=== PATIENT | female | born 1940 | race Two or more races ===

== ENCOUNTER → 2017-04-07 | Outpatient (CLI) | payer OTHER, MEDICAID ==
[2015-08-22 13:05] VITALS: BP 162/81
--- NOTE | 2017-04-07 13:37 | RAD ---
Ankle brachial index Indication: Claudication. Comparison: None. Procedure: Arterial pressures are measured in the arms and ankles. Findings: Right ankle (PT): 135 mm Hg. Right arm: 134 mm Hg. Left ankle (DP): 131 mm Hg. Left arm: 129 mm Hg. Right MADELINE: 1.0. Left MADELINE: 0.97. Impression: Normal MADELINE. Bilateral lower extremity arterial Doppler Comparison: None. Findings: Grayscale, color Doppler, and spectral Doppler imaging was performed of the arteries of both lower extremities. The common femoral artery, superficial femoral artery, profunda femoral artery, popliteal artery, peroneal artery, anterior tibial artery, posterior tibial artery, and dorsalis pedis artery were evaluated. Grayscale imaging demonstrates fairly diffuse atherosclerotic plaquing. The arteries of both lower extremities are patent and demonstrate primarily biphasic waveforms with the exception of the bilateral dorsalis pedis arteries which demonstrate primarily monophasic waveforms. No focal elevation of velocity to suggest focal stenosis is seen. The following velocities were obtained: Right common femoral artery 146 cm/sec Right superficial femoral artery 155 cm/sec Right popliteal artery 76 cm/sec Right posterior tibial artery 51 cm/sec Right dorsalis pedis artery 145 cm/sec Left common femoral artery 140 cm/sec Left superficial femoral artery 184 cm/sec Left popliteal artery 122 cm/sec Left posterior tibial artery 109 cm/sec Left dorsalis pedis artery 106 cm/sec Impression: Arteries of both lower extremities are patent and no focal stenosis is identified.
[2017-04-07 13:52] LABS: FREE T4 1.15 ng/dL (0.76-1.46)
== END | disposition home or self-care (01) ==
LOC: US 12:10
PROVIDERS: ATTEND Family Medicine
DX: I73.9 Peripheral vascular disease, unspecified (principal); E11.9 Type 2 diabetes mellitus without complications; E78.5 Hyperlipidemia, unspecified; E03.9 Hypothyroidism, unspecified; I10 Essential (primary) hypertension
CPT/HCPCS: 36415; 83036; 84439; 84443; 93922; 93925

== ENCOUNTER → 2017-06-28 | Outpatient (CLI) | payer OTHER, MEDICAID ==
[2015-08-22 13:05] VITALS: BP 162/81
--- NOTE | 2017-06-28 16:03 | RAD ---
DATE: 06/28/2017 EXAM: DIGITAL SCREEN BILAT W/CAD HISTORY: 76-year-old female for routine screening. History of right breast biopsy showing malignant pathology in 1997. COMPARISON: Study from 06/26/2016 and 06/24/2015 This study was interpreted with the benefit of Computerized Aided Detection (CAD). The breast parenchyma shows scattered fibroglandular densities. Breast parenchyma level B. FINDINGS: Stable Post therapeutic changes in the right breast retroareolar region with overlying skin thickening. Benign bilateral calcifications. No suspicious calcifications, spiculated mass or new areas of architectural distortion. IMPRESSION: Stable mammograms without evidence of malignancy. BI-RADS CATEGORY: 2 BENIGN FINDING(S) RECOMMENDED FOLLOW-UP: 12M 12 MONTH FOLLOW-UP PQRS compliance statement: Patient information was entered into a reminder system with a target due date 06/28/2018 for the next mammogram. Mammography is a sensitive method for finding small breast cancers, but it does not detect them all and is not a substitute for careful clinical examination. A negative mammogram does not negate a clinically suspicious finding and should not result in delay in biopsying a clinically suspicious abnormality. "Our facility is accredited by the [employer] Mammography Program."
== END | disposition home or self-care (01) ==
LOC: MAMMO 11:00
PROVIDERS: ATTEND Family Medicine
DX: Z12.31 Encounter for screening mammogram for malignant neoplasm of breast (principal)
CPT/HCPCS: G0202; 77067

== ENCOUNTER 2017-08-23 21:48 | Inpatient (IN) | payer OTHER, MEDICAID ==
[~2017-08-23] VITALS: Ht 160 cm; Wt 73.9 kg
[2017-08-23 22:26] LABS: BASO % 0 % (0-3); EOS % 3 % (0-3); HEMATOCRIT 29.9 % (36.0-47.0); HEMOGLOBIN 10.1 g/dL (12.0-15.5); LYMPH % 19 % (24-48); MEAN CORPUSCULAR HEMOGLOBIN 31 pg (25-35); MEAN CORPUSCULAR HGB CONC 34 g/dL (31-37); MEAN CORPUSCULAR VOLUME 93 fL (79-100); MONO % 9 % (0-9); NEUT % 69 % (31-73); PLATELET COUNT 234 x10^3/uL (140-400); RED BLOOD COUNT 3.22 x10^6/uL (3.50-5.40); RED CELL DISTRIBUTION WIDTH 13.6 % (11.5-14.5); WHITE BLOOD COUNT 5.2 x10^3/uL (4.0-11.0)
[2017-08-23] MEDS ORDERED: ONDANSETRON PF 4 MG/2 ML VIAL. IV ONE (22:30)
[2017-08-23 22:44] LABS: ALBUMIN 2.9 g/dL (3.4-5.0); ALBUMIN/GLOBULIN RATIO 0.7 (1.0-1.7); CALCIUM 8.3 mg/dL (8.5-10.1); CREATININE 1.8 mg/dL (0.6-1.0); GFR 27.4; POTASSIUM 4.1 mmol/L (3.5-5.1); TOTAL BILIRUBIN 0.1 mg/dL (0.2-1.0); TOTAL PROTEIN 7.1 g/dL (6.4-8.2)
--- NOTE | 2017-08-23 22:47 | RAD ---
CT head without intravenous contrast History: Headache. Comparison: None. Technique: Axial images are obtained of the head from the skull base through the vertex without IV contrast. Exposure: One or more of the following individualized dose reduction techniques were utilized for this examination: 1. Automated exposure control 2. Adjustment of the mA and/or kV according to patient size 3. Use of iterative reconstruction technique Findings: The ventricles are appropriate in size, shape, and location for the patient's age. No obvious intracranial mass, mass-effect, midline shift, hemorrhage or obvious acute infarction is identified. Basilar cisterns are patent. Bone windows demonstrate no acute calvarial abnormality. The visualized paranasal sinuses appear clear. Impression: No acute intracranial process. Please note that CT can be relatively insensitive to acute ischemic infarction for up to 24 hours after symptom onset. Electronically signed by: Jose Brasher MD (08/23/2017 10:44 PM) [facility]
[2017-08-23 22:51] LABS: CKMB MASS 3.7 ng/mL (0.0-3.6)
--- NOTE | 2017-08-23 22:58 | PHYS DOC ---
Past Medical History Past Medical History: Diabetes-Type II, High Cholesterol, Hypertension, Kidney Stone Additional Past Medical Histor: Thyroid Past Surgical History: Other Additional Past Surgical Histo: throat sx, tumor removed from R breast; kidney stone removal Additional Information: non smoker Alcohol Use: None Drug Use: None Adult General Chief Complaint Chief Complaint: MULTIPLE COMPLAINTS HPI HPI Patient is a 77 year old female who presents with abdominal cramping, nausea with some spitting up and diarrhea. This all started on Wednesday. Just as a dull headache. This is been persistent since then. She is a diabetic and checked her sugar today and it was 75. She's not been able to keep down much per the granddaughter. Patient is Frisian-speaking the granddaughters and interpreted. She is followed by Dr. Medina. She has no chest pain, no difficulty breathing. No visual change. Bath slightly lightheaded earlier. Has chronic back pain. Review of Systems Review of Systems Constitutional: Denies fever or chills Eyes: Denies change in visual acuity, redness, or eye pain HENT: Denies nasal congestion or sore throat Respiratory: Denies cough or shortness of breath Cardiovascular: No chest pain GI: POS abdominal cramping, POS nausea, vomiting, NO bloody stools; POS diarrhea : Denies dysuria or hematuria Musculoskeletal: Denies back pain or joint pain Integument: Denies rash or skin lesions Neurologic: Denies headache, focal weakness or sensory changes Current Medications Current Medications Current Medications Medications (Trade) Dose Ordered Sig/Tacho Start Time Stop Time Status Last Admin Dose Admin Ondansetron HCl (Zofran) 4 mg PRN Q8HRS PRN 08/23/17 23:00 08/24/17 22:59 Allergies Allergies Allergies Coded Allergies Type Severity Reaction Last Updated Verified No Known Drug Allergies 04/11/15 No Physical Exam Physical Exam Constitutional: Well developed, well nourished, no acute distress, non-toxic appearance. HENT: Normocephalic, atraumatic, bilateral external ears normal, oropharynx moist, no oral exudates, nose normal. Eyes: PERRLA, EOMI, conjunctiva normal, no discharge. Neck: Normal range of motion, no tenderness, supple, no stridor. Cardiovascular:Heart rate regular rhythm, no murmur Lungs & Thorax: Bilateral breath sounds clear to auscultation Abdomen: Bowel sounds normal, soft, minimal tenderness to lower abdomen, no masses, no pulsatile masses. Skin: Warm, dry, no erythema, no rash. Back: No tenderness, no CVA tenderness. Extremities: No tenderness, no cyanosis, no clubbing, ROM intact, no edema. Neurologic: Alert and oriented X 3, normal motor function, normal sensory function, no focal deficits noted. Psychologic: Affect normal, judgement normal, mood normal. Current Patient Data Vital Signs Vital Signs Date Time Temp Pulse Resp B/P (MAP) Pulse Ox O2 Delivery O2 Flow Rate FiO2 08/23/17 23:00 68 16 145/67 (93) 100 Room Air 08/23/17 22:00 98.6 98.6 Lab Values Laboratory Tests Test 08/23/17 22:19 White Blood Count 5.2 x10^3/uL (4.0-11.0) Red Blood Count 3.22 x10^6/uL (3.50-5.40) L Hemoglobin 10.1 g/dL (12.0-15.5) L Hematocrit 29.9 % (36.0-47.0) L Mean Corpuscular Volume 93 fL (79-100) Mean Corpuscular Hemoglobin 31 pg (25-35) Mean Corpuscular Hemoglobin Concent 34 g/dL (31-37) Red Cell Distribution Width 13.6 % (11.5-14.5) Platelet Count 234 x10^3/uL (140-400) Neutrophils (%) (Auto) 69 % (31-73) Lymphocytes (%) (Auto) 19 % (24-48) L Monocytes (%) (Auto) 9 % (0-9) Eosinophils (%) (Auto) 3 % (0-3) Basophils (%) (Auto) 0 % (0-3) Neutrophils # (Auto) 3.6 x10^3uL (1.8-7.7) Lymphocytes # (Auto) 1.0 x10^3/uL (1.0-4.8) Monocytes # (Auto) 0.4 x10^3/uL (0.0-1.1) Eosinophils # (Auto) 0.2 x10^3/uL (0.0-0.7) Basophils # (Auto) 0.0 x10^3/uL (0.0-0.2) Sodium Level 135 mmol/L (136-145) L Potassium Level 4.1 mmol/L (3.5-5.1) Chloride Level 102 mmol/L (98-107) Carbon Dioxide Level 22 mmol/L (21-32) Anion Gap 11 (6-14) Blood Urea Nitrogen 47 mg/dL (7-20) H Creatinine 1.8 mg/dL (0.6-1.0) H Estimated GFR (Cockcroft-Gault) 27.4 BUN/Creatinine Ratio 26 (6-20) H Glucose Level 87 mg/dL (70-99) Calcium Level 8.3 mg/dL (8.5-10.1) L Total Bilirubin 0.1 mg/dL (0.2-1.0) L Aspartate Amino Transferase (AST) 21 U/L (15-37) Alanine Aminotransferase (ALT) 24 U/L (14-59) Alkaline Phosphatase 81 U/L (46-116) Creatine Kinase 232 U/L (26-192) H Creatine Kinase MB (Mass) 3.7 ng/mL (0.0-3.6) H Creatine Kinase MB Relative Index 1.6 % (0-4) Troponin I Quantitative < 0.017 ng/mL (0.000-0.055) MT-[id number]-[id number]-Type Natriuretic Peptide 170 pg/mL (0-449) Total Protein 7.1 g/dL (6.4-8.2) Albumin 2.9 g/dL (3.4-5.0) L Albumin/Globulin Ratio 0.7 (1.0-1.7) L Laboratory Tests 08/23/17 22:19 Laboratory Tests 08/23/17 22:19 EKG EKG EKG interpreted by myself at 2223 PM shows sinus rhythm, rate of 69, left vásquez axis, nonspecific ST changes, no ST elevation. Radiology/Procedures Radiology/Procedures CXR interpreted by myself at 2250 PM: No acute infiltrate, there is a nodule in the left lower lobe unclear if this is old. Last chest x-ray 03/04/2007 does not show the nodule. No pleural effusion [facility] [address] [place], [place] [id number] IMAGING REPORT Signed PATIENT: MISTYSERAKIKINAN ACCOUNT: [id number] : 1940 LOCATION: ER AGE: 77 SEX: F EXAM STATUS: REG ER ORD. PHYSICIAN: EVELIA RUSSELL MD REASON: HEADACHE PROCEDURE: CT HEAD WO CONTRAST CT head without intravenous contrast History: Headache. Comparison: None. Technique: Axial images are obtained of the head from the skull base through the vertex without IV contrast. Exposure: One or more of the following individualized dose reduction techniques were utilized for this examination: 1. Automated exposure control 2. Adjustment of the mA and/or kV according to patient size 3. Use of iterative reconstruction technique Findings: The ventricles are appropriate in size, shape, and location for the patient's age. No obvious intracranial mass, mass-effect, midline shift, hemorrhage or obvious acute infarction is identified. Basilar cisterns are patent. Bone windows demonstrate no acute calvarial abnormality. The visualized paranasal sinuses appear clear. Impression: No acute intracranial process. Please note that CT can be relatively insensitive to acute ischemic infarction for up to 24 hours after symptom onset. Electronically signed by: Jose Hendrix MD (08/23/2017 10:44 PM) [facility] DICTATED and SIGNED BY: JOSE HENDRIX MD DATE: 08/23/172240 CC: EVELIA RUSSELL MD; MAXIMILIAN MEDINA MD ~ Course & Med Decision Making Course & Med Decision Making Patient evaluated upon arrival to room 18. EKG is performed with no STEMI. Symptomatology is vague. She is Frisian-speaking but her granddaughter is here to interpret. She does complain significant only of a headache and nausea with abdominal cramping and loose stools. CT head was ordered. Labs are data obtained.At 2250 PM: lab returning. BUN and CR are elevated (indicating volume loss from diarrhea and nausea). CT head negative. Will admit; fluid hydration ( cannot eat or drink per granddaughter). Dr Mercado contacted for admission. I have spoken with the patient and/or caregivers. I have explained the patient' s condition, diagnosis and treatment plan based on the information available to me at this time. I have answered the patient's and/or caregiver's questions and addressed any concerns. The patient and/or caregivers have as good an understanding of the patient's diagnosis, condition and treatment plan as can be expected at this point. The patient has been stabilized within the capability of the emergency department. The patient will be transported for further care and management or will be moved to an observation or inpatient service. I have communicated with the staff or medical practitioner taking over this patient's care. I have assessed this patient clinically and believe that their condition requires admission to the hospital. After consulting the admitting physician about this case, they have asked that I admit this patient to their service as an inpatient based on the clinical presentation and my impression. Dragon Disclaimer Dragon Disclaimer This electronic medical record was generated, in whole or in part, using a voice recognition dictation system. Departure Departure Impression: Primary Impression: Dehydration Additional Impressions: Nausea vomiting and diarrhea Diabetes Disposition: ADMITTED INPATIENT Admitting Physician: Liya Mercado Referrals: MAXIMILIAN MEDINA MD (PCP) Problem Qualifiers Additional Impressions: Diabetes Diabetes mellitus type: type 2 Diabetes mellitus complication status: with unspecified complications Diabetes mellitus rn long term care insulin use: unspecified [facility] insulin use status Qualified Codes: E11.8 - Type 2 diabetes mellitus with unspecified complications EVELIA RUSSELL MD Aug 23, 2017 22:58
[2017-08-23] MEDS ORDERED: ONDANSETRON PF 4 MG/2 ML VIAL. IV PRN (23:00)
[2017-08-23] MEDS ORDERED: IV NORMAL SALINE 1000ML BAG 1,000 ML IV ONE ×2 (23:30)
[2017-08-24] VITALS (7 sets, daily range): BP systolic 94–151; BP diastolic 42–59
[2017-08-24] MEDS ORDERED: PNEUMOCOCCAL VAX SCREEN BY RX. MC ONE (02:00)
[2017-08-24] MEDS ORDERED: HUM100VI4 SQ (05:33)
--- NOTE | 2017-08-24 07:37 | RAD ---
Indication: Abdominal pain and dizziness. Technique: Upright portable chest radiograph was obtained and compared to a study from February 11, 2009. Findings: The lungs are clear. Bilateral symmetric nodular densities are likely nipple shadows. The heart is not enlarged and there is no heart failure. There is atheromatous disease in the thoracic aorta. Leads overlie the patient. There are degenerative changes in the shoulders. There are clips in the right axilla. Impression: No acute thoracic findings.
--- NOTE | 2017-08-24 08:14 | EKG ---
[facility] [address] [place] [address] Test Date: 2017-08-23 Test Time: 22:23:05 Pat Name: NAN BEAULIEUDepartment: Room: [facility] Gender: F Hall Cleaner: : 1940 Requested By: EVELIA RUSSELL Order Number: [id number] Reading MD: Dakota Cotton Measurements Intervals [place] Rate: 69 P: 36 MD: 184 QRS: -16 QRSD: 76 T: 25 QT: 398 QTc: 428 Interpretive Statements SINUS RHYTHM Electronically Signed On 09-06-2017 9:21:28 CDT by Dakota Cotton
[2017-08-24] MEDS ORDERED: PNEUMOC CONJ VACC 23-VALENT 0.5 ML VIAL. VAX IM ONE (09:00)
--- NOTE | 2017-08-24 09:00 | PDOC1 ---
History and Physical Date of Admission Date of Admission DATE: 08/24/17 TIME: 08:58 Identification/Chief Complaint Chief Complaint diarrhea, abd pain Problems: Source Source: Caregiver, Chart review, Patient History of Present Illness History of Present Illness Ms. Paul Winn, is a 77 year old female admit from ER overnight with acute abdominal cramping and pain, pain 8/10, now better She has nausea with some spitting up and diarrhea. Denied vomiting Symptoms started 2 days ago, weakness and myalgia, no fever, no chills, then diarrhea overnight, poor PO intake > 2 days She is followed by Dr. Valladares. She has no chest pain, no difficulty breathing. complaint with meds, 70/30 insulin for Dm2 Past Medical History Cardiovascular: No pertinent hx Hepatobiliary: No pertinent hx Psych: No pertinent hx Infectious disease: Bacterial vaginosis ENT: No pertinent hx Renal/: No pertinent hx Endocrine: Diabetes Family History Family History: Diabetes Social History Smoke: No ALCOHOL: none Drugs: None Current Problem List Problem List Problems Medical Problems: (1) Dehydration Status: Acute (2) Diabetes Status: Acute (3) Nausea vomiting and diarrhea Status: Acute Problems: Current Medications Current Medications Current Medications Ondansetron HCl (Zofran) 4 mg 1X ONCE IV Last administered on 08/23/17 22:50 ; Start 08/23/17 at 22:30; Stop 08/23/17 at 22:31; Status DC Ondansetron HCl (Zofran) 4 mg PRN Q8HRS PRN IV NAUSEA/VOMITING; Start at 23:00; Stop 08/24/17 at 22:59 Sodium Chloride 1,000 ml @ 125 mls/hr 1X ONCE IV Last administered on 23:25; Start 08/23/17 at 23:30; Stop 08/24/17 at 07:29; Status DC Sodium Chloride 1,000 ml @ 125 mls/hr 1X ONCE IV Last administered on 08:39; Start 08/23/17 at 23:30; Stop 08/24/17 at 07:29; Status DC Pneumococcal Polyvalent Vaccine (Do NOT chart on this placeholder) 1 each 1X ONCE MC ; Start 08/24/17 at 02:00; Stop 08/24/17 at 02:01; Status UNV Pneumococcal Polyvalent Vaccine (Pneumovax 23) 0.5 ml ONCE ONCE VAX IM ; Start 08/24/17 at 09:00; Stop 08/24/17 at 09:01 Active Scripts Active Reported Relion Novolin 70-30 Vial (Hum Insulin Nph/Reg Insulin Hm) 100 Unit/1 Ml Vial 25 Unit SQ [id number] Allergies Allergies: Coded Allergies: No Known Drug Allergies (Unverified , 04/11/15) ROS General: YES: Fatigue, Malaise, Appetite, No: Chills, Night Sweats, Other PSYCHOLOGICAL ROS: No: Anxiety, Behavioral Disorder, Concentration difficultie , Decreased libido, Depression, Disorientation, Hallucinations, Hostility, Irritablity, Memory difficulties, Mood Swings, Obsessive thoughts, Physical abuse, Sexual abuse, Sleep disturbances, Suicidal ideation, Other Eyes: No Blurry vision, No Decreased vision, No Double vision, No Dry eyes, No Excessive tearing, No Eye Pain, No Itchy Eyes, No Loss of vision, No Photophobia , No Scotomata, No Uses contacts, No Uses glasses, No Other Gastrointestinal: Yes Nausea, Yes Abdominal Pain, Yes Diarrhea, No Vomiting, No Constipation, No Melena, No Hematochezia, No Other Genitourinary: No Dysuria, No Frequency, No Incontinence, No Hematuria, No Retention, No Discharge, No Urgency, No Pain, No Flank Pain, No Other, No , No , No , No , No , No , No Musculoskeletal: No Gait Disturbance, No Joint Pain, No Joint Stiffness, No Joint Swelling, No Muscle Pain, No Muscular Weakness, No Pain In:, No Swelling In:, No Other Neurological: No Behavorial Changes, No Bowel/Bladder ControlChng, No Confusion , No Dizziness, No Gait Disturbance, No Headaches, No Impaired Coord/balance, No Memory Loss, No Numbness/Tingling, No Seizures, No Speech Problems, No Tremors, No Visual Changes, No Weakness, No Other Skin: No Dry Skin, No Eczema, No Hair Changes, No Lumps, No Mole Changes, No Mottling, No Nail Changes, No Pruritus, No Rash, No Skin Lesion Changes, No Other, No Acne Physical Exam General: Alert, Oriented X3, Cooperative, mild distress HEENT: PERRLA, EOMI, Mucous membr. moist/pink Lungs: Clear to auscultation, Normal air movement Heart: S1S2, no gallops, no murmurs Abdomen: Normal bowel sounds (active, ), Soft, Other (slight pain, no peritoneal, no guarding) Extremities: No clubbing, No cyanosis, No edema, Normal pulses Skin: No rashes Neuro: Normal speech, Cranial nerves 3-12 NL Psych/Mental Status: Mental status NL, Mood NL Vitals Vitals Vital Signs Date Time Temp Pulse Resp B/P (MAP) Pulse Ox O2 Delivery O2 Flow Rate FiO2 08/24/17 08:00 Room Air 08/24/17 07:00 97.9 63 18 99/54 (69) 99 97.9 Labs Labs Laboratory Tests Test 08/23/17 22:19 White Blood Count 5.2 x10^3/uL (4.0-11.0) Red Blood Count 3.22 x10^6/uL (3.50-5.40) Hemoglobin 10.1 g/dL (12.0-15.5) Hematocrit 29.9 % (36.0-47.0) Mean Corpuscular Volume 93 fL (79-100) Mean Corpuscular Hemoglobin 31 pg (25-35) Mean Corpuscular Hemoglobin Concent 34 g/dL (31-37) Red Cell Distribution Width 13.6 % (11.5-14.5) Platelet Count 234 x10^3/uL (140-400) Neutrophils (%) (Auto) 69 % (31-73) Lymphocytes (%) (Auto) 19 % (24-48) Monocytes (%) (Auto) 9 % (0-9) Eosinophils (%) (Auto) 3 % (0-3) Basophils (%) (Auto) 0 % (0-3) Neutrophils # (Auto) 3.6 x10^3uL (1.8-7.7) Lymphocytes # (Auto) 1.0 x10^3/uL (1.0-4.8) Monocytes # (Auto) 0.4 x10^3/uL (0.0-1.1) Eosinophils # (Auto) 0.2 x10^3/uL (0.0-0.7) Basophils # (Auto) 0.0 x10^3/uL (0.0-0.2) Sodium Level 135 mmol/L (136-145) Potassium Level 4.1 mmol/L (3.5-5.1) Chloride Level 102 mmol/L (98-107) Carbon Dioxide Level 22 mmol/L (21-32) Anion Gap 11 (6-14) Blood Urea Nitrogen 47 mg/dL (7-20) Creatinine 1.8 mg/dL (0.6-1.0) Estimated GFR (Cockcroft-Gault) 27.4 BUN/Creatinine Ratio 26 (6-20) Glucose Level 87 mg/dL (70-99) Calcium Level 8.3 mg/dL (8.5-10.1) Total Bilirubin 0.1 mg/dL (0.2-1.0) Aspartate Amino Transf (AST/SGOT) 21 U/L (15-37) Alanine Aminotransferase (ALT/SGPT) 24 U/L (14-59) Alkaline Phosphatase 81 U/L (46-116) Creatine Kinase 232 U/L (26-192) Creatine Kinase MB (Mass) 3.7 ng/mL (0.0-3.6) Creatine Kinase MB Relative Index 1.6 % (0-4) Troponin I Quantitative < 0.017 ng/mL (0.000-0.055) [id number]-Type Natriuretic Peptide 170 pg/mL (0-449) Total Protein 7.1 g/dL (6.4-8.2) Albumin 2.9 g/dL (3.4-5.0) Albumin/Globulin Ratio 0.7 (1.0-1.7) Laboratory Tests Test 08/23/17 22:19 White Blood Count 5.2 x10^3/uL (4.0-11.0) Red Blood Count 3.22 x10^6/uL (3.50-5.40) Hemoglobin 10.1 g/dL (12.0-15.5) Hematocrit 29.9 % (36.0-47.0) Mean Corpuscular Volume 93 fL (79-100) Mean Corpuscular Hemoglobin 31 pg (25-35) Mean Corpuscular Hemoglobin Concent 34 g/dL (31-37) Red Cell Distribution Width 13.6 % (11.5-14.5) Platelet Count 234 x10^3/uL (140-400) Neutrophils (%) (Auto) 69 % (31-73) Lymphocytes (%) (Auto) 19 % (24-48) Monocytes (%) (Auto) 9 % (0-9) Eosinophils (%) (Auto) 3 % (0-3) Basophils (%) (Auto) 0 % (0-3) Neutrophils # (Auto) 3.6 x10^3uL (1.8-7.7) Lymphocytes # (Auto) 1.0 x10^3/uL (1.0-4.8) Monocytes # (Auto) 0.4 x10^3/uL (0.0-1.1) Eosinophils # (Auto) 0.2 x10^3/uL (0.0-0.7) Basophils # (Auto) 0.0 x10^3/uL (0.0-0.2) Sodium Level 135 mmol/L (136-145) Potassium Level 4.1 mmol/L (3.5-5.1) Chloride Level 102 mmol/L (98-107) Carbon Dioxide Level 22 mmol/L (21-32) Anion Gap 11 (6-14) Blood Urea Nitrogen 47 mg/dL (7-20) Creatinine 1.8 mg/dL (0.6-1.0) Estimated GFR (Cockcroft-Gault) 27.4 BUN/Creatinine Ratio 26 (6-20) Glucose Level 87 mg/dL (70-99) Calcium Level 8.3 mg/dL (8.5-10.1) Total Bilirubin 0.1 mg/dL (0.2-1.0) Aspartate Amino Transf (AST/SGOT) 21 U/L (15-37) Alanine Aminotransferase (ALT/SGPT) 24 U/L (14-59) Alkaline Phosphatase 81 U/L (46-116) Creatine Kinase 232 U/L (26-192) Creatine Kinase MB (Mass) 3.7 ng/mL (0.0-3.6) Creatine Kinase MB Relative Index 1.6 % (0-4) Troponin I Quantitative < 0.017 ng/mL (0.000-0.055) TH-[id number]-I-Type Natriuretic Peptide 170 pg/mL (0-449) Total Protein 7.1 g/dL (6.4-8.2) Albumin 2.9 g/dL (3.4-5.0) Albumin/Globulin Ratio 0.7 (1.0-1.7) VTE Prophylaxis Ordered VTE Prophylaxis Devices: No VTE Pharmacological Prophylaxi: Yes Assessment/Plan Assessment/Plan diarrhea acute viral illness acute renal failure, vasomotor nephropathy, dry with hyponatremia weakness and debility acute mild.moderate malnutrition, hypoalbumin from acute illness Dm2, insulin, poor control VALENCIA OWENS MD Aug 24, 2017 08:59
[2017-08-24] MEDS: INSULN ASP PRT/INSULIN ASPART 300 UNITS/3 ML INSULN.PEN. SQ SCH (09:30)
[2017-08-24 09:52] LABS: BASO % 0 % (0-3); EOS % 3 % (0-3); HEMATOCRIT 27.2 % (36.0-47.0); HEMOGLOBIN 9.3 g/dL (12.0-15.5); LYMPH # 1.3 x10^3/uL (1.0-4.8); LYMPH % 29 % (24-48); MEAN CORPUSCULAR HEMOGLOBIN 31 pg (25-35); MEAN CORPUSCULAR HGB CONC 34 g/dL (31-37); MEAN CORPUSCULAR VOLUME 91 fL (79-100); MONO % 9 % (0-9); NEUT % 59 % (31-73); PLATELET COUNT 217 x10^3/uL (140-400); RED BLOOD COUNT 2.98 x10^6/uL (3.50-5.40); RED CELL DISTRIBUTION WIDTH 13.6 % (11.5-14.5); WHITE BLOOD COUNT 4.6 x10^3/uL (4.0-11.0)
[2017-08-24 10:10] LABS: ALBUMIN 2.6 g/dL (3.4-5.0); ALBUMIN/GLOBULIN RATIO 0.7 (1.0-1.7); CALCIUM 7.7 mg/dL (8.5-10.1); CREATININE 1.5 mg/dL (0.6-1.0); GFR 33.8; POTASSIUM 4.4 mmol/L (3.5-5.1); TOTAL BILIRUBIN 0.1 mg/dL (0.2-1.0); TOTAL PROTEIN 6.5 g/dL (6.4-8.2)
--- NOTE | 2017-08-24 10:46 | PDOC2 ---
CONSULT Date of Consult Date of Consult DATE: 08/24/17 TIME: 10:44 Reason for Consult Reason for Consult: ALEENA Referring Physician Referring Physician: Dr Mercado Identification/Chief Complaint Chief Complaint NVD Problems: Source Source: Chart review, Patient History of Present Illness Reason for Visit: as dictated Social History No ALCOHOL: none Drugs: None Lives: with Family Current Problem List Problem List Problems Medical Problems: (1) Dehydration Status: Acute (2) Diabetes Status: Acute (3) Nausea vomiting and diarrhea Status: Acute Current Medications Current Medications Current Medications Ondansetron HCl (Zofran) 4 mg 1X ONCE IV Last administered on 08/23/17 22:50 ; Start 08/23/17 at 22:30; Stop 08/23/17 at 22:31; Status DC Ondansetron HCl (Zofran) 4 mg PRN Q8HRS PRN IV NAUSEA/VOMITING; Start at 23:00; Stop 08/24/17 at 22:59 Sodium Chloride 1,000 ml @ 125 mls/hr 1X ONCE IV Last administered on 23:25; Start 08/23/17 at 23:30; Stop 08/24/17 at 07:29; Status DC Sodium Chloride 1,000 ml @ 125 mls/hr 1X ONCE IV Last administered on 08:39; Start 08/23/17 at 23:30; Stop 08/24/17 at 07:29; Status DC Pneumococcal Polyvalent Vaccine (Do NOT chart on this placeholder) 1 each 1X ONCE MC ; Start 08/24/17 at 02:00; Stop 08/24/17 at 02:01; Status UNV Pneumococcal Polyvalent Vaccine (Pneumovax 23) 0.5 ml ONCE ONCE VAX IM ; Start 08/24/17 at 09:00; Stop 08/24/17 at 09:01; Status DC Insulin Aspart Prota 70%/Aspart 30% (Novolog Mix 70-30) 25 units DAILYWBKFT SQ ; Start 08/24/17 at 09:30 Sodium Chloride 1,000 ml @ 75 mls/hr [id number] IV ; Start 08/24/17 at 10:00 Active Scripts Active Reported Relion Novolin 70-30 Vial (Hum Insulin Nph/Reg Insulin Hm) 100 Unit/1 Ml Vial 25 Unit SQ DAILYWBKFT Allergies Allergies: Coded Allergies: No Known Drug Allergies (Unverified , 04/11/15) ROS Review of System GEN: ? Fevers subj Chills EYES: no new Visual Complaints ENT: no EN Drainage no Hearing deficiets CVS: no Orthopnea no CP RESP: no SOB no JEAN GI: + Nausea no Vomiting +ve Consitpatina nd Diarrhea : no Dysuria no Urgency HEME: no easy bruising no Palp Ly Nodes NEURO no Focal Weakness no Sz PSYCH: no Suicidal Ideation no Depression SKIN: no Rashes ENDO: no Polyuria or Polydipsia no Hot/Cold Intolerance MU SK: occ Arthraigia no current Myalgia Physical Exam Physical Exam General Appearance: Awake Alert Oriented x 3 In no Distress Eyes: VIsion Unchanged Conjunctiva Normal EN: No EN Drainage Mucous Memb. moist Neck: no JVD no JVP Supple no Thyromegaly CVS: S1 S2 no Murmur No Gallop No Rub no Edema Resp: no Rales no Rhonchi no Acc. Muscle use GI: BAS +ve NO Bruit Non Tender Non Distended : no CVA tenderness; no Suprapubic Tenderness SKIN: no Rashes Breast Exam deferred Mu.Sk: Adequate ROM no Muscle Atrophy Heme: Unable to palpate Obvious LAD no Splenomegaly NEURO: Good Strength and Tone Cranial Nerves II - XII grossly intact Psych: not Depressed no Active hallucination Vital Signs Vital Signs Date Time Temp Pulse Resp B/P (MAP) Pulse Ox O2 Delivery O2 Flow Rate FiO2 08/24/17 08:00 Room Air 08/24/17 07:00 97.9 63 18 99/54 (69) 99 97.9 Assessment & Plan ALEENA - VMn due to diarrhea and NSAID use as home: now better CKD III underlying due to Dm etc cannot be rueld otu. Current FLuid and E-lyte status does not necessitate emergent need for Dialysis. Will re-evaluate for Dialysis in am Vol depletion - Better with IVF - now asymptomatic Anemia: check Iron; HTN: Current BP meds reviewed. See orders for changes. Low keya John - Barely corrects for low abl Low Alb - check UA for protienruia Discussed Plan of Care and prognosis etc. at length with family. Labs Labs Laboratory Tests Test 08/23/17 22:19 08/24/17 09:30 08/24/17 10:02 White Blood Count 5.2 x10^3/uL (4.0-11.0) 4.6 x10^3/uL (4.0-11.0) Red Blood Count 3.22 x10^6/uL (3.50-5.40) 2.98 x10^6/uL (3.50-5.40) Hemoglobin 10.1 g/dL (12.0-15.5) 9.3 g/dL (12.0-15.5) Hematocrit 29.9 % (36.0-47.0) 27.2 % (36.0-47.0) Mean Corpuscular Volume 93 fL (79-100) 91 fL (79-100) Mean Corpuscular Hemoglobin 31 pg (25-35) 31 pg (25-35) Mean Corpuscular Hemoglobin Concent 34 g/dL (31-37) 34 g/dL (31-37) Red Cell Distribution Width 13.6 % (11.5-14.5) 13.6 % (11.5-14.5) Platelet Count 234 x10^3/uL (140-400) 217 x10^3/uL (140-400) Neutrophils (%) (Auto) 69 % (31-73) 59 % (31-73) Lymphocytes (%) (Auto) 19 % (24-48) 29 % (24-48) Monocytes (%) (Auto) 9 % (0-9) 9 % (0-9) Eosinophils (%) (Auto) 3 % (0-3) 3 % (0-3) Basophils (%) (Auto) 0 % (0-3) 0 % (0-3) Neutrophils # (Auto) 3.6 x10^3uL (1.8-7.7) 2.7 x10^3uL (1.8-7.7) Lymphocytes # (Auto) 1.0 x10^3/uL (1.0-4.8) 1.3 x10^3/uL (1.0-4.8) Monocytes # (Auto) 0.4 x10^3/uL (0.0-1.1) 0.4 x10^3/uL (0.0-1.1) Eosinophils # (Auto) 0.2 x10^3/uL (0.0-0.7) 0.1 x10^3/uL (0.0-0.7) Basophils # (Auto) 0.0 x10^3/uL (0.0-0.2) 0.0 x10^3/uL (0.0-0.2) Sodium Level 135 mmol/L (136-145) 138 mmol/L (136-145) Potassium Level 4.1 mmol/L (3.5-5.1) 4.4 mmol/L (3.5-5.1) Chloride Level 102 mmol/L (98-107) 108 mmol/L (98-107) Carbon Dioxide Level 22 mmol/L (21-32) 21 mmol/L (21-32) Anion Gap 11 (6-14) 9 (6-14) Blood Urea Nitrogen 47 mg/dL (7-20) 34 mg/dL (7-20) Creatinine 1.8 mg/dL (0.6-1.0) 1.5 mg/dL (0.6-1.0) Estimated GFR (Cockcroft-Gault) 27.4 33.8 BUN/Creatinine Ratio 26 (6-20) 23 (6-20) Glucose Level 87 mg/dL (70-99) 131 mg/dL (70-99) Calcium Level 8.3 mg/dL (8.5-10.1) 7.7 mg/dL (8.5-10.1) Total Bilirubin 0.1 mg/dL (0.2-1.0) 0.1 mg/dL (0.2-1.0) Aspartate Amino Transf (AST/SGOT) 21 U/L (15-37) 20 U/L (15-37) Alanine Aminotransferase (ALT/SGPT) 24 U/L (14-59) 21 U/L (14-59) Alkaline Phosphatase 81 U/L (46-116) 75 U/L (46-116) Creatine Kinase 232 U/L (26-192) Creatine Kinase MB (Mass) 3.7 ng/mL (0.0-3.6) Creatine Kinase MB Relative Index 1.6 % (0-4) Troponin I Quantitative < 0.017 ng/mL (0.000-0.055) II-Rfz-P-Type Natriuretic Peptide 170 pg/mL (0-449) Total Protein 7.1 g/dL (6.4-8.2) 6.5 g/dL (6.4-8.2) Albumin 2.9 g/dL (3.4-5.0) 2.6 g/dL (3.4-5.0) Albumin/Globulin Ratio 0.7 (1.0-1.7) 0.7 (1.0-1.7) Glucose (Fingerstick) 147 mg/dL (70-99) Laboratory Tests Test 08/23/17 22:19 08/24/17 09:30 08/24/17 10:02 White Blood Count 5.2 x10^3/uL (4.0-11.0) 4.6 x10^3/uL (4.0-11.0) Red Blood Count 3.22 x10^6/uL (3.50-5.40) 2.98 x10^6/uL (3.50-5.40) Hemoglobin 10.1 g/dL (12.0-15.5) 9.3 g/dL (12.0-15.5) Hematocrit 29.9 % (36.0-47.0) 27.2 % (36.0-47.0) Mean Corpuscular Volume 93 fL (79-100) 91 fL (79-100) Mean Corpuscular Hemoglobin 31 pg (25-35) 31 pg (25-35) Mean Corpuscular Hemoglobin Concent 34 g/dL (31-37) 34 g/dL (31-37) Red Cell Distribution Width 13.6 % (11.5-14.5) 13.6 % (11.5-14.5) Platelet Count 234 x10^3/uL (140-400) 217 x10^3/uL (140-400) Neutrophils (%) (Auto) 69 % (31-73) 59 % (31-73) Lymphocytes (%) (Auto) 19 % (24-48) 29 % (24-48) Monocytes (%) (Auto) 9 % (0-9) 9 % (0-9) Eosinophils (%) (Auto) 3 % (0-3) 3 % (0-3) Basophils (%) (Auto) 0 % (0-3) 0 % (0-3) Neutrophils # (Auto) 3.6 x10^3uL (1.8-7.7) 2.7 x10^3uL (1.8-7.7) Lymphocytes # (Auto) 1.0 x10^3/uL (1.0-4.8) 1.3 x10^3/uL (1.0-4.8) Monocytes # (Auto) 0.4 x10^3/uL (0.0-1.1) 0.4 x10^3/uL (0.0-1.1) Eosinophils # (Auto) 0.2 x10^3/uL (0.0-0.7) 0.1 x10^3/uL (0.0-0.7) Basophils # (Auto) 0.0 x10^3/uL (0.0-0.2) 0.0 x10^3/uL (0.0-0.2) Sodium Level 135 mmol/L (136-145) 138 mmol/L (136-145) Potassium Level 4.1 mmol/L (3.5-5.1) 4.4 mmol/L (3.5-5.1) Chloride Level 102 mmol/L (98-107) 108 mmol/L (98-107) Carbon Dioxide Level 22 mmol/L (21-32) 21 mmol/L (21-32) Anion Gap 11 (6-14) 9 (6-14) Blood Urea Nitrogen 47 mg/dL (7-20) 34 mg/dL (7-20) Creatinine 1.8 mg/dL (0.6-1.0) 1.5 mg/dL (0.6-1.0) Estimated GFR (Cockcroft-Gault) 27.4 33.8 BUN/Creatinine Ratio 26 (6-20) 23 (6-20) Glucose Level 87 mg/dL (70-99) 131 mg/dL (70-99) Calcium Level 8.3 mg/dL (8.5-10.1) 7.7 mg/dL (8.5-10.1) Total Bilirubin 0.1 mg/dL (0.2-1.0) 0.1 mg/dL (0.2-1.0) Aspartate Amino Transf (AST/SGOT) 21 U/L (15-37) 20 U/L (15-37) Alanine Aminotransferase (ALT/SGPT) 24 U/L (14-59) 21 U/L (14-59) Alkaline Phosphatase 81 U/L (46-116) 75 U/L (46-116) Creatine Kinase 232 U/L (26-192) Creatine Kinase MB (Mass) 3.7 ng/mL (0.0-3.6) Creatine Kinase MB Relative Index 1.6 % (0-4) Troponin I Quantitative < 0.017 ng/mL (0.000-0.055) NR-Pel-T-Type Natriuretic Peptide 170 pg/mL (0-449) Total Protein 7.1 g/dL (6.4-8.2) 6.5 g/dL (6.4-8.2) Albumin 2.9 g/dL (3.4-5.0) 2.6 g/dL (3.4-5.0) Albumin/Globulin Ratio 0.7 (1.0-1.7) 0.7 (1.0-1.7) Glucose (Fingerstick) 147 mg/dL (70-99) AKOSUA RESTREPO MD Aug 24, 2017 10:46
[2017-08-24] MEDS ORDERED: MAGNESIUM SULFATE 2GM 50 ML IV PRN (11:00)
[2017-08-24] MEDS ORDERED: DEXTROSE 50% 25 GM / 50ML DISP.SYRIN. IV PRN (12:30)
[2017-08-24 12:33] LABS: % SAT IRON 9 % (15-34); IRON,SERUM 24 ug/dL (50-170)
--- NOTE | 2017-08-24 12:40 | CONS ---
DATE OF CONSULTATION: PRIMARY PHYSICIAN: Dr. Mercado. REASON FOR CONSULTATION: Acute renal failure. HISTORY OF PRESENT ILLNESS: The patient is a 77-year-old female with possible underlying CKD. She is known to have baseline creatinine of about 1.3 in 2015. Fluid status at that time is not known. She does take some ibuprofen at home from time to time. She apparently was constipated until 3 days ago and had left-sided abdominal pain. She thereafter developed nausea and diarrhea and presented to the ER for further evaluation. In the ER, she was noted to have elevated creatinine of 1.8 and we were asked to see her for the same. She has family in the room that interprets for us. She did complain of right-sided, dull headache. She did not have vomiting, she only had some nausea. She denies any known kidney problems other than 1 episode of possible kidney stone. This is documented on her previous abdominal CT as reviewed. Flank pain resolved after diarrhea started, hence again suspectedly be attributed to her underlying constipation. Her creatinine is now down to 1.5 after IV fluids. She is feeling well. UA is not available just yet. PAST MEDICAL HISTORY: Significant for: 1. Long-standing diabetes, hyperlipidemia. 2. Hypertension. 3. History of kidney stone. 4. Thyroid disease. 5. Throat surgery. 6. Right lumpectomy. 7. She has had a section in the past also. FAMILY HISTORY: Negative for known kidney issues. SOCIAL HISTORY: Nonsmoker, nondrinker, currently , lives with her . Rest details in electronic records. AKOSUA RESTREPO MD DR: KRISTOFER/erika JOB#: [id number] / [id number]
[2017-08-24] MEDS: INSULIN ASPART 300 UNITS/3 ML INSULN.PEN SQ SCH ×2 (12:45→17:00)
[2017-08-24] MEDS ORDERED: ENOXAPARIN 40 MG/0.4 ML SYRINGE. SQ SCH (13:00)
--- NOTE | 2017-08-24 13:04 | RAD ---
Renal ultrasound 08/24/2017 Indication: Acute renal injury Comparison study: CT of the abdomen and pelvis without contrast August 22, 2015 Discussion: Ultrasound evaluation of the kidneys was performed. Static images were submitted to PACS. Right kidney measures 10.7 cm in length. No hydronephrosis is seen on the right. There is no focal renal lesion on the right. Left kidney measures 10.4 cm in length. There is no evidence of hydronephrosis on the left. No focal renal lesion is seen on the left. No evidence of nephrolithiasis is identified. The bladder is nonvisualized, and likely empty. Impression: Unremarkable sonographic appearance of the kidneys.
[2017-08-24] MEDS ORDERED: BENA40TA2 PO (13:05)
[2017-08-24] MEDS ORDERED: SIMV40TA3 PO (13:05)
[2017-08-24] MEDS ORDERED: GLIM4TAB2 PO (13:05)
[2017-08-24] MEDS ORDERED: LEVO112T2 PO (13:05)
[2017-08-24] MEDS: IV NORMAL SALINE 1000ML BAG 1,000 ML IV SCH ×2 (20:19→23:20)
[2017-08-25 03:08] VITALS: BP 107/53
[2017-08-25 05:37] LABS: BILIRUBIN,URINE NEGATIVE (NEG); GLUCOSE,URINE NEGATIVE (NEG); NITRITE,URINE NEGATIVE (NEG); PH,URINE 5.5; PROTEIN,URINE NEGATIVE (NEG-TRACE); UROBILINOGEN,URINE 0.2 mg/dL (0.2 mg/dL)
[2017-08-25 05:59] LABS: RBC,URINE 0 /HPF (0-2); SQUAMOUS EPITHELIAL CELL,UR FEW /LPF; WBC,URINE 0 /HPF (0-4)
[2017-08-25 06:00] LABS: BACTERIA,URINE FEW /HPF (0-FEW)
[2017-08-25] MEDS ORDERED: ONDANSETRON PF 4 MG/2 ML VIAL. IV PRN (06:00)
[2017-08-25 07:00] VITALS: BP 119/56
[2017-08-25 07:22] LABS: ALBUMIN 2.6 g/dL (3.4-5.0); CALCIUM 8.3 mg/dL (8.5-10.1); CREATININE 1.2 mg/dL (0.6-1.0); GFR 43.7; PHOSPHORUS 2.6 mg/dL (2.6-4.7); POTASSIUM 4.2 mmol/L (3.5-5.1)
[2017-08-25] MEDS: INSULN ASP PRT/INSULIN ASPART 300 UNITS/3 ML INSULN.PEN. SQ SCH (08:34)
[2017-08-25] MEDS: INSULIN ASPART 300 UNITS/3 ML INSULN.PEN SQ SCH ×2 (08:35→12:00)
[2017-08-25 10:48] VITALS: BP 124/66
--- NOTE | 2017-08-25 11:34 | PDOC ---
SUBJECTIVE ROS ALEENA/ CKD III Doign and feeling much better CVS: no Orthopnea, no CP RESP: no SOB, no JEAN GI: no Nausea, no Vomiting : no Dysuria, no Urgency OBJECTIVE Vital Signs Vital Signs Date Time Temp Pulse Resp B/P (MAP) Pulse Ox O2 Delivery O2 Flow Rate FiO2 08/25/17 10:48 98.0 70 18 124/66 (85) 98 Room Air 98.0 I & 0 Intake and Output 08/26/17 07:00 Intake Total 300 ml Balance 300 ml Intake Oral 300 ml PHYSICAL EXAM Physical Exam General Appearance: Awake Alert Oriented x 3 In no Distress Eyes: VIsion Unchanged Conjunctiva Normal EN: No EN Drainage Mucous Memb. moist Neck: no JVD no JVP Supple no Thyromegaly CVS: S1 S2 no Murmur No Gallop No Rub no Edema Resp: no Rales no Rhonchi no Acc. Muscle use GI: BAS +ve NO Bruit Non Tender Non Distended : no CVA tenderness; no Suprapubic Tenderness Assessment & Plan ALEENA - VMn due to diarrhea and NSAID use as home: now better/ resolved CKD III underlying due to Dm etc cannot be ruled out. Current FLuid and E-lyte status does not necessitate emergent need for Dialysis. Will re-evaluate for Dialysis in am Vol depletion - Better with IVF - now asymptomatic - watch off of IVF Fe Def Anemia: offerred pt IV Iron - she prefers PO for now HTN: Current BP meds reviewed. See orders for changes. Low keya John - corrects for low abl Low Alb - UA -ve for proteinuria Discussed Plan of Care and prognosis etc. at length with family. - will be available prn -pl call COMMENT/RELEVANT DATA Meds Current Medications Medications (Trade) Dose Ordered Sig/Tacho Start Time Stop Time Status Last Admin Dose Admin Dextrose (Dextrose 50%-Water Syringe) 12.5 gm PRN Q15MIN PRN 08/24/17 12:30 Enoxaparin Sodium (Lovenox 40mg Syringe) 40 mg Q24H 08/24/17 13:00 Enoxaparin Sodium (Lovenox Per Pharmacy Prophylaxis Dosing) 1 each PRN DAILY PRN 08/24/17 12:00 Insulin Aspart (NovoLOG) 0-7 UNITS TIDWMEALS 08/24/17 12:45 08/25/17 08:35 4 UNITS Insulin Aspart Prota 70%/Aspart 30% (Novolog Mix 70-30) 25 units DAILYWBKFT 08/24/17 09:30 08/25/17 08:34 25 UNITS Magnesium Sulfate/ Dextrose 50 ml @ 25 mls/hr PRN DAILY PRN 08/24/17 11:00 Ondansetron HCl (Zofran) 4 mg PRN Q6HRS PRN 08/25/17 06:00 08/25/17 05:57 4 MG Pneumococcal Polyvalent Vaccine (Do NOT chart on this placeholder) 1 each 1X ONCE 08/24/17 02:00 08/24/17 02:01 UNV Pneumococcal Polyvalent Vaccine (Pneumovax 23) 0.5 ml ONCE ONCE 08/24/17 09:00 08/24/17 09:01 DC Sodium Chloride 1,000 ml @ 75 mls/hr [id number] 08/24/17 10:00 08/24/17 20:19 75 MLS/HR Lab Laboratory Tests Test 08/24/17 11:44 08/24/17 16:51 08/24/17 19:28 08/25/17 05:29 Glucose (Fingerstick) 127 mg/dL (70-99) 133 mg/dL (70-99) 149 mg/dL (70-99) Urine Collection Type Unknown Urine Color Yellow Urine Clarity Clear Urine pH 5.5 Urine Specific [place] 1.010 Urine Protein Negative mg/dL (NEG-TRACE) Urine Glucose (UA) Negative mg/dL (NEG) Urine Ketones (Stick) Negative mg/dL (NEG) Urine Blood Negative (NEG) Urine Nitrite Negative (NEG) Urine Bilirubin Negative (NEG) Urine Urobilinogen Dipstick 0.2 mg/dL (0.2 mg/dL) Urine Leukocyte Esterase Negative (NEG) Urine RBC 0 /HPF (0-2) Urine WBC 0 /HPF (0-4) Urine Squamous Epithelial Cells Few /LPF Urine Bacteria Few /HPF (0-FEW) Test 08/25/17 06:13 08/25/17 07:17 Hemoglobin 9.8 g/dL (12.0-15.5) Sodium Level 140 mmol/L (136-145) Potassium Level 4.2 mmol/L (3.5-5.1) Chloride Level 110 mmol/L (98-107) Carbon Dioxide Level 21 mmol/L (21-32) Anion Gap 9 (6-14) Blood Urea Nitrogen 19 mg/dL (7-20) Creatinine 1.2 mg/dL (0.6-1.0) Estimated GFR (Cockcroft-Gault) 43.7 Glucose Level 144 mg/dL (70-99) Calcium Level 8.3 mg/dL (8.5-10.1) Phosphorus Level 2.6 mg/dL (2.6-4.7) Magnesium Level 2.1 mg/dL (1.8-2.4) Albumin 2.6 g/dL (3.4-5.0) Glucose (Fingerstick) 211 mg/dL (70-99) AKOSUA RESTREPO MD Aug 25, 2017 11:34
[2017-08-25 13:22] LABS: UR PROTEIN RD 5.9 mg/dL (Not Estab.)
[2017-08-25] MEDS ORDERED: FERROUS SULFATE 325 MG TABLET. PO SCH (14:00)
--- NOTE | 2017-08-25 14:49 | PDOC3 ---
Discharge Summary Visit Information Date of Admission: Aug 24, 2017 Date of Discharge: Aug 25, 2017 Admitting Diagnosis: nausea and vomiting Final Diagnosis diarrhea acute viral illness, viral enteritis, acute acute renal failure, vasomotor nephropathy, dry with hyponatremia weakness and debility acute mild.moderate malnutrition, hypoalbumin from acute illness Dm2, insulin, poor control Problems Medical Problems: (1) Dehydration Status: Acute (2) Diabetes Status: Acute (3) Nausea vomiting and diarrhea Status: Acute Brief Hospital Course Allergies Allergies Coded Allergies Type Severity Reaction Last Updated Verified No Known Drug Allergies 04/11/15 No Vital Signs Vital Signs Date Time Temp Pulse Resp B/P (MAP) Pulse Ox O2 Delivery O2 Flow Rate FiO2 08/25/17 10:48 98.0 70 18 124/66 (85) 98 Room Air 98.0 Lab Results Laboratory Tests Test 08/23/17 22:19 08/24/17 08:52 08/24/17 09:30 08/24/17 10:02 White Blood Count 5.2 x10^3/uL (4.0-11.0) 4.6 x10^3/uL (4.0-11.0) Red Blood Count 3.22 x10^6/uL (3.50-5.40) 2.98 x10^6/uL (3.50-5.40) Hemoglobin 10.1 g/dL (12.0-15.5) 9.3 g/dL (12.0-15.5) Hematocrit 29.9 % (36.0-47.0) 27.2 % (36.0-47.0) Mean Corpuscular Volume 93 fL (79-100) 91 fL (79-100) Mean Corpuscular Hemoglobin 31 pg (25-35) 31 pg (25-35) Mean Corpuscular Hemoglobin Concent 34 g/dL (31-37) 34 g/dL (31-37) Red Cell Distribution Width 13.6 % (11.5-14.5) 13.6 % (11.5-14.5) Platelet Count 234 x10^3/uL (140-400) 217 x10^3/uL (140-400) Neutrophils (%) (Auto) 69 % (31-73) 59 % (31-73) Lymphocytes (%) (Auto) 19 % (24-48) 29 % (24-48) Monocytes (%) (Auto) 9 % (0-9) 9 % (0-9) Eosinophils (%) (Auto) 3 % (0-3) 3 % (0-3) Basophils (%) (Auto) 0 % (0-3) 0 % (0-3) Neutrophils # (Auto) 3.6 x10^3uL (1.8-7.7) 2.7 x10^3uL (1.8-7.7) Lymphocytes # (Auto) 1.0 x10^3/uL (1.0-4.8) 1.3 x10^3/uL (1.0-4.8) Monocytes # (Auto) 0.4 x10^3/uL (0.0-1.1) 0.4 x10^3/uL (0.0-1.1) Eosinophils # (Auto) 0.2 x10^3/uL (0.0-0.7) 0.1 x10^3/uL (0.0-0.7) Basophils # (Auto) 0.0 x10^3/uL (0.0-0.2) 0.0 x10^3/uL (0.0-0.2) Sodium Level 135 mmol/L (136-145) 138 mmol/L (136-145) Potassium Level 4.1 mmol/L (3.5-5.1) 4.4 mmol/L (3.5-5.1) Chloride Level 102 mmol/L (98-107) 108 mmol/L (98-107) Carbon Dioxide Level 22 mmol/L (21-32) 21 mmol/L (21-32) Anion Gap 11 (6-14) 9 (6-14) Blood Urea Nitrogen 47 mg/dL (7-20) 34 mg/dL (7-20) Creatinine 1.8 mg/dL (0.6-1.0) 1.5 mg/dL (0.6-1.0) Estimated GFR (Cockcroft-Gault) 27.4 33.8 BUN/Creatinine Ratio 26 (6-20) 23 (6-20) Glucose Level 87 mg/dL (70-99) 131 mg/dL (70-99) Calcium Level 8.3 mg/dL (8.5-10.1) 7.7 mg/dL (8.5-10.1) Total Bilirubin 0.1 mg/dL (0.2-1.0) 0.1 mg/dL (0.2-1.0) Aspartate Amino Transf (AST/SGOT) 21 U/L (15-37) 20 U/L (15-37) Alanine Aminotransferase (ALT/SGPT) 24 U/L (14-59) 21 U/L (14-59) Alkaline Phosphatase 81 U/L (46-116) 75 U/L (46-116) Creatine Kinase 232 U/L (26-192) Creatine Kinase MB (Mass) 3.7 ng/mL (0.0-3.6) Creatine Kinase MB Relative Index 1.6 % (0-4) Troponin I Quantitative < 0.017 ng/mL (0.000-0.055) TQ-Gdg-D-Type Natriuretic Peptide 170 pg/mL (0-449) Total Protein 7.1 g/dL (6.4-8.2) 6.5 g/dL (6.4-8.2) Albumin 2.9 g/dL (3.4-5.0) 2.6 g/dL (3.4-5.0) Albumin/Globulin Ratio 0.7 (1.0-1.7) 0.7 (1.0-1.7) Clostridium difficile Toxin (PCR) Negative (Negative) Reticulocyte Count (auto) 0.8 % (0.5-2.5) Iron Level 24 ug/dL (50-170) Total Iron Binding Capacity 269 ug/dL (250-450) Iron Saturation 9 % (15-34) Ferritin 29 ng/mL (8-252) Glucose (Fingerstick) 147 mg/dL (70-99) Test 08/24/17 11:44 08/24/17 16:51 08/24/17 19:28 08/25/17 05:29 Glucose (Fingerstick) 127 mg/dL (70-99) 133 mg/dL (70-99) 149 mg/dL (70-99) Urine Collection Type Unknown Urine Color Yellow Urine Clarity Clear Urine pH 5.5 Urine Specific [place] 1.010 Urine Protein 5.9 mg/dL (Not Estab.) Urine Glucose (UA) Negative mg/dL (NEG) Urine Ketones (Stick) Negative mg/dL (NEG) Urine Blood Negative (NEG) Urine Nitrite Negative (NEG) Urine Bilirubin Negative (NEG) Urine Urobilinogen Dipstick 0.2 mg/dL (0.2 mg/dL) Urine Leukocyte Esterase Negative (NEG) Urine RBC 0 /HPF (0-2) Urine WBC 0 /HPF (0-4) Urine Squamous Epithelial Cells Few /LPF Urine Bacteria Few /HPF (0-FEW) Urine Creatinine 52.8 mg/dL (Not Estab.) Urine Protein/Creatinine Ratio 112 mg/g creat (0-200) Test 08/25/17 06:13 08/25/17 07:17 08/25/17 11:35 08/25/17 11:41 Hemoglobin 9.8 g/dL (12.0-15.5) Sodium Level 140 mmol/L (136-145) Potassium Level 4.2 mmol/L (3.5-5.1) Chloride Level 110 mmol/L (98-107) Carbon Dioxide Level 21 mmol/L (21-32) Anion Gap 9 (6-14) Blood Urea Nitrogen 19 mg/dL (7-20) Creatinine 1.2 mg/dL (0.6-1.0) Estimated GFR (Cockcroft-Gault) 43.7 Glucose Level 144 mg/dL (70-99) Calcium Level 8.3 mg/dL (8.5-10.1) Phosphorus Level 2.6 mg/dL (2.6-4.7) Magnesium Level 2.1 mg/dL (1.8-2.4) Albumin 2.6 g/dL (3.4-5.0) Glucose (Fingerstick) 211 mg/dL (70-99) 42 mg/dL (70-99) 41 mg/dL (70-99) Test 08/25/17 11:46 08/25/17 11:52 08/25/17 12:04 Glucose (Fingerstick) 44 mg/dL (70-99) 58 mg/dL (70-99) 70 mg/dL (70-99) Laboratory Tests Test 08/24/17 16:51 08/24/17 19:28 08/25/17 05:29 08/25/17 06:13 Glucose (Fingerstick) 133 mg/dL (70-99) 149 mg/dL (70-99) Urine Collection Type Unknown Urine Color Yellow Urine Clarity Clear Urine pH 5.5 Urine Specific [place] 1.010 Urine Protein 5.9 mg/dL (Not Estab.) Urine Glucose (UA) Negative mg/dL (NEG) Urine Ketones (Stick) Negative mg/dL (NEG) Urine Blood Negative (NEG) Urine Nitrite Negative (NEG) Urine Bilirubin Negative (NEG) Urine Urobilinogen Dipstick 0.2 mg/dL (0.2 mg/dL) Urine Leukocyte Esterase Negative (NEG) Urine RBC 0 /HPF (0-2) Urine WBC 0 /HPF (0-4) Urine Squamous Epithelial Cells Few /LPF Urine Bacteria Few /HPF (0-FEW) Urine Creatinine 52.8 mg/dL (Not Estab.) Urine Protein/Creatinine Ratio 112 mg/g creat (0-200) Hemoglobin 9.8 g/dL (12.0-15.5) Sodium Level 140 mmol/L (136-145) Potassium Level 4.2 mmol/L (3.5-5.1) Chloride Level 110 mmol/L (98-107) Carbon Dioxide Level 21 mmol/L (21-32) Anion Gap 9 (6-14) Blood Urea Nitrogen 19 mg/dL (7-20) Creatinine 1.2 mg/dL (0.6-1.0) Estimated GFR (Cockcroft-Gault) 43.7 Glucose Level 144 mg/dL (70-99) Calcium Level 8.3 mg/dL (8.5-10.1) Phosphorus Level 2.6 mg/dL (2.6-4.7) Magnesium Level 2.1 mg/dL (1.8-2.4) Albumin 2.6 g/dL (3.4-5.0) Test 08/25/17 07:17 08/25/17 11:35 08/25/17 11:41 08/25/17 11:46 Glucose (Fingerstick) 211 mg/dL (70-99) 42 mg/dL (70-99) 41 mg/dL (70-99) 44 mg/dL (70-99) Test 08/25/17 11:52 08/25/17 12:04 Glucose (Fingerstick) 58 mg/dL (70-99) 70 mg/dL (70-99) Brief Hospital Course Ms. Gao is a 77 old admit dehydrated from nausea and vomiting and diarrhea. Acute viral, better in 24 hours with support DC home Discharge Information Condition at Discharge: Improved Follow Up: Weeks Disposition/Orders: D/C to Home Scheduled Benazepril Hcl (Benazepril Hcl), 40 MG PO DAILY, (Reported) Glimepiride (Glimepiride), 1 TAB PO BID, (Reported) Hum Insulin Nph/Reg Insulin Hm (Relion Novolin 70-30 Vial), 25 UNIT SQ [id number], (Reported) Levothyroxine Sodium (Synthroid), 1 TAB PO DAILY, (Reported) Simvastatin (Simvastatin), 1 TAB PO QHS, (Reported) Patient Instructions Patient Instructions > 30 min face to face f.u Dr. Valladares forlabs one week VALENCIA OWENS MD Aug 25, 2017 14:49
== END 2017-08-25 13:54 | disposition home or self-care (01) | DRG 391 ==
LOC: ER 21:48 → 6 SOUTH 23:00
PROVIDERS: ADMIT Internal Medicine; ATTEND Internal Medicine
DX: A08.4 Viral intestinal infection, unspecified (principal); N17.0 Acute kidney failure with tubular necrosis; E44.0 Moderate protein-calorie malnutrition; E87.1 Hypo-osmolality and hyponatremia; E11.22 Type 2 diabetes mellitus with diabetic chronic kidney disease; E78.00 Pure hypercholesterolemia, unspecified; E78.5 Hyperlipidemia, unspecified; E86.0 Dehydration; G89.29 Other chronic pain; I12.9 Hypertensive chronic kidney disease with stage 1 through stage 4 chronic kidney disease, or unspecified chronic kidney disease; N18.3 Chronic kidney disease, stage 3 (moderate); Z83.3 Family history of diabetes mellitus; Z87.442 Personal history of urinary calculi; Z68.28 Body mass index [BMI] 28.0-28.9, adult; D64.9 Anemia, unspecified; Z79.4 Long term (current) use of insulin
CPT/HCPCS: 36415; 70450; 71010; 76770; 80053; 80069; 81001; 82553; 82570; 82728; 82962; 83540; 83550; 83735; 83880; 84156; 84484; 85018; 85025; 85045; 87324; 93005; 96374; J1815; J2405; J7030; 99285-25

== ENCOUNTER 2017-10-28 01:13 | Emergency (ER) | payer OTHER, MEDICAID ==
[~2017-10-28] VITALS: Ht 160 cm; Wt 73.9 kg
[~2017-10-28 01:13] MED LIST: BENA40TA2 PO; GLIM4TAB2 PO; HUM100VI4 SQ; LEVO112T2 PO; SIMV40TA3 PO
[2017-10-28 01:35] LABS: BASO % 0 % (0-3); EOS % 4 % (0-3); HEMATOCRIT 31.6 % (36.0-47.0); HEMOGLOBIN 10.3 g/dL (12.0-15.5); LYMPH # 2.3 x10^3/uL (1.0-4.8); LYMPH % 28 % (24-48); MEAN CORPUSCULAR HEMOGLOBIN 31 pg (25-35); MEAN CORPUSCULAR HGB CONC 33 g/dL (31-37); MEAN CORPUSCULAR VOLUME 94 fL (79-100); MONO % 7 % (0-9); NEUT % 61 % (31-73); PLATELET COUNT 270 x10^3/uL (140-400); RED BLOOD COUNT 3.36 x10^6/uL (3.50-5.40); RED CELL DISTRIBUTION WIDTH 14.8 % (11.5-14.5); WHITE BLOOD COUNT 8.4 x10^3/uL (4.0-11.0)
[2017-10-28 01:47] LABS: CALCIUM 8.2 mg/dL (8.5-10.1); CREATININE 1.4 mg/dL (0.6-1.0); GFR 36.6; POTASSIUM 4.4 mmol/L (3.5-5.1)
[2017-10-28 01:54] LABS: ALBUMIN 3.4 g/dL (3.4-5.0); ALBUMIN/GLOBULIN RATIO 0.9 (1.0-1.7); TOTAL BILIRUBIN 0.2 mg/dL (0.2-1.0); TOTAL PROTEIN 7.3 g/dL (6.4-8.2)
--- NOTE | 2017-10-28 02:45 | PHYS DOC ---
Past Medical History Past Medical History: Diabetes-Type II, High Cholesterol, Hypertension, Kidney Stone Additional Past Medical Histor: Thyroid Past Surgical History: Other Additional Past Surgical Histo: throat sx, tumor removed from R breast; kidney stone removal Alcohol Use: None Drug Use: None Adult General Chief Complaint Chief Complaint: HYPOGLYCEMIA HPI HPI Patient is a 77 year old who was awakened by a phone call of someone looking for a dog. this upset her greatly. she has a hx of anxiety and couldn't calm down per family. she continued to worry then got clammy. her blood sugar was 66. ems found same and gave her something to eat. however, family wanted her checked out. she has not been ill recently, no trauma, no new meds. she had no complaints yesterday. she is calmer now and sx have resolved Review of Systems Review of Systems Constitutional: Denies fever or chills [] Eyes: Denies change in visual acuity, redness, or eye pain [] HENT: Denies nasal congestion or sore throat [] Respiratory: Denies cough or shortness of breath [] Cardiovascular: No additional information not addressed in HPI [] GI: Denies abdominal pain, nausea, vomiting, bloody stools or diarrhea [] : Denies dysuria or hematuria [] Musculoskeletal: Denies back pain or joint pain [] Integument: Denies rash or skin lesions [] Neurologic: Denies headache, focal weakness or sensory changes , shaky and arms and legs tingly Endocrine: Denies polyuria or polydipsia [] All other systems were reviewed and found to be within normal limits, except as documented in this note. Current Medications Current Medications Current Medications Medications (Trade) Dose Ordered Sig/Tacho Start Time Stop Time Status Last Admin Dose Admin Ondansetron HCl (Zofran Odt) 4 mg 1X ONCE 10/28/17 03:45 10/28/17 03:45 DC 10/28/17 02:18 4 MG Allergies Allergies Allergies Coded Allergies Type Severity Reaction Last Updated Verified No Known Drug Allergies 04/11/15 No Physical Exam Physical Exam Constitutional: Well developed, well nourished, no acute distress, non-toxic appearance. [] HENT: Normocephalic, atraumatic, bilateral external ears normal, oropharynx moist, no oral exudates, nose normal. [] Eyes: PERRLA, EOMI, conjunctiva normal, no discharge. [] Neck: Normal range of motion, no tenderness, supple, no stridor. [] Cardiovascular:Heart rate regular rhythm, no murmur [] Lungs & Thorax: Bilateral breath sounds clear to auscultation [] Abdomen: Bowel sounds normal, soft, no tenderness, no masses, no pulsatile masses. [] Skin: Warm, dry, no erythema, no rash. [] Back: No tenderness, no CVA tenderness. [] Extremities: No tenderness, no cyanosis, no clubbing, ROM intact, no edema. [] Neurologic: Alert and oriented X 3, normal motor function, normal sensory function, no focal deficits noted. [] Psychologic: Affect normal, judgement normal, mood normal. [] Current Patient Data Vital Signs Vital Signs Date Time Temp Pulse Resp B/P (MAP) Pulse Ox O2 Delivery O2 Flow Rate FiO2 10/28/17 03:10 68 18 175/77 (109) 99 Room Air 10/28/17 01:32 97.6 97.6 Lab Values Laboratory Tests Test 10/28/17 01:27 White Blood Count 8.4 x10^3/uL (4.0-11.0) Red Blood Count 3.36 x10^6/uL (3.50-5.40) L Hemoglobin 10.3 g/dL (12.0-15.5) L Hematocrit 31.6 % (36.0-47.0) L Mean Corpuscular Volume 94 fL (79-100) Mean Corpuscular Hemoglobin 31 pg (25-35) Mean Corpuscular Hemoglobin Concent 33 g/dL (31-37) Red Cell Distribution Width 14.8 % (11.5-14.5) H Platelet Count 270 x10^3/uL (140-400) Neutrophils (%) (Auto) 61 % (31-73) Lymphocytes (%) (Auto) 28 % (24-48) Monocytes (%) (Auto) 7 % (0-9) Eosinophils (%) (Auto) 4 % (0-3) H Basophils (%) (Auto) 0 % (0-3) Neutrophils # (Auto) 5.1 x10^3uL (1.8-7.7) Lymphocytes # (Auto) 2.3 x10^3/uL (1.0-4.8) Monocytes # (Auto) 0.6 x10^3/uL (0.0-1.1) Eosinophils # (Auto) 0.3 x10^3/uL (0.0-0.7) Basophils # (Auto) 0.0 x10^3/uL (0.0-0.2) Sodium Level 134 mmol/L (136-145) L Potassium Level 4.4 mmol/L (3.5-5.1) Chloride Level 98 mmol/L (98-107) Carbon Dioxide Level 25 mmol/L (21-32) Anion Gap 11 (6-14) Blood Urea Nitrogen 28 mg/dL (7-20) H Creatinine 1.4 mg/dL (0.6-1.0) H Estimated GFR (Cockcroft-Gault) 36.6 BUN/Creatinine Ratio 20 (6-20) Glucose Level 197 mg/dL (70-99) H Calcium Level 8.2 mg/dL (8.5-10.1) L Total Bilirubin 0.2 mg/dL (0.2-1.0) Aspartate Amino Transferase (AST) 26 U/L (15-37) Alanine Aminotransferase (ALT) 19 U/L (14-59) Alkaline Phosphatase 82 U/L (46-116) Troponin I Quantitative < 0.017 ng/mL (0.000-0.055) Total Protein 7.3 g/dL (6.4-8.2) Albumin 3.4 g/dL (3.4-5.0) Albumin/Globulin Ratio 0.9 (1.0-1.7) L Laboratory Tests 10/28/17 01:27 Laboratory Tests 10/28/17 01:27 EKG EKG time 2346 HR 74 deep t wave inversions that are old changes, no new changes[] Radiology/Procedures Radiology/Procedures [] Course & Med Decision Making Course & Med Decision Making Pertinent Labs and Imaging studies reviewed. (See chart for details) []currently she is asymptomatic with unremarkable labs. family states she has anxiety hx and this has happened before. they would like to take her home and will return if sx worsen Dragon Disclaimer Dragon Disclaimer This electronic medical record was generated, in whole or in part, using a voice recognition dictation system. Departure Departure Impression: Primary Impression: Anxiety Disposition: HOME, SELF-CARE Condition: GOOD Referrals: MAXIMILIAN MEDINA MD (PCP) Patient Instructions: Anxiety and Panic Attacks, [id number] Additional Instructions: monitor blood sugar closely. return if any concerns. discuss potential anxiety meds with your doctor LORRIE ZAMORA MD Oct 28, 2017 02:44
[2017-10-28 03:10] VITALS: BP 175/77
[2017-10-28] MEDS ORDERED: ONDANSETRON ODT 4 MG TAB.RAPDIS. PO ONE (03:45)
== END 2017-10-28 03:10 | disposition home or self-care (01) ==
LOC: ER 01:13
DX: F41.9 Anxiety disorder, unspecified (principal); E11.649 Type 2 diabetes mellitus with hypoglycemia without coma; I10 Essential (primary) hypertension; E78.00 Pure hypercholesterolemia, unspecified; Z87.442 Personal history of urinary calculi
CPT/HCPCS: 36415; 80053; 84484; 85025; 99284; Q0162

== ENCOUNTER → 2018-08-22 | Outpatient (CLI) | payer OTHER, MEDICAID ==
[~2018-08-22] MED LIST changes: -BENA40TA2 PO; +BENA40TA3 PO
--- NOTE | 2018-08-22 13:45 | KCIC ---
EXAM: Dual energy x-ray absorptiometry (DEXA). HISTORY: Postmenopausal female presents for osteoporosis screening. COMPARISON: None. TECHNIQUE: Dual energy x-ray absorptiometry of the lumbar spine and left hip was performed. Calculation of bone mineral density based on standard deviations above or below the expected young adult normal value (T-score) was completed. FINDINGS: The average bone mineral density in the 1st through 4th lumbar vertebrae is 0.939 g/cmxcm, corresponding with a T-score of -1.0. The average total bone mineral density in the left is 0.712 g/cmxcm, corresponding with a T-score of -1.9. IMPRESSION: 1. Osteopenia measured at the left hip. 2. Borderline osteopenia measured at the lumbar spine. Note: Definitions established by the World Health Organization: 1. Normal: T-score is -1.0 or above. 2. Osteopenia: T-score is between -1.0 and -2.5 . 3. Osteoporosis: T-score is -2.5 or below. Electronically signed by: Fay Hi MD (08/22/2018 1:41 PM) [place] [id number]
--- NOTE | 2018-08-22 14:21 | KCIC ---
Bilateral digital screening mammograms: Reason for examination: Routine screening. History of right breast cancer with lumpectomy and radiation therapy. Comparison is made to previous studies dated 06/28/2017 and 06/26/2016. Interpretation was made with the benefit of CAD. The skin and nipples show no abnormalities. No abnormal axillary lymph nodes are seen. The breast parenchyma shows scattered fibroglandular density. (Breast density: Category B.) There are postop changes in the right breast. There are no new dominant masses, suspicious calcifications or architectural distortions. Some benign calcifications are present. Impression: Postoperative changes in the right breast. No evidence of new or recurrent malignancy. Recommend routine screening. BI-RADS category 2: Benign "Our facility is accredited by the [employer] Mammography [employer]." This patient's information has been entered into a reminder system for the patient to be notified with the results of her examination and a target date for the next mammogram. Electronically signed by: Gisela Valencia MD (08/22/2018 2:18 PM) [id number]
== END | disposition home or self-care (01) ==
LOC: KCIC DEXA 12:07
PROVIDERS: ATTEND Family Medicine
DX: Z12.31 Encounter for screening mammogram for malignant neoplasm of breast (principal); Z13.820 Encounter for screening for osteoporosis; M85.88 Other specified disorders of bone density and structure, other site; Z98.890 Other specified postprocedural states; Z85.3 Personal history of malignant neoplasm of breast
CPT/HCPCS: 77067; 77080

== ENCOUNTER → 2019-03-09 | Day surgery (SDC) | payer OTHER, MEDICAID ==
[~2019-03-09] MED LIST changes: +ALPR0.25 PO; +ATOR40TA59 PO; +FURO-69 PO; +INSU100C4 SQ; +INSU100V37 SQ; +IV RINGERS,LACTATED 1000ML 1,000 ML IV SCH; +LEVO112T4 PO; +LIDOCAINE 2% PF 5 ML VIAL. ONE; +PROPOFOL 20 ML IV ONE; +PROPOFOL 40 ML IV ONE
[2019-03-09 11:37] VITALS: BP 144/57
== END | disposition home or self-care (01) ==
LOC: ENDOS 09:14
PROVIDERS: ATTEND Internal Medicine Gastroenterology
DX: K63.5 Polyp of colon (principal); K57.30 Diverticulosis of large intestine without perforation or abscess without bleeding; K64.0 First degree hemorrhoids; K21.0 Gastro-esophageal reflux disease with esophagitis; K44.9 Diaphragmatic hernia without obstruction or gangrene; K31.7 Polyp of stomach and duodenum; K31.89 Other diseases of stomach and duodenum; D49.0 Neoplasm of unspecified behavior of digestive system; F41.9 Anxiety disorder, unspecified; M19.90 Unspecified osteoarthritis, unspecified site; F32.9 Major depressive disorder, single episode, unspecified; E11.9 Type 2 diabetes mellitus without complications; E78.00 Pure hypercholesterolemia, unspecified; Z85.3 Personal history of malignant neoplasm of breast; Z83.3 Family history of diabetes mellitus; Z79.899 Other long term (current) drug therapy; Z79.84 Long term (current) use of oral hypoglycemic drugs
CPT/HCPCS: 43239; 45380; 82962; 88305; 88342; J2001; J2704

== ENCOUNTER → 2019-04-12 | Outpatient (CLI) | payer OTHER, MEDICAID ==
[2019-03-09 11:37] VITALS: BP 144/57
[~2019-04-12] MED LIST changes: +IOHEXOL 300 MG/ML 100ML VIAL. IV ONE; -IV RINGERS,LACTATED 1000ML 1,000 ML IV SCH; -LIDOCAINE 2% PF 5 ML VIAL. ONE; -PROPOFOL 20 ML IV ONE; -PROPOFOL 40 ML IV ONE
[2019-04-12 08:21] LABS: CREATININE 1.3 mg/dL (0.6-1.0); GFR 39.7
--- NOTE | 2019-04-12 15:30 | RAD ---
EXAM: CT ABDOMEN/PELVIS WITH CONTRAST. HISTORY: Gastric mass. Colonic mass. TECHNIQUE: Computed tomography of the abdomen and pelvis was performed after the intravenous administration of iodinated contrast using an enterography protocol. COMPARISON: 08/22/2015. FINDINGS: Lung windows through the visualized portions of the bases reveal mild atelectasis. Bone windows reveal no suspicious lesions. A moderate superior plate compression fracture at L1 appears chronic. The gallbladder is surgically absent. The liver, spleen and adrenal glands are unremarkable. A hypoattenuating lesion medially in the right kidney measures 45 Hounsfield units and 1.8 cm. This was not well seen on the prior study and is indeterminate. Another tiny cyst is noted at the left renal upper pole. The right kidney is unremarkable. The common duct measures 1.2 cm. The pancreatic duct is not dilated. There are no pancreatic parenchymal lesions. There are no pathologically enlarged lymph nodes. There are changes of pelvic floor relaxation with a small cystocele. A low signal mass in the pelvis may arise from the right ovary but this is unclear. It is bilobed, and measures 3.5 x 4.9 cm. No soft tissue component is identified. There is no clear interval change. Rim calcifications are stable. The distal esophagus is unremarkable. A polypoid hyperenhancing mass along the greater curvature of the gastric antrum measures approximately 2.7 x 1.4 cm. See axial image 67 and coronal image 30. No extension beyond the stomach is identified. There are multiple diverticula along the proximal duodenum. One along the third/fourth portion measures 4.9 cm. No small bowel masses are identified. There are no clear strictures or wall thickening. No colonic mass is identified by CT. The appendix is not inflamed. IMPRESSION: 1. 2.7 cm endophytic polypoid mass along the gastric antrum. Endoscopy is recommended for further evaluation. No extension beyond the stomach. 2. No clear colonic mass is identified by CT. Correlate for the site of concern. 3. A 4.9 x 3.5 fat signal mass in the pelvis has been stable chronically. This may be a teratoma associated with the right ovary, or the sequela of chronic fat necrosis. 4. A 1.8 cm lesion medially in the right kidney is indeterminate. Sonography could further differentiate cystic from solid lesions. 5. Pelvic floor relaxation with a cystocele. 6. Mild extrahepatic biliary dilatation status post cholecystectomy. Correlate for cholestasis to assess significance. *One or more of the following individualized dose reduction techniques were utilized for this examination: 1. Automated exposure control. 2. Adjustment of the mA and/or kV according to patient size. 3. Use of iterative reconstruction technique. Electronically signed by: Brandi Damon MD (04/12/2019 3:27 PM) [facility]
== END | disposition home or self-care (01) ==
LOC: CT 07:34
PROVIDERS: ATTEND Internal Medicine Gastroenterology
DX: N28.1 Cyst of kidney, acquired (principal); N28.9 Disorder of kidney and ureter, unspecified; N81.10 Cystocele, unspecified; J98.11 Atelectasis; R19.00 Intra-abdominal and pelvic swelling, mass and lump, unspecified site; K57.10 Diverticulosis of small intestine without perforation or abscess without bleeding; K83.1 Obstruction of bile duct; M48.56XA Collapsed vertebra, not elsewhere classified, lumbar region, initial encounter for fracture; Z90.49 Acquired absence of other specified parts of digestive tract
CPT/HCPCS: 36415; 74170; 82565; 84520; Q9967

== ENCOUNTER 2019-08-22 04:43 | Emergency (ER) | payer OTHER, MEDICAID ==
[~2019-08-22] VITALS: Ht 152.4 cm; Wt 73.9 kg
[~2019-08-22 04:43] MED LIST changes: -GLIM4TAB2 PO; +GLIM4TAB4 PO; -IOHEXOL 300 MG/ML 100ML VIAL. IV ONE
--- NOTE | 2019-08-22 05:07 | PHYS DOC ---
Past Medical History Past Medical History: Diabetes-Type II, High Cholesterol, Hypertension, Kidney Stone Additional Past Medical Histor: Thyroid (KRISS GOMEZ Jr. DO) Past Surgical History: Other Additional Past Surgical Histo: throat sx, tumor removed from R breast; kidney stone removal (KRISS GOMEZ Jr. DO) Alcohol Use: None Drug Use: None (KRISS GOMEZ Jr., DO) Adult General Chief Complaint Chief Complaint: DIZZY/LIGHT HEADED HPI HPI Patient is a 79-year-old female who presents with complaint of dizziness that started at around midnight tonight. Patient had a similar episode about a week ago but it resolved fairly quickly. She states that she woke up to go to the bathroom and was feeling dizzy when she got out of bed. She states that she was also nauseated. Patient describes the dizziness as feeling like everything was spinning. She denies any lateralizing weakness, speech deficit or facial droop. Patient states that the symptoms are continuing at this time.[] (KRISS GOMEZ Jr. DO) Review of Systems Review of Systems Constitutional: Denies fever or chills [] Eyes: Denies change in visual acuity, redness, or eye pain [] Respiratory: Denies cough or shortness of breath [] Cardiovascular: No additional information not addressed in HPI [] GI: Denies abdominal pain, vomiting or diarrhea [] Neurologic: Denies headache, focal weakness or sensory changes. Complains of dizziness. [] All other systems were reviewed and found to be within normal limits, except as documented in this note. (KRISS GOMEZ Jr. DO) Current Medications Current Medications Current Medications Medications (Trade) Dose Ordered Sig/Tacho Start Time Stop Time Status Last Admin Dose Admin Meclizine HCl (Antivert) 25 mg 1X ONCE 08/22/19 05:15 08/22/19 05:16 DC 08/22/19 05:27 25 MG Ondansetron HCl (Zofran) 4 mg 1X ONCE 08/22/19 05:15 08/22/19 05:16 DC 08/22/19 05:26 4 MG Sodium Chloride 1,000 ml @ 250 mls/hr Q4H 08/22/19 05:15 08/22/19 09:14 08/22/19 05:28 250 MLS/HR (LUIS DAY MD) Allergies Allergies Allergies Coded Allergies Type Severity Reaction Last Updated Verified No Known Drug Allergies 03/09/19 No (LUIS DAY MD) Physical Exam Physical Exam Constitutional: Well developed, well nourished, no acute distress, non-toxic appearance. [] HENT: Normocephalic, atraumatic, bilateral external ears normal, oropharynx moist, no oral exudates, nose normal. [] Eyes: PERRLA, EOMI, conjunctiva normal, no discharge. [] Neck: Normal range of motion, no tenderness, supple. [] Cardiovascular: Regular rate and rhythm[] Lungs & Thorax: Bilateral breath sounds clear to auscultation [] Abdomen: Bowel sounds normal, soft, no tenderness. [] Skin: Warm, dry, no erythema, no rash. [] Extremities: No tenderness, no cyanosis, no clubbing, ROM intact. [] Neurologic: Alert and oriented X 3, no focal deficits noted. [] (KRISS GOMEZ Jr. DO) Current Patient Data Vital Signs Vital Signs Date Time Temp Pulse Resp B/P (MAP) Pulse Ox O2 Delivery O2 Flow Rate FiO2 08/22/19 04:50 98.3 81 20 170/81 (110) 98 Room Air 98.3 (LUIS DAY MD) Lab Values Laboratory Tests Test 08/22/19 05:05 08/22/19 06:08 White Blood Count 8.2 x10^3/uL (4.0-11.0) Red Blood Count 3.93 x10^6/uL (3.50-5.40) Hemoglobin 11.5 g/dL (12.0-15.5) L Hematocrit 33.3 % (36.0-47.0) L Mean Corpuscular Volume 85 fL (79-100) Mean Corpuscular Hemoglobin 29 pg (25-35) Mean Corpuscular Hemoglobin Concent 35 g/dL (31-37) Red Cell Distribution Width 13.5 % (11.5-14.5) Platelet Count 271 x10^3/uL (140-400) Neutrophils (%) (Auto) 77 % (31-73) H Lymphocytes (%) (Auto) 15 % (24-48) L Monocytes (%) (Auto) 6 % (0-9) Eosinophils (%) (Auto) 2 % (0-3) Basophils (%) (Auto) 1 % (0-3) Neutrophils # (Auto) 6.3 x10^3/uL (1.8-7.7) Lymphocytes # (Auto) 1.2 x10^3/uL (1.0-4.8) Monocytes # (Auto) 0.5 x10^3/uL (0.0-1.1) Eosinophils # (Auto) 0.2 x10^3/uL (0.0-0.7) Basophils # (Auto) 0.1 x10^3/uL (0.0-0.2) Sodium Level 138 mmol/L (136-145) Potassium Level 3.8 mmol/L (3.5-5.1) Chloride Level 103 mmol/L (98-107) Carbon Dioxide Level 28 mmol/L (21-32) Anion Gap 7 (6-14) Blood Urea Nitrogen 27 mg/dL (7-20) H Creatinine 1.2 mg/dL (0.6-1.0) H Estimated GFR (Cockcroft-Gault) 43.4 BUN/Creatinine Ratio 23 (6-20) H Glucose Level 99 mg/dL (70-99) Calcium Level 9.0 mg/dL (8.5-10.1) Magnesium Level 1.8 mg/dL (1.8-2.4) Total Bilirubin 0.3 mg/dL (0.2-1.0) Aspartate Amino Transferase (AST) 18 U/L (15-37) Alanine Aminotransferase (ALT) 23 U/L (14-59) Alkaline Phosphatase 112 U/L (46-116) Troponin I Quantitative < 0.017 ng/mL (0.000-0.055) Total Protein 7.1 g/dL (6.4-8.2) Albumin 3.3 g/dL (3.4-5.0) L Albumin/Globulin Ratio 0.9 (1.0-1.7) L Thyroid Stimulating Hormone (TSH) 26.535 uIU/mL (0.358-3.74) H Free Thyroxine 1.00 ng/dL (0.76-1.46) Urine Collection Type Unknown Urine Color Yellow Urine Clarity Clear Urine pH 6.0 Urine Specific Lyndon 1.010 Urine Protein 100 mg/dL (NEG-TRACE) Urine Glucose (UA) 250 mg/dL (NEG) Urine Ketones (Stick) Negative mg/dL (NEG) Urine Blood Negative (NEG) Urine Nitrite Negative (NEG) Urine Bilirubin Negative (NEG) Urine Urobilinogen Dipstick 1.0 mg/dL (0.2 mg/dL) Urine Leukocyte Esterase Negative (NEG) Urine RBC Occ /HPF (0-2) Urine WBC 0 /HPF (0-4) Urine Squamous Epithelial Cells Few /LPF Urine Bacteria 0 /HPF (0-FEW) Laboratory Tests 08/22/19 05:05 Laboratory Tests 08/22/19 05:05 (LUIS DAY MD) Lab Values Laboratory Tests Test 08/22/19 05:05 White Blood Count 8.2 x10^3/uL (4.0-11.0) Red Blood Count 3.93 x10^6/uL (3.50-5.40) Hemoglobin 11.5 g/dL (12.0-15.5) L Hematocrit 33.3 % (36.0-47.0) L Mean Corpuscular Volume 85 fL (79-100) Mean Corpuscular Hemoglobin 29 pg (25-35) Mean Corpuscular Hemoglobin Concent 35 g/dL (31-37) Red Cell Distribution Width 13.5 % (11.5-14.5) Platelet Count 271 x10^3/uL (140-400) Neutrophils (%) (Auto) 77 % (31-73) H Lymphocytes (%) (Auto) 15 % (24-48) L Monocytes (%) (Auto) 6 % (0-9) Eosinophils (%) (Auto) 2 % (0-3) Basophils (%) (Auto) 1 % (0-3) Neutrophils # (Auto) 6.3 x10^3/uL (1.8-7.7) Lymphocytes # (Auto) 1.2 x10^3/uL (1.0-4.8) Monocytes # (Auto) 0.5 x10^3/uL (0.0-1.1) Eosinophils # (Auto) 0.2 x10^3/uL (0.0-0.7) Basophils # (Auto) 0.1 x10^3/uL (0.0-0.2) Sodium Level 138 mmol/L (136-145) Potassium Level 3.8 mmol/L (3.5-5.1) Chloride Level 103 mmol/L (98-107) Carbon Dioxide Level 28 mmol/L (21-32) Anion Gap 7 (6-14) Blood Urea Nitrogen 27 mg/dL (7-20) H Creatinine 1.2 mg/dL (0.6-1.0) H Estimated GFR (Cockcroft-Gault) 43.4 BUN/Creatinine Ratio 23 (6-20) H Glucose Level 99 mg/dL (70-99) Calcium Level 9.0 mg/dL (8.5-10.1) Magnesium Level 1.8 mg/dL (1.8-2.4) Total Bilirubin 0.3 mg/dL (0.2-1.0) Aspartate Amino Transferase (AST) 18 U/L (15-37) Alanine Aminotransferase (ALT) 23 U/L (14-59) Alkaline Phosphatase 112 U/L (46-116) Troponin I Quantitative < 0.017 ng/mL (0.000-0.055) Total Protein 7.1 g/dL (6.4-8.2) Albumin 3.3 g/dL (3.4-5.0) L Albumin/Globulin Ratio 0.9 (1.0-1.7) L Thyroid Stimulating Hormone (TSH) 26.535 uIU/mL (0.358-3.74) H Laboratory Tests 08/22/19 05:05 Laboratory Tests 08/22/19 05:05 (KRISS GOMEZ Jr., DO) EKG EKG [] Interpretation Time: EKG demonstrates normal sinus rhythm with rate of 81. (KRISS GOMEZ Jr., DO) Radiology/Procedures Radiology/Procedures [] (KRISS GOMEZ Jr., DO) Impressions: PROCEDURE: CT HEAD WO CONTRAST CT head without contrast: Reason for examination: Dizziness tonight with nausea. Axial images were obtained through the brain. No contrast was administered. Exposure: One or more of the following individualized dose reduction techniques were utilized for this examination: 1. Automated exposure control 2. Adjustment of the mA and/or kV according to patient size 3. Use of iterative reconstruction technique. Ventricular systems are symmetric and not abnormally dilated. No midline shift is seen. There is some mild cerebral atrophy. No intracranial hemorrhage, infarct, mass or edema is evident. There are some minimal patchy deep white matter changes consistent with microvascular ischemia. No abnormalities are seen at the orbits. The paranasal sinuses and mastoid air cells are clear. No acute abnormality seen in the skull. IMPRESSION: Cerebral atrophy but no acute intracranial abnormalities evident. Electronically signed by: Gisela Hernandez MD (08/22/2019 5:50 AM) [facility] DICTATED and SIGNED BY: GISELA HERNANDEZ MD DATE: 08/22/19 0550 (KRISS GOMEZ Jr., DO) Course & Med Decision Making Course & Med Decision Making Pertinent Labs and Imaging studies reviewed. (See chart for details) [] (KRISS GOMEZ Jr., DO) Course & Med Decision Making Patient care transferred to sc by Dr. Gomez at 0600. Patient presented to ER with complaining of dizziness that started at midnight. Patient had unremarkable CT of head and chest x-ray. She ambulated without dizziness after treatment in ER Yesterday. Labs showed mild chronic anemia and renal insufficiency without acute changes. Patient had TSH of 26 and currently on 112 �g of thyroxine with pending T3-T4 results. Patient states she missed her thyroxine only yesterday and has appointment with her primary care physician in 2 days. Patient feels comfortable to go home. Patient was advised to continue her home medication and follow up with her primary care physician appointment for changing the dose of thyroxine as needed. (LUIS DAY MD) Dragon Disclaimer Dragon Disclaimer This electronic medical record was generated, in whole or in part, using a voice recognition dictation system. (KRISS GOMEZ Jr., DO) Departure Departure Impression: Primary Impression: Benign positional vertigo Additional Impression: Hypothyroidism Disposition: 01 HOME, SELF-CARE (@0 [phone]) Condition: IMPROVED Referrals: MAXIMILIAN MEDINA MD (PCP) Patient Instructions: Benign Positional Vertigo, Thyroid Diseases Additional Instructions: Continue home medication Follow-up with your primary care physician as scheduled in 2 days regarding TSH of 26 and hypothyroidism Return to ER if not getting better Scripts Meclizine Hcl (MECLIZINE HCL) 25 Mg Tablet 1 TAB PO TID for dizziness, #20 TAB Prov: LUIS DAY MD 08/22/19 Problem Qualifiers Primary Impression: Benign positional vertigo Laterality: unspecified laterality Qualified Codes: H81.10 - Benign paroxysmal vertigo, unspecified ear Additional Impression: Hypothyroidism Hypothyroidism type: unspecified Qualified Codes: E03.9 - Hypothyroidism, unspecified KRISS GOMEZ Jr., DO Aug 22, 2019 05:07 LUIS DAY MD Aug 22, 2019 07:02
[2019-08-22] MEDS ORDERED: MECLIZINE HCL 12.5 MG TABLET. PO ONE (05:15)
[2019-08-22] MEDS ORDERED: IV NORMAL SALINE 1000ML BAG 1,000 ML IV SCH (05:15)
[2019-08-22] MEDS ORDERED: ONDANSETRON PF 4 MG/2 ML VIAL. IV ONE (05:15)
[2019-08-22 05:16] LABS: BASO # 0.1 x10^3/uL (0.0-0.2); BASO % 1 % (0-3); EOS # 0.2 x10^3/uL (0.0-0.7); EOS % 2 % (0-3); HEMATOCRIT 33.3 % (36.0-47.0); HEMOGLOBIN 11.5 g/dL (12.0-15.5); LYMPH # 1.2 x10^3/uL (1.0-4.8); LYMPH % 15 % (24-48); MEAN CORPUSCULAR HEMOGLOBIN 29 pg (25-35); MEAN CORPUSCULAR HGB CONC 35 g/dL (31-37); MEAN CORPUSCULAR VOLUME 85 fL (79-100); MONO # 0.5 x10^3/uL (0.0-1.1); MONO % 6 % (0-9); NEUT # 6.3 x10^3/uL (1.8-7.7); NEUT % 77 % (31-73); PLATELET COUNT 271 x10^3/uL (140-400); RED BLOOD COUNT 3.93 x10^6/uL (3.50-5.40); RED CELL DISTRIBUTION WIDTH 13.5 % (11.5-14.5); WHITE BLOOD COUNT 8.2 x10^3/uL (4.0-11.0)
[2019-08-22 05:23] LABS: CREATININE 1.2 mg/dL (0.6-1.0); GFR 43.4; POTASSIUM 3.8 mmol/L (3.5-5.1)
[2019-08-22 05:30] LABS: ALBUMIN 3.3 g/dL (3.4-5.0); ALBUMIN/GLOBULIN RATIO 0.9 (1.0-1.7); MAGNESIUM 1.8 mg/dL (1.8-2.4); TOTAL BILIRUBIN 0.3 mg/dL (0.2-1.0); TOTAL PROTEIN 7.1 g/dL (6.4-8.2)
--- NOTE | 2019-08-22 05:45 | EKG ---
[facility] [address] [place] [address] Test Date: 2019-08-22 Test Time: 04:59:35 Pat Name: NAN BEAULIEUDepartment: Room: Gender: F Medical Chief Technician: : [id number] Requested By: KRISS ALMARAZ Order Number: [id number] Reading MD: Measurements Intervals [place] Rate: 80 P: 89 CO: 188 QRS: -29 QRSD: 78 T: 28 QT: 394 QTc: 458 Interpretive Statements SINUS RHYTHM LEFTWARD AXIS T ABNORMALITY IN HIGH LATERAL LEADS ABNORMAL ECG No previous ECG available for comparison
--- NOTE | 2019-08-22 05:53 | RAD ---
CT head without contrast: Reason for examination: Dizziness tonight with nausea. Axial images were obtained through the brain. No contrast was administered. Exposure: One or more of the following individualized dose reduction techniques were utilized for this examination: 1. Automated exposure control 2. Adjustment of the mA and/or kV according to patient size 3. Use of iterative reconstruction technique. Ventricular systems are symmetric and not abnormally dilated. No midline shift is seen. There is some mild cerebral atrophy. No intracranial hemorrhage, infarct, mass or edema is evident. There are some minimal patchy deep white matter changes consistent with microvascular ischemia. No abnormalities are seen at the orbits. The paranasal sinuses and mastoid air cells are clear. No acute abnormality seen in the skull. IMPRESSION: Cerebral atrophy but no acute intracranial abnormalities evident. Electronically signed by: Gisela Valencia MD (08/22/2019 5:50 AM) [facility]
[2019-08-22 06:24] LABS: BILIRUBIN,URINE NEGATIVE (NEG); CLARITY,URINE CLEAR; COLOR,URINE YELLOW; NITRITE,URINE NEGATIVE (NEG); PROTEIN,URINE 100 mg/dL (NEG-TRACE)
[2019-08-22 06:41] LABS: BACTERIA,URINE 0 /HPF (0-FEW); RBC,URINE OCC /HPF (0-2); SQUAMOUS EPITHELIAL CELL,UR FEW /LPF; WBC,URINE 0 /HPF (0-4)
[2019-08-22 06:45] VITALS: BP 172/77
[2019-08-22] MEDS ORDERED: MECL25TA3 PO (07:01)
== END 2019-08-22 07:24 | disposition home or self-care (01) ==
LOC: ER 04:43
DX: H81.10 Benign paroxysmal vertigo, unspecified ear (principal); E03.9 Hypothyroidism, unspecified; R11.0 Nausea; E11.9 Type 2 diabetes mellitus without complications; E78.00 Pure hypercholesterolemia, unspecified; I10 Essential (primary) hypertension; Z87.442 Personal history of urinary calculi
CPT/HCPCS: 36415; 70450; 80053; 81001; 83735; 84436; 84439; 84443; 84484; 85025; 93005; 96361; 96374; 99285; J2405; J7030; J8597

== ENCOUNTER → 2019-08-23 | Outpatient (CLI) | payer OTHER, MEDICAID ==
[2019-08-22 06:45] VITALS: BP 172/77
[~2019-08-23] MED LIST changes: +MECL25TA3 PO
--- NOTE | 2019-08-23 18:40 | RAD ---
DATE: 08/23/2019 EXAM: DIGITAL SCREEN BILAT W/CAD HISTORY: Routine screening lumpectomy with radiation for right breast cancer 1997 COMPARISON: 06/26/2016, 06/28/2017, 08/22/2018 mammographic exams This study was interpreted with the benefit of Computerized Aided Detection (CAD). Breast Density: SCATTERED The breast parenchyma shows scattered fibroglandular densities. Breast parenchyma level B. FINDINGS: Right lumpectomy findings with associated distortion are stable. No suspicious calcification or mass in the interval. No new distortion. IMPRESSION: Stable BI-RADS CATEGORY: 1 NEGATIVE RECOMMENDED FOLLOW-UP: 12M 12 MONTH FOLLOW-UP PQRS compliance statement: Patient information was entered into a reminder system with a target due date for the next mammogram. Mammography is a sensitive method for finding small breast cancers, but it does not detect them all and is not a substitute for careful clinical examination. A negative mammogram does not negate a clinically suspicious finding and should not result in delay in biopsying a clinically suspicious abnormality. "Our facility is accredited by the [employer] Mammography Program."
== END | disposition home or self-care (01) ==
LOC: MAMMO 15:31
PROVIDERS: ATTEND Family Medicine
DX: Z12.31 Encounter for screening mammogram for malignant neoplasm of breast (principal)
CPT/HCPCS: 77067

== ENCOUNTER 2020-04-27 04:25 | Inpatient (IN) | payer MEDICARE, MEDICAID ==
[~2020-04-27] VITALS: Ht 160 cm; Wt 76.1 kg
[~2020-04-27 04:25] MED LIST changes: -GLIM4TAB4 PO; +GLIM4TAB8 PO; -LEVO112T4 PO; +LEVO112T49 PO; +MECL-75 PO; -MECL25TA3 PO; +SIMV40TA18 PO; -SIMV40TA3 PO
[2020-04-27] MEDS ORDERED: ATROPINE 1 MG/10 ML DISP.SYRINGE. ONE (04:39)
--- NOTE | 2020-04-27 04:41 | PHYS DOC ---
Past Medical History Past Medical History: Cancer (R breast), Diabetes-Type II, High Cholesterol, Hypertension, Kidney Stone Additional Past Medical Histor: Thyroid Past Surgical History: Other Additional Past Surgical Histo: throat sx, tumor removed from R breast; kidney stone removal Smoking Status: Never Smoker Alcohol Use: None Drug Use: None General Adult EDM: Chief Complaint: Blood sugar elevated/ Bradycardia HPI: HPI: 79-year-old Uzbek-speaking female presents via EMS with report of severe bradycardia. EMS reports patient's heart rate down to 40 bpm. Report they were initially called out because patient's blood sugar was elevated up to 531 prior to patient going to bed at approximately 2200. Patient awoke and had sensation there was something going on with her face. EMS therefore was called. Patient denies any chest pain, numbness, tingling, lightheadedness, or dizziness. Denies trauma. Denies fever or chills. Utilization of [employer] translation service. Review of Systems: Review of Systems: Constitutional: Denies fever or chills Eyes: Denies redness or eye pain HENT: Denies nasal congestion or sore throat Respiratory: Denies cough or shortness of breath Cardiovascular: Denies chest pain or palpitations GI: Denies abdominal pain, nausea, or vomiting : Denies dysuria or hematuria Musculoskeletal: Denies back pain or joint pain Integument: Denies rash or skin lesions Neurologic: Denies headache, focal weakness or sensory changes Complete systems were reviewed and found to be within normal limits, except as documented in this note. Current Medications: Current Medications Medications (Trade) Dose Ordered Sig/Tacho Start Time Stop Time Status Last Admin Dose Admin Aspirin (Annabella Aspirin) 325 mg 1X ONCE 04/27/20 04:45 04/27/20 04:46 UNV Atropine Sulfate (ATROPINE 0.5mg SYRINGE) 0.5 mg 1X ONCE 04/27/20 04:45 04/27/20 04:46 UNV Atropine Sulfate (ATROPINE 1mg SYRINGE) 1 mg STK-MED ONCE 04/27/20 04:39 04/27/20 04:39 DC Sodium Chloride 1,000 ml @ 1,000 mls/hr 1X ONCE 04/27/20 04:45 04/27/20 05:44 UNV Allergies: Allergies: Allergies Coded Allergies Type Severity Reaction Last Updated Verified No Known Drug Allergies 03/09/19 No Physical Exam: PE: Constitutional: Well developed, well nourished, no acute distress, non-toxic appearance HENT: Normocephalic, atraumatic Eyes: Conjunctiva normal, no discharge Neck: Normal range of motion, no tenderness, supple Cardiovascular: Heart rate bradycardic, regular rhythm Lungs & Thorax: Bilateral breath sounds clear to auscultation, no wheezing Abdomen: Soft, no tenderness Skin: Warm, dry, no erythema, no rash Extremities: No tenderness, ROM intact, no edema Neurologic: Alert and oriented X 3, no focal deficits noted Psychologic: Affect normal, judgment normal EKG: EKG: @0437 Sinus bradycardia at 39bpm, NO ST elevation, QRS 82ms, QT/QTc 462/373ms Radiology/Procedures: Radiology/Procedures: PROCEDURE: CHEST AP ONLY EXAM: CHEST ONE VIEW. HISTORY: Weakness. COMPARISON: 08/23/2017. FINDINGS: A frontal view of the chest is obtained. The lungs are expanded to the 12th posterior ribs. A 2 cm right retrocardiac nodular opacity is likely normal vasculature There are no confluent infiltrates. There is no pneumothorax or pleural effusion. The heart is not enlarged. Changes of right axillary lymph node dissection are noted. IMPRESSION: 1. A 2 cm right retrocardiac nodule is likely a normal vessel. Correlation with an upright 2 view radiograph is suggested when feasible. 2. Hyperinflation. Correlate for deep respiratory effort versus air trapping. Electronically signed by: Brandi Damon MD (04/27/2020 5:46 AM) [facility] Course & Med Decision Making: Course & Med Decision Making Pertinent Labs and Imaging studies reviewed. (See chart for details) Elderly patient presents via EMS with report of low heart rate down to 40 bpm. Patient had reported elevated blood sugar prior to going to bed at 2200. Patient only speaks Uzbek and therefore blue phone interpretation service utilized. EKG confirms severe sinus bradycardia below 40bpm. Pacer pads placed. Atropine given with improvement of HR between 40-50bpm. Labs obtained and posted to chart. Troponin WNL. Acute on chronic renal insufficiency noted when compared to prior lab values per [facility] review. CXR with hyperventilation. Patient requiring admission for further evaluation and treatment. Discussed with Dr. Forunier (hospitalist) who is in agreement with admission. Consult ordered for Dr. Hillman (cardiology). Discussed findings and plan with patient, who acknowledges understanding and agreement. Dragon Disclaimer: Dragon Disclaimer: This electronic medical record was generated, in whole or in part, using a voice recognition dictation system. Departure Departure Impression: Primary Impression: Severe sinus bradycardia Additional Impression: Acute on chronic renal insufficiency Disposition: ADMITTED INPATIENT Admitting Physician: ISMAEL Miramontes) Condition: GUARDED Referrals: MAXIMILIAN MEDINA MD (PCP) Justicifation of Admission Dx: Justifications for Admission: Justification of Admission Dx: Yes Comments: Severe Bradycardia Critical Care Time Critical care time was 30 minutes which includes time at bedside, spent in discussion of patient's care with specialists and/or family members, with interpretation of laboratory and/or radiological studies and is exclusive of procedures. CALEB PAREKH DO Apr 27, 2020 04:41
[2020-04-27] MEDS ORDERED: ATROPINE 0.5 MG/5 ML DISP.SYRINGE. IV ONE ×2 (05:00)
[2020-04-27] MEDS ORDERED: ASPIRIN 325 MG TABLET PO ONE (05:00)
[2020-04-27] MEDS ORDERED: ONDANSETRON PF 4 MG/2 ML VIAL. IV PRN ×2 (05:00→16:30)
[2020-04-27] MEDS ORDERED: DEXTROSE 50% 25 GM / 50ML DISP.SYRIN. IV PRN (05:00)
[2020-04-27] MEDS ORDERED: IV NORMAL SALINE 1000ML BAG 1,000 ML IV ONE (05:00)
[2020-04-27] MEDS: ATROPINE 1 MG/10 ML DISP.SYRINGE. IV PRN ×3 (05:08→05:45)
[2020-04-27 05:11] LABS: BASO # 0.1 x10^3/uL (0.0-0.2); BASO % 1 % (0-3); EOS # 0.4 x10^3/uL (0.0-0.7); EOS % 5 % (0-3); HEMATOCRIT 31.8 % (36.0-47.0); HEMOGLOBIN 10.8 g/dL (12.0-15.5); LYMPH # 1.7 x10^3/uL (1.0-4.8); LYMPH % 20 % (24-48); MEAN CORPUSCULAR HEMOGLOBIN 30 pg (25-35); MEAN CORPUSCULAR HGB CONC 34 g/dL (31-37); MEAN CORPUSCULAR VOLUME 87 fL (79-100); MONO # 0.6 x10^3/uL (0.0-1.1); MONO % 8 % (0-9); NEUT # 5.6 x10^3/uL (1.8-7.7); NEUT % 67 % (31-73); PLATELET COUNT 219 x10^3/uL (140-400); RED BLOOD COUNT 3.65 x10^6/uL (3.50-5.40); RED CELL DISTRIBUTION WIDTH 13.2 % (11.5-14.5); WHITE BLOOD COUNT 8.3 x10^3/uL (4.0-11.0)
[2020-04-27] MEDS ORDERED: ATROPINE 1 MG/10 ML DISP.SYRINGE. IV PRN (05:15)
[2020-04-27 05:25] LABS: CALCIUM 8.4 mg/dL (8.5-10.1); CREATININE 1.7 mg/dL (0.6-1.0); GFR 29.1
[2020-04-27 05:27] LABS: PROTHROMBIN TIME PATIENT 12.3 SEC (11.7-14.0)
[2020-04-27 05:30] LABS: ALBUMIN 2.8 g/dL (3.4-5.0); ALBUMIN/GLOBULIN RATIO 0.7 (1.0-1.7); MAGNESIUM 2.1 mg/dL (1.8-2.4); TOTAL BILIRUBIN 0.2 mg/dL (0.2-1.0); TOTAL PROTEIN 6.6 g/dL (6.4-8.2)
[2020-04-27 05:40] LABS: FREE T4 1.13 ng/dL (0.76-1.46); THYROID STIM HORMONE (TSH) 12.496 uIU/mL (0.358-3.74)
--- NOTE | 2020-04-27 05:49 | RAD ---
EXAM: CHEST ONE VIEW. HISTORY: Weakness. COMPARISON: 08/23/2017. FINDINGS: A frontal view of the chest is obtained. The lungs are expanded to the 12th posterior ribs. A 2 cm right retrocardiac nodular opacity is likely normal vasculature There are no confluent infiltrates. There is no pneumothorax or pleural effusion. The heart is not enlarged. Changes of right axillary lymph node dissection are noted. IMPRESSION: 1. A 2 cm right retrocardiac nodule is likely a normal vessel. Correlation with an upright 2 view radiograph is suggested when feasible. 2. Hyperinflation. Correlate for deep respiratory effort versus air trapping. Electronically signed by: Brandi Damon MD (04/27/2020 5:46 AM) [facility]
[2020-04-27 06:19] VITALS: BP_SYST 121; BP_SYST 127; BP_DIAS 29; BP_DIAS 60
[2020-04-27 07:00] VITALS: BP 126/56
[2020-04-27] MEDS: INSULIN LISPRO 300 UNITS/3 ML VIAL. SQ SCH ×3 (08:00→17:00)
[2020-04-27] MEDS ORDERED: ALPRAZolam 0.25 MG TABLET PO PRN (08:30)
--- NOTE | 2020-04-27 10:25 | PDOC2 ---
CONSULT Date of Consult Date of Consult DATE: 04/27/20 TIME: 10:25 Reason for Consult Reason for Consult: Bradycardia Referring Physician Referring Physician: Dr. Hill Identification/Chief Complaint Chief Complaint High blood sugar Source Source: Chart review, Patient History of Present Illness Reason for Visit: 79-year-old female apparently had a very high blood sugar of 531 before going to bed last night. She usually feels her heart rate but last night she did not feel it and when she checked her pulse it was low. EMS was called and she was found to be severely bradycardic and brought to ED. Upon my exam, telemetry showed high-grade second-degree AV block with heart rate in 30s. Patient however denied any dizziness/lightheadedness, chest pain, orthopnea/PND or syncope. She is not on any rate lowering medications as an outpatient. Past Medical History Cardiovascular: No pertinent hx Hepatobiliary: No pertinent hx Psych: No pertinent hx Infectious disease: Bacterial vaginosis Renal/: No pertinent hx Endocrine: Diabetes Family History Family History: Diabetes Social History ALCOHOL: none Drugs: None Lives: with Family Current Problem List Problem List Problems Medical Problems: (1) Acute on chronic renal insufficiency Status: Acute (2) Severe sinus bradycardia Status: Acute Current Medications Current Medications Current Medications Aspirin (Annabella Aspirin) 325 mg 1X ONCE PO Last administered on 04/27/20at 05:10; Start 04/27/20 at 05:00; Stop 04/27/20 at 05:01; Status DC Sodium Chloride 1,000 ml @ 1,000 mls/hr 1X ONCE IV Last administered on 04/27/20at 05:10; Start 04/27/20 at 05:00; Stop 04/27/20 at 05:59; Status DC Atropine Sulfate (ATROPINE 0.5mg SYRINGE) 0.5 mg 1X ONCE IV ; Start 04/27/20 at 05:00; Stop 04/27/20 at 05:01; Status DC Atropine Sulfate (ATROPINE 1mg SYRINGE) 1 mg STK-MED ONCE .ROUTE ; Start 04/27/20 at 04:39; Stop 04/27/20 at 04:39; Status DC Atropine Sulfate (ATROPINE 0.5mg SYRINGE) 0.5 mg 1X ONCE IV ; Start 04/27/20 at 05:00; Stop 04/27/20 at 05:01; Status DC Ondansetron HCl (Zofran) 4 mg PRN Q8HRS PRN IV NAUSEA/VOMITING; Start 04/27/20 at 05:00; Stop 04/28/20 at 04:59 Insulin Human Lispro (HumaLOG) 0-5 UNITS TIDWMEALS SQ ; Start 04/27/20 at 08:00 Dextrose (Dextrose 50%-Water Syringe) 12.5 gm PRN Q15MIN PRN IV SEE COMMENTS; Start 04/27/20 at 05:00 Atropine Sulfate (ATROPINE 1mg SYRINGE) 0.5 mg PRN Q1HR PRN IV SEE COMMENTS Last administered on 04/27/20at 05:45; Start 04/27/20 at 05:00; Stop 04/27/20 at 10:00; Status DC Atropine Sulfate (ATROPINE 1mg SYRINGE) 1 mg PRN Q1HR PRN IV SEE COMMENTS; Start 04/27/20 at 05:15; Stop 04/27/20 at 10:00; Status DC Alprazolam (Xanax) 0.25 mg PRN Q8HRS PRN PO ANXIETY / AGITATION Last administered on 04/27/20at 09:05; Start 04/27/20 at 08:30 Active Scripts Active Meclizine Hcl 25 Mg Tablet 1 Tab PO TID Reported Novolog (Insulin Aspart) 100 Unit/1 Ml Cartridge 100 Unit SQ DAILY Tresiba (Insulin Degludec) 100 Unit/1 Ml Vial 100 Unit SQ DAILY Atorvastatin Calcium 40 Mg Tablet 1 Tab PO DAILY Glimepiride 4 Mg Tablet 1 Tab PO DAILY Levothyroxine Sodium 112 Mcg Tablet 1 Tab PO DAILY Lasix (Furosemide) 20 Mg Tablet 1 Tab PO DAILY Xanax (Alprazolam) 0.25 Mg Tablet 1 Tab PO DAILY Allergies Allergies: Coded Allergies: No Known Drug Allergies (Unverified , 03/09/19) ROS PSYCHOLOGICAL ROS: No: Hallucinations Eyes: No Loss of vision HEENT: No: Epistaxis Respiratory: No: Hemoptysis Cardiovascular: No Chest Pain Gastrointestinal: No Vomiting, No Diarrhea Neurological: No Dizziness, No Seizures Skin: No Rash Physical Exam General: Alert, Oriented X3 HEENT: Atraumatic Lungs: Clear to auscultation Heart: Other (Bradycardic) Abdomen: Soft Extremities: No edema Psych/Mental Status: Mood NL Vitals VITALS Vital Signs Date Time Temp Pulse Resp B/P (MAP) Pulse Ox O2 Delivery O2 Flow Rate FiO2 04/27/20 07:00 98.1 39 18 126/56 (79) 100 Nasal Cannula 2.0 98.1 Labs Labs Laboratory Tests Test 04/27/20 04:55 04/27/20 07:42 04/27/20 07:55 White Blood Count 8.3 x10^3/uL (4.0-11.0) Red Blood Count 3.65 x10^6/uL (3.50-5.40) Hemoglobin 10.8 g/dL (12.0-15.5) Hematocrit 31.8 % (36.0-47.0) Mean Corpuscular Volume 87 fL (79-100) Mean Corpuscular Hemoglobin 30 pg (25-35) Mean Corpuscular Hemoglobin Concent 34 g/dL (31-37) Red Cell Distribution Width 13.2 % (11.5-14.5) Platelet Count 219 x10^3/uL (140-400) Neutrophils (%) (Auto) 67 % (31-73) Lymphocytes (%) (Auto) 20 % (24-48) Monocytes (%) (Auto) 8 % (0-9) Eosinophils (%) (Auto) 5 % (0-3) Basophils (%) (Auto) 1 % (0-3) Neutrophils # (Auto) 5.6 x10^3/uL (1.8-7.7) Lymphocytes # (Auto) 1.7 x10^3/uL (1.0-4.8) Monocytes # (Auto) 0.6 x10^3/uL (0.0-1.1) Eosinophils # (Auto) 0.4 x10^3/uL (0.0-0.7) Basophils # (Auto) 0.1 x10^3/uL (0.0-0.2) Prothrombin Time 12.3 SEC (11.7-14.0) Prothromb Time International Ratio 1.0 (0.8-1.1) Sodium Level 137 mmol/L (136-145) Potassium Level 4.0 mmol/L (3.5-5.1) Chloride Level 103 mmol/L (98-107) Carbon Dioxide Level 23 mmol/L (21-32) Anion Gap 11 (6-14) Blood Urea Nitrogen 40 mg/dL (7-20) Creatinine 1.7 mg/dL (0.6-1.0) Estimated GFR (Cockcroft-Gault) 29.1 BUN/Creatinine Ratio 24 (6-20) Glucose Level 282 mg/dL (70-99) Calcium Level 8.4 mg/dL (8.5-10.1) Magnesium Level 2.1 mg/dL (1.8-2.4) Total Bilirubin 0.2 mg/dL (0.2-1.0) Aspartate Amino Transf (AST/SGOT) 18 U/L (15-37) Alanine Aminotransferase (ALT/SGPT) 24 U/L (14-59) Alkaline Phosphatase 110 U/L (46-116) Creatine Kinase 190 U/L (26-192) Creatine Kinase MB (Mass) 2.4 ng/mL (0.0-3.6) Creatine Kinase MB Relative Index 1.3 % (0-4) Troponin I Quantitative < 0.017 ng/mL (0.000-0.055) < 0.017 ng/mL (0.000-0.055) [id number]-[id number]-Type Natriuretic Peptide 678 pg/mL (0-449) Total Protein 6.6 g/dL (6.4-8.2) Albumin 2.8 g/dL (3.4-5.0) Albumin/Globulin Ratio 0.7 (1.0-1.7) Lipase 111 U/L (73-393) Thyroid Stimulating Hormone (TSH) 12.496 uIU/mL (0.358-3.74) Free Thyroxine 1.13 ng/dL (0.76-1.46) Free Triiodothyronine (T3) pg/mL 1.66 pg/mL (2.18-3.98) Glucose (Fingerstick) 179 mg/dL (70-99) Laboratory Tests Test 04/27/20 04:55 04/27/20 07:42 04/27/20 07:55 White Blood Count 8.3 x10^3/uL (4.0-11.0) Red Blood Count 3.65 x10^6/uL (3.50-5.40) Hemoglobin 10.8 g/dL (12.0-15.5) Hematocrit 31.8 % (36.0-47.0) Mean Corpuscular Volume 87 fL (79-100) Mean Corpuscular Hemoglobin 30 pg (25-35) Mean Corpuscular Hemoglobin Concent 34 g/dL (31-37) Red Cell Distribution Width 13.2 % (11.5-14.5) Platelet Count 219 x10^3/uL (140-400) Neutrophils (%) (Auto) 67 % (31-73) Lymphocytes (%) (Auto) 20 % (24-48) Monocytes (%) (Auto) 8 % (0-9) Eosinophils (%) (Auto) 5 % (0-3) Basophils (%) (Auto) 1 % (0-3) Neutrophils # (Auto) 5.6 x10^3/uL (1.8-7.7) Lymphocytes # (Auto) 1.7 x10^3/uL (1.0-4.8) Monocytes # (Auto) 0.6 x10^3/uL (0.0-1.1) Eosinophils # (Auto) 0.4 x10^3/uL (0.0-0.7) Basophils # (Auto) 0.1 x10^3/uL (0.0-0.2) Prothrombin Time 12.3 SEC (11.7-14.0) Prothromb Time International Ratio 1.0 (0.8-1.1) Sodium Level 137 mmol/L (136-145) Potassium Level 4.0 mmol/L (3.5-5.1) Chloride Level 103 mmol/L (98-107) Carbon Dioxide Level 23 mmol/L (21-32) Anion Gap 11 (6-14) Blood Urea Nitrogen 40 mg/dL (7-20) Creatinine 1.7 mg/dL (0.6-1.0) Estimated GFR (Cockcroft-Gault) 29.1 BUN/Creatinine Ratio 24 (6-20) Glucose Level 282 mg/dL (70-99) Calcium Level 8.4 mg/dL (8.5-10.1) Magnesium Level 2.1 mg/dL (1.8-2.4) Total Bilirubin 0.2 mg/dL (0.2-1.0) Aspartate Amino Transf (AST/SGOT) 18 U/L (15-37) Alanine Aminotransferase (ALT/SGPT) 24 U/L (14-59) Alkaline Phosphatase 110 U/L (46-116) Creatine Kinase 190 U/L (26-192) Creatine Kinase MB (Mass) 2.4 ng/mL (0.0-3.6) Creatine Kinase MB Relative Index 1.3 % (0-4) Troponin I Quantitative < 0.017 ng/mL (0.000-0.055) < 0.017 ng/mL (0.000-0.055) JC-Dpn-C-Type Natriuretic Peptide 678 pg/mL (0-449) Total Protein 6.6 g/dL (6.4-8.2) Albumin 2.8 g/dL (3.4-5.0) Albumin/Globulin Ratio 0.7 (1.0-1.7) Lipase 111 U/L (73-393) Thyroid Stimulating Hormone (TSH) 12.496 uIU/mL (0.358-3.74) Free Thyroxine 1.13 ng/dL (0.76-1.46) Free Triiodothyronine (T3) pg/mL 1.66 pg/mL (2.18-3.98) Glucose (Fingerstick) 179 mg/dL (70-99) Assessment/Plan Assessment/Plan 1. 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 Blood pressure stable. Plan for permanent pacemaker implantation, possibly on Wednesday. Check 2D echo to assess LV systolic function. 2. Hypertension: Controlled 3. Hyperlipidemia: Continue statin therapy 4. Hypothyroidism with elevated TSH level. Treat per IM. 5. Diabetes mellitus type 2: Continue current medical regimen. Thank you for your consultation. CHRISTIANO DENT MD Apr 27, 2020 10:25
--- NOTE | 2020-04-27 10:25 | PDOC1 ---
History and Physical Date of Admission Date of Admission DATE: 04/27/20 TIME: 10:24 Identification/Chief Complaint Chief Complaint SEEN IN ER WITH BRADYCARDIA 79-year-old Czech-speaking female presents via EMS with report of severe bradycardia. EMS reports patient's heart rate down to 40 bpm. Report they were initially called out because patient's blood sugar was elevated up to 531 prior to patient going to bed at approximately 2200. 04/26 EMS called. denies any chest pain, numbness, tingling, lightheadedness, or dizziness HR here as low as 35 //Atropine given in er with improvement of HR between 40-50bpm. Past Medical History Past Medical History Past Medical History Past Medical History: Cancer (R breast), Diabetes-Type II, High Cholesterol, Hypertension, Kidney Stone Additional Past Medical Histor: Thyroid Past Surgical History: Other Additional Past Surgical Histo: throat sx, tumor removed from R breast; kidney stone removal Smoking Status: Never Smoker Alcohol Use: None Drug Use: None FHX HTN Cardiovascular: No pertinent hx Hepatobiliary: No pertinent hx Psych: No pertinent hx Infectious disease: Bacterial vaginosis Renal/: No pertinent hx Endocrine: Diabetes Family History Family History: Diabetes, Hypertension Social History Smoke: No ALCOHOL: none Drugs: None Current Problem List Problem List Problems Medical Problems: (1) Acute on chronic renal insufficiency Status: Acute (2) Severe sinus bradycardia Status: Acute Current Medications Current Medications Current Medications Aspirin (Annabella Aspirin) 325 mg 1X ONCE PO Last administered on 04/27/20at 05:10; Start 04/27/20 at 05:00; Stop 04/27/20 at 05:01; Status DC Sodium Chloride 1,000 ml @ 1,000 mls/hr 1X ONCE IV Last administered on 04/27/20at 05:10; Start 04/27/20 at 05:00; Stop 04/27/20 at 05:59; Status DC Atropine Sulfate (ATROPINE 0.5mg SYRINGE) 0.5 mg 1X ONCE IV ; Start 04/27/20 at 05:00; Stop 04/27/20 at 05:01; Status DC Atropine Sulfate (ATROPINE 1mg SYRINGE) 1 mg STK-MED ONCE .ROUTE ; Start 04/27/20 at 04:39; Stop 04/27/20 at 04:39; Status DC Atropine Sulfate (ATROPINE 0.5mg SYRINGE) 0.5 mg 1X ONCE IV ; Start 04/27/20 at 05:00; Stop 04/27/20 at 05:01; Status DC Ondansetron HCl (Zofran) 4 mg PRN Q8HRS PRN IV NAUSEA/VOMITING; Start 04/27/20 at 05:00; Stop 04/28/20 at 04:59 Insulin Human Lispro (HumaLOG) 0-5 UNITS TIDWMEALS SQ ; Start 04/27/20 at 08:00 Dextrose (Dextrose 50%-Water Syringe) 12.5 gm PRN Q15MIN PRN IV SEE COMMENTS; Start 04/27/20 at 05:00 Atropine Sulfate (ATROPINE 1mg SYRINGE) 0.5 mg PRN Q1HR PRN IV SEE COMMENTS Last administered on 04/27/20at 05:45; Start 04/27/20 at 05:00; Stop 04/27/20 at 10:00; Status DC Atropine Sulfate (ATROPINE 1mg SYRINGE) 1 mg PRN Q1HR PRN IV SEE COMMENTS; Sta rt 04/27/20 at 05:15; Stop 04/27/20 at 10:00; Status DC Alprazolam (Xanax) 0.25 mg PRN Q8HRS PRN PO ANXIETY / AGITATION Last ad ministered on 04/27/20at 09:05; Start 04/27/20 at 08:30 Active Scripts Active Meclizine Hcl 25 Mg Tablet 1 Tab PO TID Reported Novolog (Insulin Aspart) 100 Unit/1 Ml Cartridge 100 Unit SQ DAILY Tresiba (Insulin Degludec) 100 Unit/1 Ml Vial 100 Unit SQ DAILY Atorvastatin Calcium 40 Mg Tablet 1 Tab PO DAILY Glimepiride 4 Mg Tablet 1 Tab PO DAILY Levothyroxine Sodium 112 Mcg Tablet 1 Tab PO DAILY Lasix (Furosemide) 20 Mg Tablet 1 Tab PO DAILY Xanax (Alprazolam) 0.25 Mg Tablet 1 Tab PO DAILY Allergies Allergies: Coded Allergies: No Known Drug Allergies (Unverified , 03/09/19) ROS Review of System Constitutional: Denies fever or chills Eyes: Denies redness or eye pain HENT: Denies nasal congestion or sore throat Respiratory: Denies cough or shortness of breath Cardiovascular: Denies chest pain or palpitations GI: Denies abdominal pain, nausea, or vomiting : Denies dysuria or hematuria Musculoskeletal: Denies back pain or joint pain Integument: Denies rash or skin lesions Neurologic: Denies headache, focal weakness or sensory changes 14 pt systems were reviewed and found to be within normal limits, except as documented PSYCHOLOGICAL ROS: No: Anxiety, Behavioral Disorder, Concentration difficultie, Decreased libido, Depression, Disorientation, Hallucinations, Hostility, Irritablity, Memory difficulties, Mood Swings, Obsessive thoughts, Physical abuse, Sexual abuse, Sleep disturbances, Suicidal ideation, Other Hematological and Lymphatic: No: Bleeding Problems, Blood Clots, Blood Transfusions, Brusing, Night Sweats, Pallor, Swollen Lymph Nodes, Other Physical Exam Physical Exam Constitutional: Well developed, well nourished, no acute distress, non-toxic appearance HENT: Normocephalic, atraumatic Eyes: Conjunctiva normal, no discharge Neck: Normal range of motion, no tenderness, supple Cardiovascular: Heart rate bradycardic, regular rhythm Lungs & Thorax: Bilateral breath sounds clear to auscultation, no wheezing Abdomen: Soft, no tenderness Skin: Warm, dry, no erythema, no rash Extremities: No tenderness, ROM intact, no edema Neurologic: Alert and oriented X 3, no focal deficits noted Psychologic: Affect normal, judgment normal Vitals Vitals Vital Signs Date Time Temp Pulse Resp B/P (MAP) Pulse Ox O2 Delivery O2 Flow Rate FiO2 04/27/20 07:00 98.1 39 18 126/56 (79) 100 Nasal Cannula 2.0 98.1 Labs Labs Laboratory Tests Test 04/27/20 04:55 04/27/20 07:42 04/27/20 07:55 White Blood Count 8.3 x10^3/uL (4.0-11.0) Red Blood Count 3.65 x10^6/uL (3.50-5.40) Hemoglobin 10.8 g/dL (12.0-15.5) Hematocrit 31.8 % (36.0-47.0) Mean Corpuscular Volume 87 fL (79-100) Mean Corpuscular Hemoglobin 30 pg (25-35) Mean Corpuscular Hemoglobin Concent 34 g/dL (31-37) Red Cell Distribution Width 13.2 % (11.5-14.5) Platelet Count 219 x10^3/uL (140-400) Neutrophils (%) (Auto) 67 % (31-73) Lymphocytes (%) (Auto) 20 % (24-48) Monocytes (%) (Auto) 8 % (0-9) Eosinophils (%) (Auto) 5 % (0-3) Basophils (%) (Auto) 1 % (0-3) Neutrophils # (Auto) 5.6 x10^3/uL (1.8-7.7) Lymphocytes # (Auto) 1.7 x10^3/uL (1.0-4.8) Monocytes # (Auto) 0.6 x10^3/uL (0.0-1.1) Eosinophils # (Auto) 0.4 x10^3/uL (0.0-0.7) Basophils # (Auto) 0.1 x10^3/uL (0.0-0.2) Prothrombin Time 12.3 SEC (11.7-14.0) Prothromb Time International Ratio 1.0 (0.8-1.1) Sodium Level 137 mmol/L (136-145) Potassium Level 4.0 mmol/L (3.5-5.1) Chloride Level 103 mmol/L (98-107) Carbon Dioxide Level 23 mmol/L (21-32) Anion Gap 11 (6-14) Blood Urea Nitrogen 40 mg/dL (7-20) Creatinine 1.7 mg/dL (0.6-1.0) Estimated GFR (Cockcroft-Gault) 29.1 BUN/Creatinine Ratio 24 (6-20) Glucose Level 282 mg/dL (70-99) Calcium Level 8.4 mg/dL (8.5-10.1) Magnesium Level 2.1 mg/dL (1.8-2.4) Total Bilirubin 0.2 mg/dL (0.2-1.0) Aspartate Amino Transf (AST/SGOT) 18 U/L (15-37) Alanine Aminotransferase (ALT/SGPT) 24 U/L (14-59) Alkaline Phosphatase 110 U/L (46-116) Creatine Kinase 190 U/L (26-192) Creatine Kinase MB (Mass) 2.4 ng/mL (0.0-3.6) Creatine Kinase MB Relative Index 1.3 % (0-4) Troponin I Quantitative < 0.017 ng/mL (0.000-0.055) < 0.017 ng/mL (0.000-0.055) LZ-Lui-B-Type Natriuretic Peptide 678 pg/mL (0-449) Total Protein 6.6 g/dL (6.4-8.2) Albumin 2.8 g/dL (3.4-5.0) Albumin/Globulin Ratio 0.7 (1.0-1.7) Lipase 111 U/L (73-393) Thyroid Stimulating Hormone (TSH) 12.496 uIU/mL (0.358-3.74) Free Thyroxine 1.13 ng/dL (0.76-1.46) Free Triiodothyronine (T3) pg/mL 1.66 pg/mL (2.18-3.98) Glucose (Fingerstick) 179 mg/dL (70-99) Laboratory Tests Test 04/27/20 04:55 04/27/20 07:42 04/27/20 07:55 White Blood Count 8.3 x10^3/uL (4.0-11.0) Red Blood Count 3.65 x10^6/uL (3.50-5.40) Hemoglobin 10.8 g/dL (12.0-15.5) Hematocrit 31.8 % (36.0-47.0) Mean Corpuscular Volume 87 fL (79-100) Mean Corpuscular Hemoglobin 30 pg (25-35) Mean Corpuscular Hemoglobin Concent 34 g/dL (31-37) Red Cell Distribution Width 13.2 % (11.5-14.5) Platelet Count 219 x10^3/uL (140-400) Neutrophils (%) (Auto) 67 % (31-73) Lymphocytes (%) (Auto) 20 % (24-48) Monocytes (%) (Auto) 8 % (0-9) Eosinophils (%) (Auto) 5 % (0-3) Basophils (%) (Auto) 1 % (0-3) Neutrophils # (Auto) 5.6 x10^3/uL (1.8-7.7) Lymphocytes # (Auto) 1.7 x10^3/uL (1.0-4.8) Monocytes # (Auto) 0.6 x10^3/uL (0.0-1.1) Eosinophils # (Auto) 0.4 x10^3/uL (0.0-0.7) Basophils # (Auto) 0.1 x10^3/uL (0.0-0.2) Prothrombin Time 12.3 SEC (11.7-14.0) Prothromb Time International Ratio 1.0 (0.8-1.1) Sodium Level 137 mmol/L (136-145) Potassium Level 4.0 mmol/L (3.5-5.1) Chloride Level 103 mmol/L (98-107) Carbon Dioxide Level 23 mmol/L (21-32) Anion Gap 11 (6-14) Blood Urea Nitrogen 40 mg/dL (7-20) Creatinine 1.7 mg/dL (0.6-1.0) Estimated GFR (Cockcroft-Gault) 29.1 BUN/Creatinine Ratio 24 (6-20) Glucose Level 282 mg/dL (70-99) Calcium Level 8.4 mg/dL (8.5-10.1) Magnesium Level 2.1 mg/dL (1.8-2.4) Total Bilirubin 0.2 mg/dL (0.2-1.0) Aspartate Amino Transf (AST/SGOT) 18 U/L (15-37) Alanine Aminotransferase (ALT/SGPT) 24 U/L (14-59) Alkaline Phosphatase 110 U/L (46-116) Creatine Kinase 190 U/L (26-192) Creatine Kinase MB (Mass) 2.4 ng/mL (0.0-3.6) Creatine Kinase MB Relative Index 1.3 % (0-4) Troponin I Quantitative < 0.017 ng/mL (0.000-0.055) < 0.017 ng/mL (0.000-0.055) RP-Rnt-U-Type Natriuretic Peptide 678 pg/mL (0-449) Total Protein 6.6 g/dL (6.4-8.2) Albumin 2.8 g/dL (3.4-5.0) Albumin/Globulin Ratio 0.7 (1.0-1.7) Lipase 111 U/L (73-393) Thyroid Stimulating Hormone (TSH) 12.496 uIU/mL (0.358-3.74) Free Thyroxine 1.13 ng/dL (0.76-1.46) Free Triiodothyronine (T3) pg/mL 1.66 pg/mL (2.18-3.98) Glucose (Fingerstick) 179 mg/dL (70-99) Images Images HISTORY: Weakness. COMPARISON: 08/23/2017. FINDINGS: A frontal view of the chest is obtained. The lungs are expanded to the 12th posterior ribs. A 2 cm right retrocardiac nodular opacity is likely normal vasculature There are no confluent infiltrates. There is no pneumothorax or pleural effusion. The heart is not enlarged. Changes of right axillary lymph node dissection are noted. IMPRESSION: 1. A 2 cm right retrocardiac nodule is likely a normal vessel. Correlation with an upright 2 view radiograph is suggested when feasible. 2. Hyperinflation. Correlate for deep respiratory effort versus air trapping. Electronically signed by: Brandi Damon MD (04/27/2020 5:46 AM) [facility] DICTATED and SIGNED BY: WEN DAMON MD DATE: 04/27/20 0546 VTE Prophylaxis Ordered VTE Prophylaxis Devices: No VTE Pharmacological Prophylaxi: Yes Assessment/Plan Assessment/Plan Impression: sinus bradycardia on norvasc 10 mg po daily Hypothyroid state on replacement Acute on chronic renal insufficiency 2 cm right retrocardiac nodule is likely a normal vessel. Correlation with an upright 2 view radiograph is suggested when feasible. Hyperinflation. Correlate for deep respiratory effort versus air 04/27 // HR 35 ON MY VISIT ADMITTED cvc bed hold norvasc CARDIOLOGY CONSULT dvt prophylaxis recheck tsh in 2 weeks D/W RN Justicifation of Admission Dx: Justifications for Admission: Justification of Admission Dx: Yes CHF: Hemodynamic Instability Comments: BRADYCARDIA OF CONCERN FOR SINUS NODE DISEASE DARRIUS PINEDA MD Apr 27, 2020 10:25
[2020-04-27 10:52] VITALS: BP 115/52
[2020-04-27] MEDS ORDERED: AMLO10TA8 PO (14:10)
[2020-04-27 14:59] VITALS: BP 111/47
[2020-04-27] MEDS ORDERED: guaiFENesin ORAL 200 MG/10 ML LIQUID. PO PRN (16:30)
[2020-04-27] MEDS ORDERED: DOCUSATE SODIUM 100 MG CAPSULE. PO PRN (16:30)
[2020-04-27] MEDS ORDERED: ALBUTEROL SULFATE 2.5 MG/3 ML NEBU. NEB PRN (16:30)
[2020-04-27] MEDS ORDERED: MAG HYDROX/ALUMINUM HYD/SIMETH 30 ML ORAL.SUSP PO PRN (16:30)
[2020-04-27] MEDS ORDERED: SODIUM PHOSPHATES 19/7GM 133 ML ENEMA. PR PRN (16:30)
[2020-04-27] MEDS ORDERED: 0.9 % SODIUM CHLORIDE 10 ML DISP.SYRIN. IV PRN (16:30)
[2020-04-27] MEDS ORDERED: LORazepam 0.5 MG TABLET PO PRN (16:30)
[2020-04-27] MEDS: LEVOTHYROXINE 112 MCG TABLET PO SCH (16:30)
[2020-04-27] MEDS: ENOXAPARIN 30 MG/0.3 ML SYRINGE. SQ SCH (17:00)
[2020-04-27 19:00] VITALS: BP 124/58
[2020-04-27] MEDS: ATORVASTATIN CALCIUM 40 MG TABLET. PO SCH (20:52)
[2020-04-27] MEDS: TRESIBA SQ SCH (21:38)
[2020-04-27 23:44] VITALS: BP 103/48
[2020-04-28] VITALS (16 sets, daily range): BP systolic 115–153; BP diastolic 50–81
[2020-04-28] MEDS: LEVOTHYROXINE 112 MCG TABLET PO SCH (06:00)
[2020-04-28 07:52] LABS: CHOLESTEROL/HDL RATIO 4.1
[2020-04-28] MEDS: INSULIN LISPRO 300 UNITS/3 ML VIAL. SQ SCH ×3 (07:55→16:58)
[2020-04-28] MEDS ORDERED: ALPRAZolam 0.25 MG TABLET PO SCH (09:00)
--- NOTE | 2020-04-28 11:47 | PDOC ---
PROGRESS NOTES History of Present Illness History of Present Illness VTE Prophylaxis Ordered VTE Prophylaxis Devices: No VTE Pharmacological Prophylaxi: Yes impression Assessment/Plan Impression: sinus bradycardia on norvasc 10 mg po daily on hold Hypothyroid state on replacement Acute on chronic renal insufficiency 2 cm right retrocardiac nodule is likely a normal vessel. Correlation with an upright 2 view radiograph is suggested when feasible. Hyperinflation. Correlate for deep respiratory effort versus air 04/27 // HR 35 ON MY VISIT 04/28 started on intravenous dopamine overnight for bradycardia. ADMITTED cvc bed hold norvasc CARDIOLOGY CONSULT dvt prophylaxis recheck tsh in 2 weeks D/W RN Justicifation of Admission Dx: Justicifation of Admission Dx: Justifications for Admission: Justification of Admission Dx: Yes CHF: Hemodynamic Instability Comments: BRADYCARDIA OF CONCERN FOR SINUS NODE DISEASE Vitals Vitals Vital Signs Date Time Temp Pulse Resp B/P (MAP) Pulse Ox O2 Delivery O2 Flow Rate FiO2 04/28/20 10:57 98.3 35 18 134/68 (90) 96 Room Air 98.3 04/27/20 10:52 2.0 Physical Exam General: Alert, Oriented X3, Cooperative, No acute distress Heart: Regular rate, Other (Bradycardic) Lungs: Clear Abdomen: Normal bowel sounds, Soft Extremities: No clubbing, No cyanosis, No edema Skin: No significant lesion Labs LABS Laboratory Tests Test 04/27/20 16:27 04/27/20 20:44 04/27/20 22:00 04/28/20 06:50 Glucose (Fingerstick) 171 mg/dL (70-99) 179 mg/dL (70-99) Coronavirus (COVID-19)(PCR) Negative (NEGATIVE) Triglycerides Level 113 mg/dL (0-150) Cholesterol Level 138 mg/dL (0-200) LDL Cholesterol, Calculated 81 mg/dL (0-100) VLDL Cholesterol, Calculated 23 mg/dL (0-40) Non-HDL Cholesterol Calculated 104 mg/dL (0-129) HDL Cholesterol 34 mg/dL (40-60) Cholesterol/HDL Ratio 4.1 Test 04/28/20 07:36 04/28/20 11:38 Glucose (Fingerstick) 175 mg/dL (70-99) 272 mg/dL (70-99) Assessment and Plan Assessmemt and Plan Problems Medical Problems: (1) Acute on chronic renal insufficiency Status: Acute (2) Severe sinus bradycardia Status: Acute Comment Review of Relevant I have reviewed the following items yelena (where applicable) has been applied. Labs Laboratory Tests Test 04/27/20 04:55 04/27/20 07:42 04/27/20 07:55 04/27/20 10:54 White Blood Count 8.3 x10^3/uL (4.0-11.0) Red Blood Count 3.65 x10^6/uL (3.50-5.40) Hemoglobin 10.8 g/dL (12.0-15.5) Hematocrit 31.8 % (36.0-47.0) Mean Corpuscular Volume 87 fL (79-100) Mean Corpuscular Hemoglobin 30 pg (25-35) Mean Corpuscular Hemoglobin Concent 34 g/dL (31-37) Red Cell Distribution Width 13.2 % (11.5-14.5) Platelet Count 219 x10^3/uL (140-400) Neutrophils (%) (Auto) 67 % (31-73) Lymphocytes (%) (Auto) 20 % (24-48) Monocytes (%) (Auto) 8 % (0-9) Eosinophils (%) (Auto) 5 % (0-3) Basophils (%) (Auto) 1 % (0-3) Neutrophils # (Auto) 5.6 x10^3/uL (1.8-7.7) Lymphocytes # (Auto) 1.7 x10^3/uL (1.0-4.8) Monocytes # (Auto) 0.6 x10^3/uL (0.0-1.1) Eosinophils # (Auto) 0.4 x10^3/uL (0.0-0.7) Basophils # (Auto) 0.1 x10^3/uL (0.0-0.2) Prothrombin Time 12.3 SEC (11.7-14.0) Prothromb Time International Ratio 1.0 (0.8-1.1) Sodium Level 137 mmol/L (136-145) Potassium Level 4.0 mmol/L (3.5-5.1) Chloride Level 103 mmol/L (98-107) Carbon Dioxide Level 23 mmol/L (21-32) Anion Gap 11 (6-14) Blood Urea Nitrogen 40 mg/dL (7-20) Creatinine 1.7 mg/dL (0.6-1.0) Estimated GFR (Cockcroft-Gault) 29.1 BUN/Creatinine Ratio 24 (6-20) Glucose Level 282 mg/dL (70-99) Calcium Level 8.4 mg/dL (8.5-10.1) Magnesium Level 2.1 mg/dL (1.8-2.4) Total Bilirubin 0.2 mg/dL (0.2-1.0) Aspartate Amino Transf (AST/SGOT) 18 U/L (15-37) Alanine Aminotransferase (ALT/SGPT) 24 U/L (14-59) Alkaline Phosphatase 110 U/L (46-116) Creatine Kinase 190 U/L (26-192) Creatine Kinase MB (Mass) 2.4 ng/mL (0.0-3.6) Creatine Kinase MB Relative Index 1.3 % (0-4) Troponin I Quantitative < 0.017 ng/mL (0.000-0.055) < 0.017 ng/mL (0.000-0.055) < 0.017 ng/mL (0.000-0.055) WT-Euj-V-Type Natriuretic Peptide 678 pg/mL (0-449) Total Protein 6.6 g/dL (6.4-8.2) Albumin 2.8 g/dL (3.4-5.0) Albumin/Globulin Ratio 0.7 (1.0-1.7) Lipase 111 U/L (73-393) Thyroid Stimulating Hormone (TSH) 12.496 uIU/mL (0.358-3.74) Free Thyroxine 1.13 ng/dL (0.76-1.46) Free Triiodothyronine (T3) pg/mL 1.66 pg/mL (2.18-3.98) Glucose (Fingerstick) 179 mg/dL (70-99) Test 04/27/20 11:41 04/27/20 16:27 04/27/20 20:44 04/27/20 22:00 Glucose (Fingerstick) 136 mg/dL (70-99) 171 mg/dL (70-99) 179 mg/dL (70-99) Coronavirus (COVID-19)(PCR) Negative (NEGATIVE) Test 04/28/20 06:50 04/28/20 07:36 04/28/20 11:38 Triglycerides Level 113 mg/dL (0-150) Cholesterol Level 138 mg/dL (0-200) LDL Cholesterol, Calculated 81 mg/dL (0-100) VLDL Cholesterol, Calculated 23 mg/dL (0-40) Non-HDL Cholesterol Calculated 104 mg/dL (0-129) HDL Cholesterol 34 mg/dL (40-60) Cholesterol/HDL Ratio 4.1 Glucose (Fingerstick) 175 mg/dL (70-99) 272 mg/dL (70-99) Laboratory Tests Test 04/27/20 16:27 04/27/20 20:44 04/27/20 22:00 04/28/20 06:50 Glucose (Fingerstick) 171 mg/dL (70-99) 179 mg/dL (70-99) Coronavirus (COVID-19)(PCR) Negative (NEGATIVE) Triglycerides Level 113 mg/dL (0-150) Cholesterol Level 138 mg/dL (0-200) LDL Cholesterol, Calculated 81 mg/dL (0-100) VLDL Cholesterol, Calculated 23 mg/dL (0-40) Non-HDL Cholesterol Calculated 104 mg/dL (0-129) HDL Cholesterol 34 mg/dL (40-60) Cholesterol/HDL Ratio 4.1 Test 04/28/20 07:36 04/28/20 11:38 Glucose (Fingerstick) 175 mg/dL (70-99) 272 mg/dL (70-99) Medications Current Medications Aspirin (Annabella Aspirin) 325 mg 1X ONCE PO Last administered on 04/27/20at 05:10; Start 04/27/20 at 05:00; Stop 04/27/20 at 05:01; Status DC Sodium Chloride 1,000 ml @ 1,000 mls/hr 1X ONCE IV Last administered on 04/27/20at 05:10; Start 04/27/20 at 05:00; Stop 04/27/20 at 05:59; Status DC Atropine Sulfate (ATROPINE 0.5mg SYRINGE) 0.5 mg 1X ONCE IV ; Start 04/27/20 at 05:00; Stop 04/27/20 at 05:01; Status DC Atropine Sulfate (ATROPINE 1mg SYRINGE) 1 mg STK-MED ONCE .ROUTE ; Start 04/27/20 at 04:39; Stop 04/27/20 at 04:39; Status DC Atropine Sulfate (ATROPINE 0.5mg SYRINGE) 0.5 mg 1X ONCE IV ; Start 04/27/20 at 05:00; Stop 04/27/20 at 05:01; Status DC Ondansetron HCl (Zofran) 4 mg PRN Q8HRS PRN IV NAUSEA/VOMITING; Start 04/27/20 at 05:00; Stop 04/28/20 at 04:59; Status DC Insulin Human Lispro (HumaLOG) 0-5 UNITS TIDWMEALS SQ ; Start 04/27/20 at 08:00 Dextrose (Dextrose 50%-Water Syringe) 12.5 gm PRN Q15MIN PRN IV SEE COMMENTS; Start 04/27/20 at 05:00 Atropine Sulfate (ATROPINE 1mg SYRINGE) 0.5 mg PRN Q1HR PRN IV SEE COMMENTS Last administered on 04/27/20at 05:45; Start 04/27/20 at 05:00; Stop 04/27/20 at 10:00; Status DC Atropine Sulfate (ATROPINE 1mg SYRINGE) 1 mg PRN Q1HR PRN IV SEE COMMENTS; Start 04/27/20 at 05:15; Stop 04/27/20 at 10:00; Status DC Alprazolam (Xanax) 0.25 mg PRN Q8HRS PRN PO ANXIETY / AGITATION Last administered on 04/27/20at 09:05; Start 04/27/20 at 08:30 Dopamine HCl/ Dextrose 250 ml @ 6.881 mls/ hr CONT PRN IV SEE I/O RECORD Last administered on 04/27/20at 14:24; Start 04/27/20 at 13:45 Alprazolam (Xanax) 0.25 mg DAILY PO ; Start 04/28/20 at 09:00; Status UNV Atorvastatin Calcium (Lipitor) 40 mg QHS PO Last administered on 04/27/20at 20:52; Start 04/27/20 at 21:00 Levothyroxine Sodium (Synthroid) 112 mcg DAILY06 PO Last administered on 04/28/20at 06:00; Start 04/27/20 at 16:30 Sodium Chloride (Normal Saline Flush) 3 ml QSHIFT PRN IV AFTER MEDS AND BLOOD DRAWS; Start 04/27/20 at 16:30 Ondansetron HCl (Zofran) 4 mg PRN Q4HRS PRN IV NAUSEA/VOMITING; Start 04/27/20 at 16:30 Acetaminophen (Tylenol) 650 mg PRN Q4HRS PRN PO TEMP OVER 100.4F OR MILD PAIN; Start 04/27/20 at 16:30 Al Hydroxide/Mg Hydroxide (Mylanta Plus Xs) 30 ml PRN DAILY PRN PO HEARTBURN / GAS; Start 04/27/20 at 16:30 Sodium Monofluorophosphate (Fleet Adult) 133 ml PRN DAILY PRN [place] CONSTIPATION; Start 04/27/20 at 16:30 Docusate Sodium (Colace) 100 mg PRN BID PRN PO HARD STOOLS; Start 04/27/20 at 16:30 Albuterol Sulfate (Ventolin Neb Soln) 2.5 mg PRN Q4HRS PRN NEB SHORTNESS OF BREATH; Start 04/27/20 at 16:30 Guaifenesin (Robitussin) 200 mg PRN Q4HRS PRN PO COUGH; Start 04/27/20 at 16:30 Lorazepam (Ativan) 0.5 mg PRN Q4HRS PRN PO ANXIETY / AGITATION; Start 04/27/20 at 16:30; Status Cancel Enoxaparin Sodium (Lovenox 30mg Syringe) 30 mg Q24H SQ ; Start 04/27/20 at 17:00 Non-Formulary Medication 1 ea QHS SQ Last administered on 04/27/20at 21:38; Start 04/27/20 at 21:00 Active Scripts Active Meclizine Hcl 25 Mg Tablet 1 Tab PO TID Reported Amlodipine Besylate 10 Mg Tablet 10 Mg PO DAILY Tresiba (Insulin Degludec) 100 Unit/1 Ml Vial 100 Unit SQ DAILY Atorvastatin Calcium 40 Mg Tablet 1 Tab PO DAILY Levothyroxine Sodium 112 Mcg Tablet 1 Tab PO DAILY Xanax (Alprazolam) 0.25 Mg Tablet 1 Tab PO DAILY Vitals/I & O Vital Sign - Last 24 Hours 04/27/20 04/27/20 04/27/20 04/27/20 14:59 19:00 19:49 23:44 Temp 98.1 98.2 98.1 98.1 98.2 98.1 Pulse 35 35 33 Resp 16 18 19 B/P (MAP) 111/47 (68) 124/58 (80) 103/48 (66) Pulse Ox 98 93 97 O2 Delivery Room Air Room Air Room Air Room Air 04/28/20 04/28/20 04/28/20 04/28/20 03:14 07:00 08:00 10:57 Temp 98.1 98.5 98.3 98.1 98.5 98.3 Pulse 36 34 35 Resp 18 18 18 B/P (MAP) 115/60 (78) 131/50 (77) 134/68 (90) Pulse Ox 95 98 96 O2 Delivery Room Air Room Air Room Air Room Air Intake and Output 04/27/20 04/27/20 04/28/20 15:00 23:00 07:00 Intake Total 120 ml 320 ml 200 ml Output Total 120 ml Balance 0 ml 320 ml 200 ml DARRIUS PINEDA MD Apr 28, 2020 11:47
--- NOTE | 2020-04-28 13:17 | PDOC ---
PROGRESS NOTES Subjective Subjective No new complaints. Had to be started on intravenous dopamine overnight for bradycardia. Objective Objective Vital Signs Date Time Temp Pulse Resp B/P (MAP) Pulse Ox O2 Delivery O2 Flow Rate FiO2 04/28/20 10:57 98.3 35 18 134/68 (90) 96 Room Air 98.3 04/27/20 10:52 2.0 Intake and Output 04/28/20 07:00 Intake Total 640 ml Output Total 120 ml Balance 520 ml Intake Oral 640 ml Output Urine Total 120 ml # Voids 5 # Bowel Movements 1 Physical Exam Abdomen: Normal bowel sounds, Soft Heart: Other (Bradycardic) Extremities: No cyanosis, No edema General: Alert, Oriented X3, Cooperative, No acute distress HEENT: Atraumatic Lungs: Clear to auscultation Psych/Mental Status: Mood NL Assessment Assessment 1. 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 Blood pressure stable. Patient is currently on low-dose dopamine for chronotropic support. Plan for permanent pacemaker implantation tomorrow. Check 2D echo to assess LV systolic function. 2. Hypertension: Controlled 3. Hyperlipidemia: Continue statin therapy 4. Hypothyroidism with elevated TSH level. Treat per IM. 5. Diabetes mellitus type 2: Continue current medical regimen. Plan Plan of Care Problems Medical Problems: (1) Acute on chronic renal insufficiency Status: Acute (2) Severe sinus bradycardia Status: Acute Comment Review of Relevant I have reviewed the following items yelena (where applicable) has been applied. Labs Laboratory Tests Test 04/27/20 16:27 04/27/20 20:44 04/27/20 22:00 04/28/20 06:50 Glucose (Fingerstick) 171 mg/dL (70-99) 179 mg/dL (70-99) Coronavirus (COVID-19)(PCR) Negative (NEGATIVE) Triglycerides Level 113 mg/dL (0-150) Cholesterol Level 138 mg/dL (0-200) LDL Cholesterol, Calculated 81 mg/dL (0-100) VLDL Cholesterol, Calculated 23 mg/dL (0-40) Non-HDL Cholesterol Calculated 104 mg/dL (0-129) HDL Cholesterol 34 mg/dL (40-60) Cholesterol/HDL Ratio 4.1 Test 04/28/20 07:36 04/28/20 11:38 Glucose (Fingerstick) 175 mg/dL (70-99) 272 mg/dL (70-99) Medications Current Medications Acetaminophen (Tylenol) 650 mg PRN Q4HRS PRN PO TEMP OVER 100.4F OR MILD PAIN; Start 04/27/20 at 16:30 Al Hydroxide/Mg Hydroxide (Mylanta Plus Xs) 30 ml PRN DAILY PRN PO HEARTBURN / GAS; Start 04/27/20 at 16:30 Albuterol Sulfate (Ventolin Neb Soln) 2.5 mg PRN Q4HRS PRN NEB SHORTNESS OF BREATH; Start 04/27/20 at 16:30 Alprazolam (Xanax) 0.25 mg DAILY PO ; Start 04/28/20 at 09:00; Status UNV Atorvastatin Calcium (Lipitor) 40 mg QHS PO Last administered on 04/27/20at 20:52; Start 04/27/20 at 21:00 Docusate Sodium (Colace) 100 mg PRN BID PRN PO HARD STOOLS; Start 04/27/20 at 16:30 Dopamine HCl/ Dextrose 250 ml @ 6.881 mls/ hr CONT PRN IV SEE I/O RECORD Last administered on 04/27/20at 14:24; Start 04/27/20 at 13:45 Enoxaparin Sodium (Lovenox 30mg Syringe) 30 mg Q24H SQ ; Start 04/27/20 at 17:00 Guaifenesin (Robitussin) 200 mg PRN Q4HRS PRN PO COUGH; Start 04/27/20 at 16:30 Levothyroxine Sodium (Synthroid) 112 mcg DAILY06 PO Last administered on 04/28/20at 06:00; Start 04/27/20 at 16:30 Lorazepam (Ativan) 0.5 mg PRN Q4HRS PRN PO ANXIETY / AGITATION; Start 04/27/20 at 16:30; Status Cancel Non-Formulary Medication 1 ea QHS SQ Last administered on 04/27/20at 21:38; Start 04/27/20 at 21:00 Ondansetron HCl (Zofran) 4 mg PRN Q4HRS PRN IV NAUSEA/VOMITING; Start 04/27/20 at 16:30 Sodium Monofluorophosphate (Fleet Adult) 133 ml PRN DAILY PRN [place] CONSTIPATION; Start 04/27/20 at 16:30 Sodium Chloride (Normal Saline Flush) 3 ml QSHIFT PRN IV AFTER MEDS AND BLOOD DRAWS; Start 04/27/20 at 16:30 Vitals/I & O Vital Sign - Last 24 Hours 04/27/20 04/27/20 04/27/20 04/27/20 14:59 19:00 19:49 23:44 Temp 98.1 98.2 98.1 98.1 98.2 98.1 Pulse 35 35 33 Resp 16 18 19 B/P (MAP) 111/47 (68) 124/58 (80) 103/48 (66) Pulse Ox 98 93 97 O2 Delivery Room Air Room Air Room Air Room Air 04/28/20 04/28/20 04/28/20 04/28/20 03:14 07:00 08:00 10:57 Temp 98.1 98.5 98.3 98.1 98.5 98.3 Pulse 36 34 35 Resp 18 18 18 B/P (MAP) 115/60 (78) 131/50 (77) 134/68 (90) Pulse Ox 95 98 96 O2 Delivery Room Air Room Air Room Air Room Air Intake and Output 04/27/20 04/27/20 04/28/20 15:00 23:00 07:00 Intake Total 120 ml 320 ml 200 ml Output Total 120 ml Balance 0 ml 320 ml 200 ml CHRISTIANO DENT MD Apr 28, 2020 13:17
[2020-04-28] MEDS: ENOXAPARIN 30 MG/0.3 ML SYRINGE. SQ SCH (17:00)
[2020-04-28] MEDS: ATORVASTATIN CALCIUM 40 MG TABLET. PO SCH (20:59)
[2020-04-28] MEDS: TRESIBA SQ SCH (21:00)
[2020-04-29] VITALS (18 sets, daily range): BP systolic 115–163; BP diastolic 54–93
[2020-04-29] MEDS ORDERED: NITROGLYCERIN OINT 1 GM PACKET. TP ONE (01:00)
[2020-04-29] MEDS: ACETAMINOPHEN 325 MG TABLET. PO PRN ×2 (01:02→19:49)
--- NOTE | 2020-04-29 01:55 | NUR ---
Patient complaining of pain at IV site and that it was swollen. Immediately stopped Dopamine assessed IV site and slightly swollen. Contacted Dr. Hillman and DC IV and order for nitro paste to IV site and to start new IV in left arm.Elevated left arm and placed ice. Educated patient through language line and patient understanding of the IV placement and medication.
[2020-04-29 04:15] LABS: BASO % 1 % (0-3); EOS # 0.3 x10^3/uL (0.0-0.7); EOS % 4 % (0-3); HEMATOCRIT 28.7 % (36.0-47.0); HEMOGLOBIN 9.9 g/dL (12.0-15.5); LYMPH # 1.9 x10^3/uL (1.0-4.8); LYMPH % 25 % (24-48); MEAN CORPUSCULAR HEMOGLOBIN 30 pg (25-35); MEAN CORPUSCULAR HGB CONC 35 g/dL (31-37); MEAN CORPUSCULAR VOLUME 86 fL (79-100); MONO # 0.6 x10^3/uL (0.0-1.1); MONO % 8 % (0-9); NEUT # 4.9 x10^3/uL (1.8-7.7); NEUT % 63 % (31-73); PLATELET COUNT 234 x10^3/uL (140-400); RED BLOOD COUNT 3.33 x10^6/uL (3.50-5.40); RED CELL DISTRIBUTION WIDTH 12.9 % (11.5-14.5); WHITE BLOOD COUNT 7.7 x10^3/uL (4.0-11.0)
[2020-04-29 04:32] LABS: ALBUMIN 2.6 g/dL (3.4-5.0); CALCIUM 8.4 mg/dL (8.5-10.1); CREATININE 1.7 mg/dL (0.6-1.0); GFR 29.1; PHOSPHORUS 3.4 mg/dL (2.6-4.7); POTASSIUM 4.1 mmol/L (3.5-5.1)
[2020-04-29] MEDS: LEVOTHYROXINE 112 MCG TABLET PO SCH (05:00)
[2020-04-29] MEDS ORDERED: ceFAZolin SODIUM IV Push 1 GM VIAL. IVP ONE ×2 (06:00→12:27)
--- NOTE | 2020-04-29 06:21 | EKG ---
[facility] [address] [place] [address] Test Date: 2020-04-27 Test Time: 04:37:23 Pat Name: NAN BEAULIEUDepartment: Room: 261 1 Gender: F Asset Protection Specialist: : [id number] Requested By: CALEB PAREKH Order Number: [id number] Reading MD: Dakota Cotton MD Measurements Intervals [place] Rate: 39 P: NC: QRS: 10 QRSD: 82 T: 25 QT: 462 QTc: 373 Interpretive Statements SR 2:1 AVB CANNOT RULE OUT U WAVES WITH SEVERE ELECTROLYTE DISTURBANCE, CORRELATE CLINICALLY Electronically Signed On 04-29-2020 13:44:33 CDT by Dakota Cotton MD
[2020-04-29] MEDS: INSULIN LISPRO 300 UNITS/3 ML VIAL. SQ SCH ×3 (08:00→18:13)
--- NOTE | 2020-04-29 09:35 | PDOC ---
PROGRESS NOTES Chief Complaint Chief Complaint A/P: Sinus bradycardia on norvasc 10 mg po daily on hold Hypothyroid state on replacement Acute on chronic renal insufficiency 2 cm right retrocardiac nodule is likely a normal vessel. Correlation with an upright 2 view radiograph is suggested when feasible. Hyperinflation. Correlate for deep respiratory effort versus air ADMITTED cvc bed hold norvasc CARDIOLOGY CONSULT dvt prophylaxis recheck tsh in 2 weeks D/W RN Justicifation of Admission Dx: Justicifation of Admission Dx: Justifications for Admission: Justification of Admission Dx: Yes CHF: Hemodynamic Instability Comments: BRADYCARDIA OF CONCERN FOR SINUS NODE DISEASE History of Present Illness History of Present Illness Ms Miller is a 79yo F w/ PMHx DM2 admitted initially for very high blood sugar of 531. EMS was called and she was found to be severely bradycardic and brought to ED. Upon examination, telemetry showed high-grade second-degree AV block with heart rate in 30, admitted for further care. 04/27 // HR 35 ON MY VISIT 04/28 started on intravenous dopamine overnight for bradycardia. Overnight bradycardic. She felt "terrible" on dopamine. No CP or S OB. Discussed with daughter bedside plans for pacemaker insertion today. Vitals Vitals Vital Signs Date Time Temp Pulse Resp B/P (MAP) Pulse Ox O2 Delivery O2 Flow Rate FiO2 04/29/20 08:38 35 127/57 (80) 04/29/20 08:15 Room Air 04/29/20 07:30 98.3 18 97 98.3 04/29/20 02:40 2.0 Physical Exam General: Alert, Oriented X3, Cooperative, No acute distress Heart: Regular rate, Other (Bradycardic) Lungs: Clear Abdomen: Normal bowel sounds, Soft Extremities: No clubbing, No cyanosis, No edema Skin: No significant lesion Labs LABS Laboratory Tests Test 04/28/20 11:38 04/28/20 16:26 04/28/20 20:21 04/29/20 04:05 Glucose (Fingerstick) 272 mg/dL (70-99) 167 mg/dL (70-99) 244 mg/dL (70-99) White Blood Count 7.7 x10^3/uL (4.0-11.0) Red Blood Count 3.33 x10^6/uL (3.50-5.40) Hemoglobin 9.9 g/dL (12.0-15.5) Hematocrit 28.7 % (36.0-47.0) Mean Corpuscular Volume 86 fL (79-100) Mean Corpuscular Hemoglobin 30 pg (25-35) Mean Corpuscular Hemoglobin Concent 35 g/dL (31-37) Red Cell Distribution Width 12.9 % (11.5-14.5) Platelet Count 234 x10^3/uL (140-400) Neutrophils (%) (Auto) 63 % (31-73) Lymphocytes (%) (Auto) 25 % (24-48) Monocytes (%) (Auto) 8 % (0-9) Eosinophils (%) (Auto) 4 % (0-3) Basophils (%) (Auto) 1 % (0-3) Neutrophils # (Auto) 4.9 x10^3/uL (1.8-7.7) Lymphocytes # (Auto) 1.9 x10^3/uL (1.0-4.8) Monocytes # (Auto) 0.6 x10^3/uL (0.0-1.1) Eosinophils # (Auto) 0.3 x10^3/uL (0.0-0.7) Basophils # (Auto) 0.0 x10^3/uL (0.0-0.2) Sodium Level 139 mmol/L (136-145) Potassium Level 4.1 mmol/L (3.5-5.1) Chloride Level 107 mmol/L (98-107) Carbon Dioxide Level 25 mmol/L (21-32) Anion Gap 7 (6-14) Blood Urea Nitrogen 40 mg/dL (7-20) Creatinine 1.7 mg/dL (0.6-1.0) Estimated GFR (Cockcroft-Gault) 29.1 Glucose Level 171 mg/dL (70-99) Calcium Level 8.4 mg/dL (8.5-10.1) Phosphorus Level 3.4 mg/dL (2.6-4.7) Albumin 2.6 g/dL (3.4-5.0) Test 04/29/20 08:33 Glucose (Fingerstick) 154 mg/dL (70-99) Assessment and Plan Assessmemt and Plan Problems Medical Problems: (1) Acute on chronic renal insufficiency Status: Acute (2) Severe sinus bradycardia Status: Acute Comment Review of Relevant I have reviewed the following items yelena (where applicable) has been applied. Labs Laboratory Tests Test 04/27/20 10:54 04/27/20 11:41 04/27/20 16:27 04/27/20 20:44 Troponin I Quantitative < 0.017 ng/mL (0.000-0.055) Glucose (Fingerstick) 136 mg/dL (70-99) 171 mg/dL (70-99) 179 mg/dL (70-99) Test 04/27/20 22:00 04/28/20 06:50 04/28/20 07:36 04/28/20 11:38 Coronavirus (COVID-19)(PCR) Negative (NEGATIVE) Triglycerides Level 113 mg/dL (0-150) Cholesterol Level 138 mg/dL (0-200) LDL Cholesterol, Calculated 81 mg/dL (0-100) VLDL Cholesterol, Calculated 23 mg/dL (0-40) Non-HDL Cholesterol Calculated 104 mg/dL (0-129) HDL Cholesterol 34 mg/dL (40-60) Cholesterol/HDL Ratio 4.1 Glucose (Fingerstick) 175 mg/dL (70-99) 272 mg/dL (70-99) Test 04/28/20 16:26 04/28/20 20:21 04/29/20 04:05 04/29/20 08:33 Glucose (Fingerstick) 167 mg/dL (70-99) 244 mg/dL (70-99) 154 mg/dL (70-99) White Blood Count 7.7 x10^3/uL (4.0-11.0) Red Blood Count 3.33 x10^6/uL (3.50-5.40) Hemoglobin 9.9 g/dL (12.0-15.5) Hematocrit 28.7 % (36.0-47.0) Mean Corpuscular Volume 86 fL (79-100) Mean Corpuscular Hemoglobin 30 pg (25-35) Mean Corpuscular Hemoglobin Concent 35 g/dL (31-37) Red Cell Distribution Width 12.9 % (11.5-14.5) Platelet Count 234 x10^3/uL (140-400) Neutrophils (%) (Auto) 63 % (31-73) Lymphocytes (%) (Auto) 25 % (24-48) Monocytes (%) (Auto) 8 % (0-9) Eosinophils (%) (Auto) 4 % (0-3) Basophils (%) (Auto) 1 % (0-3) Neutrophils # (Auto) 4.9 x10^3/uL (1.8-7.7) Lymphocytes # (Auto) 1.9 x10^3/uL (1.0-4.8) Monocytes # (Auto) 0.6 x10^3/uL (0.0-1.1) Eosinophils # (Auto) 0.3 x10^3/uL (0.0-0.7) Basophils # (Auto) 0.0 x10^3/uL (0.0-0.2) Sodium Level 139 mmol/L (136-145) Potassium Level 4.1 mmol/L (3.5-5.1) Chloride Level 107 mmol/L (98-107) Carbon Dioxide Level 25 mmol/L (21-32) Anion Gap 7 (6-14) Blood Urea Nitrogen 40 mg/dL (7-20) Creatinine 1.7 mg/dL (0.6-1.0) Estimated GFR (Cockcroft-Gault) 29.1 Glucose Level 171 mg/dL (70-99) Calcium Level 8.4 mg/dL (8.5-10.1) Phosphorus Level 3.4 mg/dL (2.6-4.7) Albumin 2.6 g/dL (3.4-5.0) Laboratory Tests Test 04/28/20 11:38 04/28/20 16:26 04/28/20 20:21 04/29/20 04:05 Glucose (Fingerstick) 272 mg/dL (70-99) 167 mg/dL (70-99) 244 mg/dL (70-99) White Blood Count 7.7 x10^3/uL (4.0-11.0) Red Blood Count 3.33 x10^6/uL (3.50-5.40) Hemoglobin 9.9 g/dL (12.0-15.5) Hematocrit 28.7 % (36.0-47.0) Mean Corpuscular Volume 86 fL (79-100) Mean Corpuscular Hemoglobin 30 pg (25-35) Mean Corpuscular Hemoglobin Concent 35 g/dL (31-37) Red Cell Distribution Width 12.9 % (11.5-14.5) Platelet Count 234 x10^3/uL (140-400) Neutrophils (%) (Auto) 63 % (31-73) Lymphocytes (%) (Auto) 25 % (24-48) Monocytes (%) (Auto) 8 % (0-9) Eosinophils (%) (Auto) 4 % (0-3) Basophils (%) (Auto) 1 % (0-3) Neutrophils # (Auto) 4.9 x10^3/uL (1.8-7.7) Lymphocytes # (Auto) 1.9 x10^3/uL (1.0-4.8) Monocytes # (Auto) 0.6 x10^3/uL (0.0-1.1) Eosinophils # (Auto) 0.3 x10^3/uL (0.0-0.7) Basophils # (Auto) 0.0 x10^3/uL (0.0-0.2) Sodium Level 139 mmol/L (136-145) Potassium Level 4.1 mmol/L (3.5-5.1) Chloride Level 107 mmol/L (98-107) Carbon Dioxide Level 25 mmol/L (21-32) Anion Gap 7 (6-14) Blood Urea Nitrogen 40 mg/dL (7-20) Creatinine 1.7 mg/dL (0.6-1.0) Estimated GFR (Cockcroft-Gault) 29.1 Glucose Level 171 mg/dL (70-99) Calcium Level 8.4 mg/dL (8.5-10.1) Phosphorus Level 3.4 mg/dL (2.6-4.7) Albumin 2.6 g/dL (3.4-5.0) Test 04/29/20 08:33 Glucose (Fingerstick) 154 mg/dL (70-99) Medications Current Medications Aspirin (Annabella Aspirin) 325 mg 1X ONCE PO Last administered on 04/27/20at 05:10; Start 04/27/20 at 05:00; Stop 04/27/20 at 05:01; Status DC Sodium Chloride 1,000 ml @ 1,000 mls/hr 1X ONCE IV Last administered on 04/27/20at 05:10; Start 04/27/20 at 05:00; Stop 04/27/20 at 05:59; Status DC Atropine Sulfate (ATROPINE 0.5mg SYRINGE) 0.5 mg 1X ONCE IV ; Start 04/27/20 at 05:00; Stop 04/27/20 at 05:01; Status DC Atropine Sulfate (ATROPINE 1mg SYRINGE) 1 mg STK-MED ONCE .ROUTE ; Start 04/27/20 at 04:39; Stop 04/27/20 at 04:39; Status DC Atropine Sulfate (ATROPINE 0.5mg SYRINGE) 0.5 mg 1X ONCE IV ; Start 04/27/20 at 05:00; Stop 04/27/20 at 05:01; Status DC Ondansetron HCl (Zofran) 4 mg PRN Q8HRS PRN IV NAUSEA/VOMITING; Start 04/27/20 at 05:00; Stop 04/28/20 at 04:59; Status DC Insulin Human Lispro (HumaLOG) 0-5 UNITS TIDWMEALS SQ Last administered on 04/28/20at 12:50; Start 04/27/20 at 08:00 Dextrose (Dextrose 50%-Water Syringe) 12.5 gm PRN Q15MIN PRN IV SEE COMMENTS; Start 04/27/20 at 05:00 Atropine Sulfate (ATROPINE 1mg SYRINGE) 0.5 mg PRN Q1HR PRN IV SEE COMMENTS Last administered on 04/27/20at 05:45; Start 04/27/20 at 05:00; Stop 04/27/20 at 10:00; Status DC Atropine Sulfate (ATROPINE 1mg SYRINGE) 1 mg PRN Q1HR PRN IV SEE COMMENTS; Start 04/27/20 at 05:15; Stop 04/27/20 at 10:00; Status DC Alprazolam (Xanax) 0.25 mg PRN Q8HRS PRN PO ANXIETY / AGITATION Last administered on 04/27/20at 09:05; Start 04/27/20 at 08:30 Dopamine HCl/ Dextrose 250 ml @ 6.881 mls/ hr CONT PRN IV SEE I/O RECORD Last administered on 04/29/20at 04:58; Start 04/27/20 at 13:45 Alprazolam (Xanax) 0.25 mg DAILY PO ; Start 04/28/20 at 09:00; Status UNV Atorvastatin Calcium (Lipitor) 40 mg QHS PO Last administered on 04/28/20at 20:59; Start 04/27/20 at 21:00 Levothyroxine Sodium (Synthroid) 112 mcg DAILY06 PO Last administered on 04/28/20at 06:00; Start 04/27/20 at 16:30 Sodium Chloride (Normal Saline Flush) 3 ml QSHIFT PRN IV AFTER MEDS AND BLOOD DRAWS; Start 04/27/20 at 16:30 Ondansetron HCl (Zofran) 4 mg PRN Q4HRS PRN IV NAUSEA/VOMITING; Start 04/27/20 at 16:30 Acetaminophen (Tylenol) 650 mg PRN Q4HRS PRN PO TEMP OVER 100.4F OR MILD PAIN Last administered on 04/29/20at 01:02; Start 04/27/20 at 16:30 Al Hydroxide/Mg Hydroxide (Mylanta Plus Xs) 30 ml PRN DAILY PRN PO HEARTBURN / GAS; Start 04/27/20 at 16:30 Sodium Monofluorophosphate (Fleet Adult) 133 ml PRN DAILY PRN [place] CONSTIPATION; Start 04/27/20 at 16:30 Docusate Sodium (Colace) 100 mg PRN BID PRN PO HARD STOOLS; Start 04/27/20 at 16:30 Albuterol Sulfate (Ventolin Neb Soln) 2.5 mg PRN Q4HRS PRN NEB SHORTNESS OF BREATH; Start 04/27/20 at 16:30 Guaifenesin (Robitussin) 200 mg PRN Q4HRS PRN PO COUGH; Start 04/27/20 at 16:30 Lorazepam (Ativan) 0.5 mg PRN Q4HRS PRN PO ANXIETY / AGITATION; Start 04/27/20 at 16:30; Status Cancel Enoxaparin Sodium (Lovenox 30mg Syringe) 30 mg Q24H SQ Last administered on 04/28/20at 17:00; Start 04/27/20 at 17:00 Non-Formulary Medication 1 ea QHS SQ Last administered on 04/28/20at 21:00; Start 04/27/20 at 21:00 Cefazolin Sodium (Ancef) 1 gm 1X ONCE IVP ; Start 04/29/20 at 06:00; Stop 04/29/20 at 06:01; Status DC Nitroglycerin (Nitro-Bid Oint) 0.5 inch 1X ONCE TP Last administered on 04/29/20at 00:52; Start 04/29/20 at 01:00; Stop 04/29/20 at 01:01; Status DC Active Scripts Active Meclizine Hcl 25 Mg Tablet 1 Tab PO TID Reported Amlodipine Besylate 10 Mg Tablet 10 Mg PO DAILY Tresiba (Insulin Degludec) 100 Unit/1 Ml Vial 100 Unit SQ DAILY Atorvastatin Calcium 40 Mg Tablet 1 Tab PO DAILY Levothyroxine Sodium 112 Mcg Tablet 1 Tab PO DAILY Xanax (Alprazolam) 0.25 Mg Tablet 1 Tab PO DAILY Vitals/I & O Vital Sign - Last 24 Hours 04/28/20 04/28/20 04/28/20 04/28/20 10:30 10:57 11:30 12:30 Temp 98.3 98.3 Pulse 35 35 34 37 Resp 18 B/P (MAP) 120/54 (76) 134/68 (90) 129/50 (76) 142/75 (97) Pulse Ox 96 O2 Delivery Room Air 04/28/20 04/28/20 04/28/20 04/28/20 14:25 14:34 14:43 15:34 Temp 98.0 98.0 Pulse 36 36 36 36 Resp 18 B/P (MAP) 136/67 (90) 153/79 (103) 153/79 (103) 153/56 (88) Pulse Ox 96 O2 Delivery Room Air 04/28/20 04/28/20 04/28/20 04/28/20 16:34 18:33 19:40 23:00 Temp 98.3 98.3 Pulse 33 36 38 Resp 19 B/P (MAP) 139/56 (83) 124/51 (75) 125/81 (96) O2 Delivery Room Air Nasal Cannula O2 Flow Rate 2.0 2.0 04/29/20 04/29/20 04/29/20 04/29/20 00:52 02:40 07:30 08:15 Temp 98.2 98.3 98.2 98.3 Pulse 35 38 39 Resp 19 18 B/P (MAP) 162/52 146/74 (98) 115/58 (77) Pulse Ox 97 O2 Delivery Nasal Cannula Room Air Room Air O2 Flow Rate 2.0 6/22/20 08:38 Pulse 35 B/P (MAP) 127/57 (80) Intake and Output 04/28/20 04/28/20 04/29/20 15:00 23:00 07:00 Intake Total 480 ml 120 ml 100 ml Balance 480 ml 120 ml 100 ml HONEY ASHLEY MD Apr 29, 2020 09:34
--- NOTE | 2020-04-29 10:34 | NUR ---
SS following for discharge planning. SS reviewed pt chart and discussed with pt RN. Pt is from home with spouse and is currently on room air. PT/OT evaluated and recommended home with home healthcare. Pt is COVID19 negative. SS will continue to follow for discharge planning.
[2020-04-29] MEDS ORDERED: BACITRACIN 50,000 UNIT in IV NORMAL SALINE 250ML 250 ML IRR ONE (11:45)
[2020-04-29] MEDS ORDERED: fentaNYL PF VIAL 100 MCG/2 ML VIAL ONE (12:26)
[2020-04-29] MEDS ORDERED: MIDAZOLAM HCL/PF 5 MG/5 ML VIAL. ONE (12:26)
--- NOTE | 2020-04-29 12:28 | PDOC2 ---
CONSULT Date of Consult Date of Consult DATE: 04/29/20 TIME: 12:22 Reason for Consult Reason for Consult: ALEENA Referring Physician Referring Physician: VIVIAN History of Present Illness Reason for Visit: THIS IS A 79 YR OLD WITH FATIGUE. NOTED TO HAVE BRADYCARDIA AND HIGH BG OF 531. HR OF 30-40. CURRENTLY UNDERGOING CARDIOLOGY EVALUATION. HER CR IS 1.7. HAS BEEN IN THE 1.3 RANGE. HAS CKD STAGE 3. HEMODYNAMICALLY STABLE. ELECTROLYTES HAVE BEEN STABLE. HAS BEEN ON DOP GTT OVERNIGHT FOR HER BRADYCARDIA. NO NEG CHRONOTROPIC AGENTS NOTED. Past Medical History Cardiovascular: No pertinent hx Hepatobiliary: No pertinent hx Psych: No pertinent hx Infectious disease: Bacterial vaginosis Renal/: Chronic renal insuff Endocrine: Diabetes Family History Family History: Diabetes, Hypertension Social History No ALCOHOL: none Drugs: None Lives: with Family Current Problem List Problem List Problems Medical Problems: (1) Acute on chronic renal insufficiency Status: Acute (2) Severe sinus bradycardia Status: Acute Current Medications Current Medications Current Medications Aspirin (Annabella Aspirin) 325 mg 1X ONCE PO Last administered on 04/27/20at 05:10; Start 04/27/20 at 05:00; Stop 04/27/20 at 05:01; Status DC Sodium Chloride 1,000 ml @ 1,000 mls/hr 1X ONCE IV Last administered on 04/27/20at 05:10; Start 04/27/20 at 05:00; Stop 04/27/20 at 05:59; Status DC Atropine Sulfate (ATROPINE 0.5mg SYRINGE) 0.5 mg 1X ONCE IV ; Start 04/27/20 at 05:00; Stop 04/27/20 at 05:01; Status DC Atropine Sulfate (ATROPINE 1mg SYRINGE) 1 mg STK-MED ONCE .ROUTE ; Start 04/27/20 at 04:39; Stop 04/27/20 at 04:39; Status DC Atropine Sulfate (ATROPINE 0.5mg SYRINGE) 0.5 mg 1X ONCE IV ; Start 04/27/20 at 05:00; Stop 04/27/20 at 05:01; Status DC Ondansetron HCl (Zofran) 4 mg PRN Q8HRS PRN IV NAUSEA/VOMITING; Start 04/27/20 at 05:00; Stop 04/28/20 at 04:59; Status DC Insulin Human Lispro (HumaLOG) 0-5 UNITS TIDWMEALS SQ Last administered on 04/28/20at 12:50; Start 04/27/20 at 08:00 Dextrose (Dextrose 50%-Water Syringe) 12.5 gm PRN Q15MIN PRN IV SEE COMMENTS; Start 04/27/20 at 05:00 Atropine Sulfate (ATROPINE 1mg SYRINGE) 0.5 mg PRN Q1HR PRN IV SEE COMMENTS Last administered on 04/27/20at 05:45; Start 04/27/20 at 05:00; Stop 04/27/20 at 10:00; Status DC Atropine Sulfate (ATROPINE 1mg SYRINGE) 1 mg PRN Q1HR PRN IV SEE COMMENTS; Start 04/27/20 at 05:15; Stop 04/27/20 at 10:00; Status DC Alprazolam (Xanax) 0.25 mg PRN Q8HRS PRN PO ANXIETY / AGITATION Last administered on 04/27/20at 09:05; Start 04/27/20 at 08:30 Dopamine HCl/ Dextrose 250 ml @ 6.881 mls/ hr CONT PRN IV SEE I/O RECORD Last administered on 04/29/20at 04:58; Start 04/27/20 at 13:45 Alprazolam (Xanax) 0.25 mg DAILY PO ; Start 04/28/20 at 09:00; Status UNV Atorvastatin Calcium (Lipitor) 40 mg QHS PO Last administered on 04/28/20at 20:59; Start 04/27/20 at 21:00 Levothyroxine Sodium (Synthroid) 112 mcg DAILY06 PO Last administered on 04/28/20at 06:00; Start 04/27/20 at 16:30 Sodium Chloride (Normal Saline Flush) 3 ml QSHIFT PRN IV AFTER MEDS AND BLOOD DRAWS; Start 04/27/20 at 16:30 Ondansetron HCl (Zofran) 4 mg PRN Q4HRS PRN IV NAUSEA/VOMITING; Start 04/27/20 at 16:30 Acetaminophen (Tylenol) 650 mg PRN Q4HRS PRN PO TEMP OVER 100.4F OR MILD PAIN Last administered on 04/29/20at 01:02; Start 04/27/20 at 16:30 Al Hydroxide/Mg Hydroxide (Mylanta Plus Xs) 30 ml PRN DAILY PRN PO HEARTBURN / GAS; Start 04/27/20 at 16:30 Sodium Monofluorophosphate (Fleet Adult) 133 ml PRN DAILY PRN NE CONSTIPATION; Start 04/27/20 at 16:30 Docusate Sodium (Colace) 100 mg PRN BID PRN PO HARD STOOLS; Start 04/27/20 at 16:30 Albuterol Sulfate (Ventolin Neb Soln) 2.5 mg PRN Q4HRS PRN NEB SHORTNESS OF BREATH; Start 04/27/20 at 16:30 Guaifenesin (Robitussin) 200 mg PRN Q4HRS PRN PO COUGH; Start 04/27/20 at 16:30 Lorazepam (Ativan) 0.5 mg PRN Q4HRS PRN PO ANXIETY / AGITATION; Start 04/27/20 at 16:30; Status Cancel Enoxaparin Sodium (Lovenox 30mg Syringe) 30 mg Q24H SQ Last administered on 04/28/20at 17:00; Start 04/27/20 at 17:00 Non-Formulary Medication 1 ea QHS SQ Last administered on 04/28/20at 21:00; Start 04/27/20 at 21:00 Cefazolin Sodium (Ancef) 1 gm 1X ONCE IVP ; Start 04/29/20 at 06:00; Stop 04/29/20 at 06:01; Status DC Nitroglycerin (Nitro-Bid Oint) 0.5 inch 1X ONCE TP Last administered on 04/29/20at 00:52; Start 04/29/20 at 01:00; Stop 04/29/20 at 01:01; Status DC Bacitracin 99667 unit/Sodium Chloride 250 ml @ 0 mls/hr 1X ONCE IRR ; Start 04/29/20 at 11:45; Stop 04/29/20 at 11:46; Status DC Active Scripts Active Meclizine Hcl 25 Mg Tablet 1 Tab PO TID Reported Amlodipine Besylate 10 Mg Tablet 10 Mg PO DAILY Tresiba (Insulin Degludec) 100 Unit/1 Ml Vial 100 Unit SQ DAILY Atorvastatin Calcium 40 Mg Tablet 1 Tab PO DAILY Levothyroxine Sodium 112 Mcg Tablet 1 Tab PO DAILY Xanax (Alprazolam) 0.25 Mg Tablet 1 Tab PO DAILY Allergies Allergies: Coded Allergies: No Known Drug Allergies (Unverified , 03/09/19) ROS General: YES: Fatigue, Malaise PSYCHOLOGICAL ROS: YES: Anxiety, Depression Eyes: Yes Decreased vision ALLERGY AND IMMUNOLOGY: YES: Seasonal Allergies Respiratory: YES: Cough Cardiovascular: yes Orthopnea Gastrointestinal: Yes Constipation Genitourinary: YES Other (NOCTURIA) Physical Exam General: Alert, Oriented X3, Cooperative, No acute distress HEENT: Atraumatic, PERRLA, EOMI, Mucous membr. moist/pink Lungs: Clear to auscultation Heart: Other (BRADYCARDIA) Abdomen: Normal bowel sounds Extremities: No clubbing Skin: No breakdown Neuro: Normal speech, Cranial nerves 3-12 NL Psych/Mental Status: Mental status NL, Mood NL MUSCULOSKELETAL: No joint tenderness, No deformity Vitals VITALS Vital Signs Date Time Temp Pulse Resp B/P (MAP) Pulse Ox O2 Delivery O2 Flow Rate FiO2 04/29/20 11:39 38 160/77 (104) 04/29/20 11:00 98.3 16 98 Room Air 98.3 04/29/20 02:40 2.0 Labs Labs Laboratory Tests Test 04/27/20 16:27 04/27/20 20:44 04/27/20 22:00 04/28/20 06:50 Glucose (Fingerstick) 171 mg/dL (70-99) 179 mg/dL (70-99) Coronavirus (COVID-19)(PCR) Negative (NEGATIVE) Triglycerides Level 113 mg/dL (0-150) Cholesterol Level 138 mg/dL (0-200) LDL Cholesterol, Calculated 81 mg/dL (0-100) VLDL Cholesterol, Calculated 23 mg/dL (0-40) Non-HDL Cholesterol Calculated 104 mg/dL (0-129) HDL Cholesterol 34 mg/dL (40-60) Cholesterol/HDL Ratio 4.1 Test 04/28/20 07:36 04/28/20 11:38 04/28/20 16:26 04/28/20 20:21 Glucose (Fingerstick) 175 mg/dL (70-99) 272 mg/dL (70-99) 167 mg/dL (70-99) 244 mg/dL (70-99) Test 04/29/20 04:05 04/29/20 08:33 04/29/20 12:07 White Blood Count 7.7 x10^3/uL (4.0-11.0) Red Blood Count 3.33 x10^6/uL (3.50-5.40) Hemoglobin 9.9 g/dL (12.0-15.5) Hematocrit 28.7 % (36.0-47.0) Mean Corpuscular Volume 86 fL (79-100) Mean Corpuscular Hemoglobin 30 pg (25-35) Mean Corpuscular Hemoglobin Concent 35 g/dL (31-37) Red Cell Distribution Width 12.9 % (11.5-14.5) Platelet Count 234 x10^3/uL (140-400) Neutrophils (%) (Auto) 63 % (31-73) Lymphocytes (%) (Auto) 25 % (24-48) Monocytes (%) (Auto) 8 % (0-9) Eosinophils (%) (Auto) 4 % (0-3) Basophils (%) (Auto) 1 % (0-3) Neutrophils # (Auto) 4.9 x10^3/uL (1.8-7.7) Lymphocytes # (Auto) 1.9 x10^3/uL (1.0-4.8) Monocytes # (Auto) 0.6 x10^3/uL (0.0-1.1) Eosinophils # (Auto) 0.3 x10^3/uL (0.0-0.7) Basophils # (Auto) 0.0 x10^3/uL (0.0-0.2) Sodium Level 139 mmol/L (136-145) Potassium Level 4.1 mmol/L (3.5-5.1) Chloride Level 107 mmol/L (98-107) Carbon Dioxide Level 25 mmol/L (21-32) Anion Gap 7 (6-14) Blood Urea Nitrogen 40 mg/dL (7-20) Creatinine 1.7 mg/dL (0.6-1.0) Estimated GFR (Cockcroft-Gault) 29.1 Glucose Level 171 mg/dL (70-99) Calcium Level 8.4 mg/dL (8.5-10.1) Phosphorus Level 3.4 mg/dL (2.6-4.7) Albumin 2.6 g/dL (3.4-5.0) Glucose (Fingerstick) 154 mg/dL (70-99) 135 mg/dL (70-99) Laboratory Tests Test 6/21/20 16:26 04/28/20 20:21 04/29/20 04:05 04/29/20 08:33 Glucose (Fingerstick) 167 mg/dL (70-99) 244 mg/dL (70-99) 154 mg/dL (70-99) White Blood Count 7.7 x10^3/uL (4.0-11.0) Red Blood Count 3.33 x10^6/uL (3.50-5.40) Hemoglobin 9.9 g/dL (12.0-15.5) Hematocrit 28.7 % (36.0-47.0) Mean Corpuscular Volume 86 fL (79-100) Mean Corpuscular Hemoglobin 30 pg (25-35) Mean Corpuscular Hemoglobin Concent 35 g/dL (31-37) Red Cell Distribution Width 12.9 % (11.5-14.5) Platelet Count 234 x10^3/uL (140-400) Neutrophils (%) (Auto) 63 % (31-73) Lymphocytes (%) (Auto) 25 % (24-48) Monocytes (%) (Auto) 8 % (0-9) Eosinophils (%) (Auto) 4 % (0-3) Basophils (%) (Auto) 1 % (0-3) Neutrophils # (Auto) 4.9 x10^3/uL (1.8-7.7) Lymphocytes # (Auto) 1.9 x10^3/uL (1.0-4.8) Monocytes # (Auto) 0.6 x10^3/uL (0.0-1.1) Eosinophils # (Auto) 0.3 x10^3/uL (0.0-0.7) Basophils # (Auto) 0.0 x10^3/uL (0.0-0.2) Sodium Level 139 mmol/L (136-145) Potassium Level 4.1 mmol/L (3.5-5.1) Chloride Level 107 mmol/L (98-107) Carbon Dioxide Level 25 mmol/L (21-32) Anion Gap 7 (6-14) Blood Urea Nitrogen 40 mg/dL (7-20) Creatinine 1.7 mg/dL (0.6-1.0) Estimated GFR (Cockcroft-Gault) 29.1 Glucose Level 171 mg/dL (70-99) Calcium Level 8.4 mg/dL (8.5-10.1) Phosphorus Level 3.4 mg/dL (2.6-4.7) Albumin 2.6 g/dL (3.4-5.0) Test 04/29/20 12:07 Glucose (Fingerstick) 135 mg/dL (70-99) Assessment/Plan Assessment/Plan IMP ALEENA WITH CR OF 1.7 CKD STAGE 3 WITH BASELINE OF 1.3 SEVERE BRADYCARDIA HYPOTHYROID PLAN CARDIOLOGY EVAL AND TX PROB NEED PPM HYDRATION IF NOT EATING WELL WILL FOLLOW SEJAL DAVIS MD Apr 29, 2020 12:28
[2020-04-29] MEDS ORDERED: LIDOCAINE 2%/EPI 1:100,000 20 ML VIAL. ONE (12:32)
[2020-04-29] MEDS ORDERED: fentaNYL PF VIAL 100 MCG/2 ML VIAL IV ONE (13:00)
[2020-04-29] MEDS ORDERED: LIDOCAINE 2%/EPI 1:100,000 20 ML VIAL. IJ ONE (13:00)
[2020-04-29] MEDS ORDERED: MIDAZOLAM HCL/PF 5 MG/5 ML VIAL. IV ONE (13:00)
[2020-04-29] MEDS ORDERED: IODIXANOL 320 MG/ML 100 ML VIAL. ONE (13:25)
[2020-04-29] MEDS ORDERED: CONTRAST GIVEN. MC PRN (13:30)
[2020-04-29] MEDS ORDERED: IODIXANOL 320 MG/ML 100 ML VIAL. IV ONE (13:30)
--- NOTE | 2020-04-29 14:25 | CARD ---
MR#: [id number] Date of Study: 04/29/2020 Ordering Physician: CHRISTIANO HILLMAN, Referring Physician: CHRISTIANO HILLMAN, Tech: APPROVED REPORT PROCEDURES Implantation of Medtronic dual-chamber permanent pacemaker [place] TIME: 4.2 MINS DOSE: 10 GYCM2 CONTRAST: 15 ML MODERATE SEDATION: 57 MINS INDICATIONS High-grade second-degree AV block and severe symptomatic bradycardia PROCEDURE After explaining the risks, benefits, and alternative options, informed consent was obtained from the patient. The patient was brought to the cardiac catheterization lab and the left chest and shoulder were prepp ed and draped in a sterile manner. 30 cc of 2% lidocaine was infiltrated into the skin and subcutaneous tissues for local anesthesia. A n incision was made over the left infraclavicular fossa and using blunt dissection and cautery a pock et was created. Venous access was obtained in the left subclavian vein with the help of a venogram a fter fluoroscopic guidance failed and 9 and 7 [place] sheaths were inserted. Medtronic bipolar active fixation right ventricular lead model 881653, serial number [id number] was advanced under fluoroscopy guidance and the tip was positioned in the right ventricular apex. Follow ing this, a Medtronic bipolar active fixation right atrial lead model 287874, serial number [id number] was positioned in the right atrial appendage under fluoroscopy guidance. The leads were secured i nto place and were attached to a Medtronic dual-chamber permanent pacemaker generator model [id number], s erial number [id number]. This was placed in the pocket that was subsequently closed in 3 layers. He mostasis was secured. The right ventricular lead showed impedance of 988 ohms, sensing amplitude of 5 mV and a threshold of 0.75 V. The right atrial lead showed a sensing amplitude of 1.8 mV, impedance of 418 ohms and a thr eshold of 1.25 V. Patient tolerated the procedure well. There were no immediate complications. CONCLUSION Successful implantation of Medtronic dual-chamber permanent pacemaker for high-grade second-degree AV block and severe symptomatic bradycardia. Signed by : Christiano Hillman, Electronically Approved : 04/29/2020 14:25:21
[2020-04-29] MEDS: IV NORMAL SALINE 1000ML BAG 1,000 ML IV SCH (14:37)
--- NOTE | 2020-04-29 16:48 | CARD ---
MR#: [id number] Date of Study: 04/29/2020 Ordering Physician: CHRISTIANO DENT, Referring Physician: CHRISTIANO DENT Tech: Kimberley Douglas ALEXX APPROVED REPORT EXAM: Two-dimensional and M-mode echocardiogram with Doppler and color Doppler. Other Information Quality : Good Technically limited study due to body habitus. INDICATION Abnormal ECG Bradycardia, Supine Position--S/P Pacemaker Surgery/Intervention Pacemaker: Date: 04/29/2020 2D DIMENSIONS Left Atrium(2D)3.5 (1.6-4.0cm)IVSd0.7 (0.7-1.1cm) Aortic Root(2D)3.0 (2.0-3.7cm)LVDd4.0 (3.9-5.9cm) LVOT Diameter2.1 (1.8-2.4cm)PWd0.8 (0.7-1.1cm) LVDs2.9 (2.5-4.0cm)FS (%) 29.1 % SV40.2 mlLVEF(%)56.4 (>50%) Aortic Valve AoV Peak Gurpreet.151.6cm/sAoV VTI29.3cm AO Peak GR.9.2mmHgLVOT VTI 21.03cm AO Mean GR.5mmHgAVA (VTI)2.50cm2 Mitral Valve MV E Skldckhj63.4cm/sMV DECEL [id number] MV A Nlblpkrp747.9cm/sE/A Ratio0.8 TDI Lateral E' P. V6.18cm/sMedial E' P. V4.96cm/s E/Lateral E'13.7E/Medial E'17.0 Pulmonary Vein S1 Ltgcigkm97.3cm/sS2 Mpfjadlv29.15cm/s D2 Evarbvns05.1cm/s LEFT VENTRICLE The left ventricle is normal size. There is normal left ventricular wall thickness. The left ventricu lar systolic function is normal and the ejection fraction is within normal range. The Ejection Fracti on is 55-60%. There is normal LV segmental wall motion. Transmitral Doppler flow pattern is Grade I-a bnormal relaxation pattern. RIGHT VENTRICLE The right ventricle is normal size. The right ventricular systolic function is normal. ATRIA The left atrium size is normal. The right atrium size is normal. A pacemaker is seen in the right atr ium consistent with history. The interatrial septum is intact with no evidence for an atrial septal d efect or patent foramen ovale as noted on 2-D or Doppler imaging. AORTIC VALVE The aortic valve is calcified but opens well. Doppler and Color Flow revealed no significant aortic r egurgitation. There is no significant aortic valvular stenosis. MITRAL VALVE The mitral valve is calcified but opens well. Mitral annular calcification is mild. There is no evide nce of mitral valve prolapse. There is no mitral valve stenosis. Doppler and Color-flow revealed trac e to mild mitral regurgitation. TRICUSPID VALVE The tricuspid valve is normal in structure and function. Doppler and Color Flow revealed no tricuspid valve regurgitation noted. There is no tricuspid valve stenosis. PULMONIC VALVE The pulmonic valve is not well visualized. Doppler and Color Flow revealed no pulmonic valvular regur gitation. There is no pulmonic valvular stenosis. GREAT VESSELS The aortic root is normal in size. The ascending aorta is not well seen. The IVC was not visualized. PERICARDIAL EFFUSION There is no evidence of significant pericardial effusion. Critical Notification Critical Value: No <Conclusion> The left ventricular systolic function is normal and the ejection fraction is within normal range. Th e Ejection Fraction is 55-60%. There is normal LV segmental wall motion. Signed by : Dakota Cotton, Electronically Approved : 04/29/2020 16:48:25
[2020-04-29] MEDS: ENOXAPARIN 30 MG/0.3 ML SYRINGE. SQ SCH (18:04)
[2020-04-29] MEDS: ATORVASTATIN CALCIUM 40 MG TABLET. PO SCH (21:56)
[2020-04-29] MEDS: TRESIBA SQ SCH (21:58)
[2020-04-30] MEDS: IV NORMAL SALINE 1000ML BAG 1,000 ML IV SCH (01:50)
[2020-04-30 03:25] VITALS: BP 132/58
[2020-04-30 04:59] LABS: CALCIUM 8.3 mg/dL (8.5-10.1); CREATININE 1.4 mg/dL (0.6-1.0); GFR 36.4; POTASSIUM 3.9 mmol/L (3.5-5.1)
[2020-04-30] MEDS: LEVOTHYROXINE 112 MCG TABLET PO SCH (06:03)
[2020-04-30 07:00] VITALS: BP 151/68
[2020-04-30] MEDS: INSULIN LISPRO 300 UNITS/3 ML VIAL. SQ SCH ×2 (08:00→12:39)
[2020-04-30] MEDS: ACETAMINOPHEN 325 MG TABLET. PO PRN (08:49)
[2020-04-30] MEDS ORDERED: INSU100V37 SQ (08:57)
--- NOTE | 2020-04-30 08:57 | PDOC ---
PROGRESS NOTES Chief Complaint Chief Complaint A/P: Sinus bradycardia - s/p PPM insertion 04/29/2020 without complications HTN - norvasc 10 mg po daily on hold Hypothyroid state on replacement Acute on chronic renal insufficiency - vasomotor nephropathy 2 cm right retrocardiac nodule is likely a normal vessel. Correlation with an upright 2 view radiograph is suggested when feasible. Hyperinflation. Correlate for deep respiratory effort versus air ADMITTED History of Present Illness History of Present Illness Ms Miller is a 79yo F w/ PMHx DM2 admitted initially for very high blood sugar of 531. EMS was called and she was found to be severely bradycardic and brought to ED. Upon examination, telemetry showed high-grade second-degree AV block with heart rate in 30, admitted for further care. 04/27 // HR 35 ON MY VISIT 04/28 started on intravenous dopamine overnight for bradycardia. 04/29: Overnight bradycardic. She felt "terrible" on dopamine. No CP or S OB. Discussed with daughter bedside plans for pacemaker insertion ECHO: The left ventricular systolic function is normal and the ejection fraction is within normal range. The Ejection Fraction is 55-60%. There is normal LV segmental wall motion. Pacemaker 04/29/2020: After explaining the risks, benefits, and alternative options, informed consent was obtained from the patient. The patient was brought to the cardiac catheterization lab and the left chest and shoulder were prepped and draped in a sterile manner. 30 cc of 2% lidocaine was infiltrated into the skin and subcutaneous tissues for local anesthesia. An incision was made over the left infraclavicular fossa and using blunt dissection and cautery a pocket was created. Venous access was obtained in the left subclavian vein with the help of a venogram after fluoroscopic guidance failed and 9 and 7 [place] sheaths were inserted. Medtronic bipolar active fixation right ventricular lead model [id number], serial number [id number] was advanced under fluoroscopy guidance and the tip was positioned in the right ventricular apex. Following this, a Medtronic bipolar active fixation right atrial lead model [id number], serial number [id number] was positioned in the right atrial appendage under fluoroscopy guidance. The leads were secured into place and were attached to a Medtronic dual-chamber permanent pacemaker generator model [id number], serial number [id number]. This was placed in the pocket that was subsequently closed in 3 layers. Hemostasis was secured. The right ventricular lead showed impedance of 988 ohms, sensing amplitude of 5 mV and a threshold of 0.75 V. The right atrial lead showed a sensing amplitude of 1.8 mV, impedance of 418 ohms and a threshold of 1.25 V. Patient tolerated the procedure well. There were no immediate complications. CONCLUSION Successful implantation of Medtronic dual-chamber permanent pacemaker for high- grade second-degree AV block and severe symptomatic bradycardia. She is feeling improved. glucose in 130s. No SOB, no CP. She wishes only for home health that speaks irish or no home health at all. Vitals Vitals Vital Signs Date Time Temp Pulse Resp B/P (MAP) Pulse Ox O2 Delivery O2 Flow Rate FiO2 04/30/20 03:25 98.6 74 18 132/58 (82) 97 Room Air 98.6 04/29/20 19:55 2.0 Physical Exam General: Alert, Oriented X3, Cooperative, No acute distress Heart: Other (BRADYCARDIA) Lungs: Clear Abdomen: Normal bowel sounds Extremities: No clubbing Skin: No breakdown Labs LABS Laboratory Tests Test 04/29/20 12:07 04/29/20 14:36 04/29/20 17:13 04/29/20 20:36 Glucose (Fingerstick) 135 mg/dL (70-99) 131 mg/dL (70-99) 159 mg/dL (70-99) 221 mg/dL (70-99) Test 04/30/20 03:30 04/30/20 08:11 Sodium Level 140 mmol/L (136-145) Potassium Level 3.9 mmol/L (3.5-5.1) Chloride Level 108 mmol/L (98-107) Carbon Dioxide Level 23 mmol/L (21-32) Anion Gap 9 (6-14) Blood Urea Nitrogen 27 mg/dL (7-20) Creatinine 1.4 mg/dL (0.6-1.0) Estimated GFR (Cockcroft-Gault) 36.4 Glucose Level 138 mg/dL (70-99) Calcium Level 8.3 mg/dL (8.5-10.1) Glucose (Fingerstick) 132 mg/dL (70-99) Assessment and Plan Assessmemt and Plan Problems Medical Problems: (1) Acute on chronic renal insufficiency Status: Acute (2) Severe sinus bradycardia Status: Acute Comment Review of Relevant I have reviewed the following items yelena (where applicable) has been applied. Labs Laboratory Tests Test 04/28/20 11:38 04/28/20 16:26 04/28/20 20:21 04/29/20 04:05 Glucose (Fingerstick) 272 mg/dL (70-99) 167 mg/dL (70-99) 244 mg/dL (70-99) White Blood Count 7.7 x10^3/uL (4.0-11.0) Red Blood Count 3.33 x10^6/uL (3.50-5.40) Hemoglobin 9.9 g/dL (12.0-15.5) Hematocrit 28.7 % (36.0-47.0) Mean Corpuscular Volume 86 fL (79-100) Mean Corpuscular Hemoglobin 30 pg (25-35) Mean Corpuscular Hemoglobin Concent 35 g/dL (31-37) Red Cell Distribution Width 12.9 % (11.5-14.5) Platelet Count 234 x10^3/uL (140-400) Neutrophils (%) (Auto) 63 % (31-73) Lymphocytes (%) (Auto) 25 % (24-48) Monocytes (%) (Auto) 8 % (0-9) Eosinophils (%) (Auto) 4 % (0-3) Basophils (%) (Auto) 1 % (0-3) Neutrophils # (Auto) 4.9 x10^3/uL (1.8-7.7) Lymphocytes # (Auto) 1.9 x10^3/uL (1.0-4.8) Monocytes # (Auto) 0.6 x10^3/uL (0.0-1.1) Eosinophils # (Auto) 0.3 x10^3/uL (0.0-0.7) Basophils # (Auto) 0.0 x10^3/uL (0.0-0.2) Sodium Level 139 mmol/L (136-145) Potassium Level 4.1 mmol/L (3.5-5.1) Chloride Level 107 mmol/L (98-107) Carbon Dioxide Level 25 mmol/L (21-32) Anion Gap 7 (6-14) Blood Urea Nitrogen 40 mg/dL (7-20) Creatinine 1.7 mg/dL (0.6-1.0) Estimated GFR (Cockcroft-Gault) 29.1 Glucose Level 171 mg/dL (70-99) Calcium Level 8.4 mg/dL (8.5-10.1) Phosphorus Level 3.4 mg/dL (2.6-4.7) Albumin 2.6 g/dL (3.4-5.0) Test 04/29/20 08:33 04/29/20 12:07 04/29/20 14:36 04/29/20 17:13 Glucose (Fingerstick) 154 mg/dL (70-99) 135 mg/dL (70-99) 131 mg/dL (70-99) 159 mg/dL (70-99) Test 04/29/20 20:36 04/30/20 03:30 04/30/20 08:11 Glucose (Fingerstick) 221 mg/dL (70-99) 132 mg/dL (70-99) Sodium Level 140 mmol/L (136-145) Potassium Level 3.9 mmol/L (3.5-5.1) Chloride Level 108 mmol/L (98-107) Carbon Dioxide Level 23 mmol/L (21-32) Anion Gap 9 (6-14) Blood Urea Nitrogen 27 mg/dL (7-20) Creatinine 1.4 mg/dL (0.6-1.0) Estimated GFR (Cockcroft-Gault) 36.4 Glucose Level 138 mg/dL (70-99) Calcium Level 8.3 mg/dL (8.5-10.1) Laboratory Tests Test 04/29/20 12:07 04/29/20 14:36 04/29/20 17:13 04/29/20 20:36 Glucose (Fingerstick) 135 mg/dL (70-99) 131 mg/dL (70-99) 159 mg/dL (70-99) 221 mg/dL (70-99) Test 04/30/20 03:30 04/30/20 08:11 Sodium Level 140 mmol/L (136-145) Potassium Level 3.9 mmol/L (3.5-5.1) Chloride Level 108 mmol/L (98-107) Carbon Dioxide Level 23 mmol/L (21-32) Anion Gap 9 (6-14) Blood Urea Nitrogen 27 mg/dL (7-20) Creatinine 1.4 mg/dL (0.6-1.0) Estimated GFR (Cockcroft-Gault) 36.4 Glucose Level 138 mg/dL (70-99) Calcium Level 8.3 mg/dL (8.5-10.1) Glucose (Fingerstick) 132 mg/dL (70-99) Medications Current Medications Aspirin (Annabella Aspirin) 325 mg 1X ONCE PO Last administered on 04/27/20at 05:10; Start 04/27/20 at 05:00; Stop 04/27/20 at 05:01; Status DC Sodium Chloride 1,000 ml @ 1,000 mls/hr 1X ONCE IV Last administered on 04/27/20at 05:10; Start 04/27/20 at 05:00; Stop 04/27/20 at 05:59; Status DC Atropine Sulfate (ATROPINE 0.5mg SYRINGE) 0.5 mg 1X ONCE IV ; Start 04/27/20 at 05:00; Stop 04/27/20 at 05:01; Status DC Atropine Sulfate (ATROPINE 1mg SYRINGE) 1 mg STK-MED ONCE .ROUTE ; Start 04/27/20 at 04:39; Stop 04/27/20 at 04:39; Status DC Atropine Sulfate (ATROPINE 0.5mg SYRINGE) 0.5 mg 1X ONCE IV ; Start 04/27/20 at 05:00; Stop 04/27/20 at 05:01; Status DC Ondansetron HCl (Zofran) 4 mg PRN Q8HRS PRN IV NAUSEA/VOMITING; Start 04/27/20 at 05:00; Stop 04/28/20 at 04:59; Status DC Insulin Human Lispro (HumaLOG) 0-5 UNITS TIDWMEALS SQ Last administered on 04/29/20at 18:13; Start 04/27/20 at 08:00 Dextrose (Dextrose 50%-Water Syringe) 12.5 gm PRN Q15MIN PRN IV SEE COMMENTS; Start 04/27/20 at 05:00 Atropine Sulfate (ATROPINE 1mg SYRINGE) 0.5 mg PRN Q1HR PRN IV SEE COMMENTS Last administered on 04/27/20at 05:45; Start 04/27/20 at 05:00; Stop 04/27/20 at 10:00; Status DC Atropine Sulfate (ATROPINE 1mg SYRINGE) 1 mg PRN Q1HR PRN IV SEE COMMENTS; Start 04/27/20 at 05:15; Stop 04/27/20 at 10:00; Status DC Alprazolam (Xanax) 0.25 mg PRN Q8HRS PRN PO ANXIETY / AGITATION Last administered on 04/27/20at 09:05; Start 04/27/20 at 08:30 Dopamine HCl/ Dextrose 250 ml @ 6.881 mls/ hr CONT PRN IV SEE I/O RECORD Last administered on 04/29/20at 04:58; Start 04/27/20 at 13:45 Alprazolam (Xanax) 0.25 mg DAILY PO ; Start 04/28/20 at 09:00; Status UNV Atorvastatin Calcium (Lipitor) 40 mg QHS PO Last administered on 04/29/20at 21:56; Start 04/27/20 at 21:00 Levothyroxine Sodium (Synthroid) 112 mcg DAILY06 PO Last administered on 04/30/20at 06:03; Start 04/27/20 at 16:30 Sodium Chloride (Normal Saline Flush) 3 ml QSHIFT PRN IV AFTER MEDS AND BLOOD DRAWS; Start 04/27/20 at 16:30 Ondansetron HCl (Zofran) 4 mg PRN Q4HRS PRN IV NAUSEA/VOMITING; Start 04/27/20 at 16:30 Acetaminophen (Tylenol) 650 mg PRN Q4HRS PRN PO TEMP OVER 100.4F OR MILD PAIN Last administered on 04/30/20at 08:49; Start 04/27/20 at 16:30 Al Hydroxide/Mg Hydroxide (Mylanta Plus Xs) 30 ml PRN DAILY PRN PO HEARTBURN / GAS; Start 04/27/20 at 16:30 Sodium Monofluorophosphate (Fleet Adult) 133 ml PRN DAILY PRN UT CONSTIPATION; Start 04/27/20 at 16:30 Docusate Sodium (Colace) 100 mg PRN BID PRN PO HARD STOOLS; Start 04/27/20 at 16:30 Albuterol Sulfate (Ventolin Neb Soln) 2.5 mg PRN Q4HRS PRN NEB SHORTNESS OF BREATH; Start 04/27/20 at 16:30 Guaifenesin (Robitussin) 200 mg PRN Q4HRS PRN PO COUGH; Start 04/27/20 at 16:30 Lorazepam (Ativan) 0.5 mg PRN Q4HRS PRN PO ANXIETY / AGITATION; Start 04/27/20 at 16:30; Status Cancel Enoxaparin Sodium (Lovenox 30mg Syringe) 30 mg Q24H SQ Last administered on 04/29/20at 18:04; Start 04/27/20 at 17:00 Non-Formulary Medication 1 ea QHS SQ Last administered on 04/29/20at 21:58; Start 04/27/20 at 21:00 Cefazolin Sodium (Ancef) 1 gm 1X ONCE IVP Last administered on 04/29/20at 13:40; Start 04/29/20 at 06:00; Stop 04/29/20 at 06:01; Status DC Nitroglycerin (Nitro-Bid Oint) 0.5 inch 1X ONCE TP Last administered on 04/29/20at 00:52; Start 04/29/20 at 01:00; Stop 04/29/20 at 01:01; Status DC Bacitracin 71131 unit/Sodium Chloride 250 ml @ 0 mls/hr 1X ONCE IRR Last administered on 04/29/20at 13:39; Start 04/29/20 at 11:45; Stop 04/29/20 at 11:46; Status DC Midazolam HCl (Versed) 5 mg STK-MED ONCE .ROUTE ; Start 04/29/20 at 12:26; Stop 04/29/20 at 12:27; Status DC Fentanyl Citrate (Fentanyl 2ml Vial) 100 mcg STK-MED ONCE .ROUTE ; Start 04/29/20 at 12:26; Stop 04/29/20 at 12:27; Status DC Cefazolin Sodium (Ancef) 1 gm STK-MED ONCE IVP ; Start 04/29/20 at 12:27; Stop 04/29/20 at 12:27; Status DC Sodium Chloride 1,000 ml @ 75 mls/hr [id number] IV Last administered on 04/30/20at 01:50; Start 04/29/20 at 12:30 Lidocaine/ Epinephrine (LIDOCAINE 2%-EPI 1:100,000 multi-dose) 20 ml STK-MED ONCE .ROUTE ; Start 04/29/20 at 12:32; Stop 04/29/20 at 12:33; Status DC Midazolam HCl (Versed) 5 mg 1X ONCE IV Last administered on 04/29/20at 13:40; Start 04/29/20 at 13:00; Stop 04/29/20 at 13:06; Status DC Fentanyl Citrate (Fentanyl 2ml Vial) 100 mcg 1X ONCE IV Last administered on 04/29/20at 13:41; Start 04/29/20 at 13:00; Stop 04/29/20 at 13:06; Status DC Lidocaine/ Epinephrine (LIDOCAINE 2%-EPI 1:100,000 multi-dose) 20 ml 1X ONCE IJ Last administered on 04/29/20at 13:39; Start 04/29/20 at 13:00; Stop 04/29/20 at 13:06; Status DC Iodixanol (Visipaque 320) 100 ml STK-MED ONCE .ROUTE ; Start 04/29/20 at 13:25; Stop 04/29/20 at 13:25; Status DC Iodixanol (Visipaque 320) 15 ml 1X ONCE IV Last administered on 04/29/20at 13:39; Start 04/29/20 at 13:30; Stop 04/29/20 at 13:31; Status DC Info (CONTRAST GIVEN -- Rx MONITORING) 1 each PRN DAILY PRN MC SEE COMMENTS; Start 04/29/20 at 13:30; Stop 05/01/20 at 13:29 Active Scripts Active Meclizine Hcl 25 Mg Tablet 1 Tab PO TID Reported Amlodipine Besylate 10 Mg Tablet 10 Mg PO DAILY Tresiba (Insulin Degludec) 100 Unit/1 Ml Vial 100 Unit SQ DAILY Atorvastatin Calcium 40 Mg Tablet 1 Tab PO DAILY Levothyroxine Sodium 112 Mcg Tablet 1 Tab PO DAILY Xanax (Alprazolam) 0.25 Mg Tablet 1 Tab PO DAILY Vitals/I & O Vital Sign - Last 24 Hours 04/29/20 04/29/20 04/29/20 04/29/20 09:34 11:00 11:39 13:41 Temp 98.3 98.3 Pulse 37 36 38 Resp 16 21 B/P (MAP) 146/93 (110) 145/68 (93) 160/77 (104) Pulse Ox 98 100 O2 Delivery Room Air Nasal Cannula O2 Flow Rate 2.0 04/29/20 04/29/20 04/29/20 04/29/20 14:04 14:23 14:38 14:53 Pulse 78 79 75 63 Resp 21 B/P (MAP) 149/54 (85) 142/60 (87) 140/58 (85) Pulse Ox 100 98 98 O2 Delivery Nasal Cannula Room Air Room Air O2 Flow Rate 2.0 04/29/20 04/29/20 04/29/20 04/29/20 15:00 15:08 15:38 16:08 Temp 98.0 98.0 Pulse 74 75 71 70 Resp 18 B/P (MAP) 140/58 (85) 145/75 (98) 155/70 (98) 150/69 (96) Pulse Ox 98 97 98 99 O2 Delivery Room Air Room Air Room Air Room Air 04/29/20 04/29/20 04/29/20 04/29/20 17:00 17:08 18:08 19:55 Temp 98.2 98.2 Pulse 76 75 74 Resp 18 B/P (MAP) 142/71 (94) 163/77 (105) 138/66 (90) Pulse Ox 97 98 O2 Delivery Room Air Room Air Room Air O2 Flow Rate 2.0 04/29/20 04/30/20 23:08 03:25 Temp 98.4 98.6 98.4 98.6 Pulse 75 74 Resp 18 18 B/P (MAP) 146/54 (84) 132/58 (82) Pulse Ox 96 97 O2 Delivery Room Air Room Air Intake and Output 04/29/20 04/29/20 04/30/20 15:00 23:00 07:00 Intake Total 0 ml 240 ml 0 ml Output Total 500 ml 0 ml Balance 0 ml -260 ml 0 ml HONEY ASHLEY MD Apr 30, 2020 08:56
--- NOTE | 2020-04-30 08:59 | SNU/HH DC ---
DISCHARGE WITH HOME HEALTH DISCHARGE INFORMATION: Discharge Date: Apr 30, 2020 Final Diagnosis: Problems Medical Problems: (1) Acute on chronic renal insufficiency Status: Acute (2) Severe sinus bradycardia Status: Acute Condition on Discharge: Stable CODE STATUS: Code Status: Full HOME HEALTH: Face to Face: I certify this patient is under my care and that I, or a nurse practitioner or physician's assistant track coach working with me, had a face to face encounter that meets the physician face to face encounter requirements with this patient on 04/30/2020. Medical Complications: DM, HTN, Other (Pacemaker insertion) RN For Eval/Treatment: Yes Physical Therapy For: Evalulation/Treatment Occupational Therapy For: Evaluation/Treatment Home Health Aide For: Self-care Pt Meets Homebound Status: Fatigue w/ amb. POST DISCHARGE ORDERS: Activity Instructions for Disc: Resume previous activity Weight Bearing Status after Di: Full weight bearing Bathing Instructions: Shower-keep dressing dry DIET AFTER DISCHARGE: Cardiac Wound/Incision Care: Ice to area for comfort, Keep wound elevated (Sling) CHECKS AFTER DISCHARGE: Checks after discharge: Check blood press - daily, Check blood sugar, ac/hs FOLLOW-UP: Follow up with: Cardiology - Dr. Hillman CERTIFICATION STATEMENT: Certification Statement: Certification Statement: Based on the above finding, I certify that this patient is confined to the home and needs intermittent halfway care, physical therapy and/or speech therapy, or continues to need occupational therapy.~ This patient is under my care, and I have initiated the establishment of the plan of care.~ This patient will be followed by myself or a community physician who will periodically review the plan of care. Home Meds Active Scripts Insulin Degludec (Tresiba) 100 Unit/1 Ml Vial, 10 UNIT SQ DAILY for diabetes for 30 Days, #1 EACH Prov:HONEY ASHLEY MD 04/30/20 Reported Medications Atorvastatin Calcium (ATORVASTATIN CALCIUM) 40 Mg Tablet, 1 TAB PO DAILY for high cholesterol, #30 TAB 5 Refills 03/09/19 Levothyroxine Sodium (LEVOTHYROXINE SODIUM) 112 Mcg Tablet, 1 TAB PO DAILY for h ypo, #30 TAB 5 Refills 03/09/19 Alprazolam (XANAX) 0.25 Mg Tablet, 1 TAB PO DAILY for anxiety, #30 TAB 03/09/19 Discontinued Reported Medications Amlodipine Besylate (AMLODIPINE BESYLATE) 10 Mg Tablet, 10 MG PO DAILY for HTN, TAB 04/27/20 Insulin Aspart (NOVOLOG) 100 Unit/1 Ml Cartridge, 100 UNIT SQ DAILY for diabetes, EACH 03/09/19 Discontinued Scripts Meclizine Hcl (MECLIZINE HCL) 25 Mg Tablet, 1 TAB PO TID for dizziness, #20 TAB Prov:LUIS DAY MD 08/22/19 HONEY ASHLEY MD Apr 30, 2020 08:59
--- NOTE | 2020-04-30 09:43 | PDOC ---
SHERI BUNDY EAR NOSE THROAT PHYSICIAN 04/30/20 0943: CARDIO Progress Notes Date and Time Date of Service 04/30/20 Time of Evaluation 0930 Subjective Subjective: No Chest Pain, No shortness of breath, No Palpitations, No Dizziness Vitals Vitals Vital Signs Date Time Temp Pulse Resp B/P (MAP) Pulse Ox O2 Delivery O2 Flow Rate FiO2 04/30/20 03:25 98.6 74 18 132/58 (82) 97 Room Air 98.6 04/29/20 19:55 2.0 Weight Weight [ ] Input and Output Intake and Output Intake and Output 04/30/20 07:00 Intake Total 240 ml Output Total 500 ml Balance -260 ml Intake Oral 240 ml Output Urine Total 500 ml Laboratory Labs Laboratory Tests Test 04/29/20 12:07 04/29/20 14:36 04/29/20 17:13 04/29/20 20:36 Glucose (Fingerstick) 135 mg/dL (70-99) 131 mg/dL (70-99) 159 mg/dL (70-99) 221 mg/dL (70-99) Test 04/30/20 03:30 04/30/20 08:11 Sodium Level 140 mmol/L (136-145) Potassium Level 3.9 mmol/L (3.5-5.1) Chloride Level 108 mmol/L (98-107) Carbon Dioxide Level 23 mmol/L (21-32) Anion Gap 9 (6-14) Blood Urea Nitrogen 27 mg/dL (7-20) Creatinine 1.4 mg/dL (0.6-1.0) Estimated GFR (Cockcroft-Gault) 36.4 Glucose Level 138 mg/dL (70-99) Calcium Level 8.3 mg/dL (8.5-10.1) Glucose (Fingerstick) 132 mg/dL (70-99) Physical Exam HEENT: Neck Supple W Full Motion Chest: Symmetric, Other (left pectoral PPM insertion site without hematoma or ecchymosis. Incision well approximated. Steri-strips intact. ) LUNGS: Clear to Auscultation Heart: S1S2, RRR Abdomen: Soft N/T Extremities: No Edema Neurology: alert, oriented, follow commands Assessment Assessment 1. 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 S/p successful implantation of Medtronic dual-chamber permanent pacemaker. Tolerated procedure well. 2. Hypertension: Controlled 3. Hyperlipidemia; statin 4. Hypothyroidism with elevated TSH level. Treat per IM. 5. Diabetes, II 6. ALEENA on CKD; Cr better Recommendations CXR Resume amlodipine. Follow up in our office for wound check as scheduled Supportive care May discharge from a CV standpoint if CXR WNL Justicifation of Admission Dx: Justifications for Admission: Justification of Admission Dx: Yes CHF: Hemodynamic Instability CHRISTIANO DENT MD 04/30/20 1652: CARDIO Progress Notes Assessment Assessment Patient seen and examined. Agree with RECORDS AND INFORMATION MANAGER's assessment and plan. s/p permanent pacemaker implantation yesterday for high-grade second-degree AV block. Incision looks good. Device interrogation showed normal function. Chest x-ray without any pneumothorax. Okay for discharge. Follow-up as scheduled. SHERI BUNDY APRN Apr 30, 2020 09:43 CHRISTIANO DENT MD Apr 30, 2020 16:52
[2020-04-30 11:00] VITALS: BP 149/74
[2020-04-30] MEDS ORDERED: amLODIPine BESYLATE 5 MG TABLET PO SCH (11:00)
--- NOTE | 2020-04-30 11:53 | PDOC ---
Renal-Progress Notes Subjective Notes Notes NO NEW COMPLAINTS History of Present Illness Hx of present illness NO CHANGES Vitals Vitals Vital Signs Date Time Temp Pulse Resp B/P (MAP) Pulse Ox O2 Delivery O2 Flow Rate FiO2 04/30/20 11:00 98.7 79 18 149/74 (99) 97 Room Air 98.7 04/30/20 08:00 2.0 Weight Weight [ ] I.O. Intake and Output Intake and Output 04/30/20 07:00 Intake Total 240 ml Output Total 500 ml Balance -260 ml Intake Oral 240 ml Output Urine Total 500 ml Labs Labs Laboratory Tests Test 04/29/20 12:07 04/29/20 14:36 04/29/20 17:13 04/29/20 20:36 Glucose (Fingerstick) 135 mg/dL (70-99) 131 mg/dL (70-99) 159 mg/dL (70-99) 221 mg/dL (70-99) Test 04/30/20 03:30 04/30/20 08:11 Sodium Level 140 mmol/L (136-145) Potassium Level 3.9 mmol/L (3.5-5.1) Chloride Level 108 mmol/L (98-107) Carbon Dioxide Level 23 mmol/L (21-32) Anion Gap 9 (6-14) Blood Urea Nitrogen 27 mg/dL (7-20) Creatinine 1.4 mg/dL (0.6-1.0) Estimated GFR (Cockcroft-Gault) 36.4 Glucose Level 138 mg/dL (70-99) Calcium Level 8.3 mg/dL (8.5-10.1) Glucose (Fingerstick) 132 mg/dL (70-99) Review of Systems Constitutional: yes: alert, oriented Ears/Nose/Throat: Yes: no symptom reported Eyes: Yes: no symptom reported Pulmonary: Yes no symptom reported Cardiovascular: Yes no symptom reported Gastrointestional: Yes: no symptom reported Genitourinary: Yes: no symptom reported Musculoskeletal: Yes: no symptom reported Skin: Yes no symptom reported Psychiatric/Neurological: Yes: no symptom reported Endocrine: Yes: no symptom reported Physical Exam General Appearance: no apparent distress Skin: warm Respiratory: bilateral CTA Heart: S1S2 Abdomen: soft Extremities: pulses present Neurology: alert Assessment Assessment IMP ALEENA WITH CR IMPROVED TO 1.4 CKD STAGE 3 WITH BASELINE OF 1.3 SEVERE [id number] PPM HYPOTHYROID PLAN ONGOING CARDIOLOGY EVAL AND TX RENAL FXN IS STABLE WILL FOLLOW NEEDED SEJAL DAVSI MD Apr 30, 2020 11:53
[2020-04-30] MEDS ORDERED: AMLO10TA8 PO (12:43)
--- NOTE | 2020-04-30 12:59 | PDOC3 ---
Discharge Summary Visit Information Date of Admission: Apr 27, 2020 Date of Discharge: Apr 30, 2020 Admitting Diagnosis: Severe symptomatic bradycardia Final Diagnosis Problems Medical Problems: (1) Acute on chronic renal insufficiency Status: Acute (2) Severe sinus bradycardia Status: Acute Brief Hospital Course Allergies Allergies Coded Allergies Type Severity Reaction Last Updated Verified No Known Drug Allergies 03/09/19 No Vital Signs Vital Signs Date Time Temp Pulse Resp B/P (MAP) Pulse Ox O2 Delivery O2 Flow Rate FiO2 04/30/20 11:00 98.7 79 18 149/74 (99) 97 Room Air 98.7 04/30/20 08:00 2.0 Lab Results Laboratory Tests Test 04/28/20 16:26 04/28/20 20:21 04/29/20 04:05 04/29/20 08:33 Glucose (Fingerstick) 167 mg/dL (70-99) 244 mg/dL (70-99) 154 mg/dL (70-99) White Blood Count 7.7 x10^3/uL (4.0-11.0) Red Blood Count 3.33 x10^6/uL (3.50-5.40) Hemoglobin 9.9 g/dL (12.0-15.5) Hematocrit 28.7 % (36.0-47.0) Mean Corpuscular Volume 86 fL (79-100) Mean Corpuscular Hemoglobin 30 pg (25-35) Mean Corpuscular Hemoglobin Concent 35 g/dL (31-37) Red Cell Distribution Width 12.9 % (11.5-14.5) Platelet Count 234 x10^3/uL (140-400) Neutrophils (%) (Auto) 63 % (31-73) Lymphocytes (%) (Auto) 25 % (24-48) Monocytes (%) (Auto) 8 % (0-9) Eosinophils (%) (Auto) 4 % (0-3) Basophils (%) (Auto) 1 % (0-3) Neutrophils # (Auto) 4.9 x10^3/uL (1.8-7.7) Lymphocytes # (Auto) 1.9 x10^3/uL (1.0-4.8) Monocytes # (Auto) 0.6 x10^3/uL (0.0-1.1) Eosinophils # (Auto) 0.3 x10^3/uL (0.0-0.7) Basophils # (Auto) 0.0 x10^3/uL (0.0-0.2) Sodium Level 139 mmol/L (136-145) Potassium Level 4.1 mmol/L (3.5-5.1) Chloride Level 107 mmol/L (98-107) Carbon Dioxide Level 25 mmol/L (21-32) Anion Gap 7 (6-14) Blood Urea Nitrogen 40 mg/dL (7-20) Creatinine 1.7 mg/dL (0.6-1.0) Estimated GFR (Cockcroft-Gault) 29.1 Glucose Level 171 mg/dL (70-99) Calcium Level 8.4 mg/dL (8.5-10.1) Phosphorus Level 3.4 mg/dL (2.6-4.7) Albumin 2.6 g/dL (3.4-5.0) Test 04/29/20 12:07 04/29/20 14:36 04/29/20 17:13 04/29/20 20:36 Glucose (Fingerstick) 135 mg/dL (70-99) 131 mg/dL (70-99) 159 mg/dL (70-99) 221 mg/dL (70-99) Test 04/30/20 03:30 04/30/20 08:11 04/30/20 12:12 Sodium Level 140 mmol/L (136-145) Potassium Level 3.9 mmol/L (3.5-5.1) Chloride Level 108 mmol/L (98-107) Carbon Dioxide Level 23 mmol/L (21-32) Anion Gap 9 (6-14) Blood Urea Nitrogen 27 mg/dL (7-20) Creatinine 1.4 mg/dL (0.6-1.0) Estimated GFR (Cockcroft-Gault) 36.4 Glucose Level 138 mg/dL (70-99) Calcium Level 8.3 mg/dL (8.5-10.1) Glucose (Fingerstick) 132 mg/dL (70-99) 304 mg/dL (70-99) Laboratory Tests Test 04/29/20 14:36 04/29/20 17:13 04/29/20 20:36 04/30/20 03:30 Glucose (Fingerstick) 131 mg/dL (70-99) 159 mg/dL (70-99) 221 mg/dL (70-99) Sodium Level 140 mmol/L (136-145) Potassium Level 3.9 mmol/L (3.5-5.1) Chloride Level 108 mmol/L (98-107) Carbon Dioxide Level 23 mmol/L (21-32) Anion Gap 9 (6-14) Blood Urea Nitrogen 27 mg/dL (7-20) Creatinine 1.4 mg/dL (0.6-1.0) Estimated GFR (Cockcroft-Gault) 36.4 Glucose Level 138 mg/dL (70-99) Calcium Level 8.3 mg/dL (8.5-10.1) Test 04/30/20 08:11 04/30/20 12:12 Glucose (Fingerstick) 132 mg/dL (70-99) 304 mg/dL (70-99) Brief Hospital Course Ms Miller is a 79yo F w/ PMHx DM2 admitted initially for very high blood sugar of 531. EMS was called and she was found to be severely bradycardic and brought to ED. Upon examination, telemetry showed high-grade second-degree AV block with heart rate in 30, admitted for further care. 04/27: HR 35 ON MY VISIT 04/28: started on intravenous dopamine overnight for bradycardia. 04/29: Overnight bradycardic. She felt "terrible" on dopamine. No CP or S OB. Discussed with daughter bedside plans for pacemaker insertion ECHO: The left ventricular systolic function is normal and the ejection fraction is w ithin normal range. The Ejection Fraction is 55-60%. There is normal LV segmental wall motion. Pacemaker 04/29/2020: After explaining the risks, benefits, and alternative options, informed consent was obtained from the patient. The patient was brought to the cardiac catheterization lab and the left chest and shoulder were prepped and draped in a sterile manner. 30 cc of 2% lidocaine was infiltrated into the skin and subcutaneous tissues for local anesthesia. An incision was made over the left infraclavicular fossa and using blunt dissection and cautery a pocket was created. Venous access was obtained in the left subclavian vein with the help of a venogram after fluoroscopic guidance failed and 9 and 7 Kinyarwanda sheaths were inserted. Farmetotronic bipolar active fixation right ventricular lead model 808791, serial number [id number] was advanced under fluoroscopy guidance and the tip was positioned in the right ventricular apex. Following this, a Medtronic bipolar active fixation right atrial lead model 778481, serial number [id number] was positioned in the right atrial appendage under fluoroscopy guidance. The leads were secured into place and were attached to a Medtronic dual-chamber permanent pacemaker generator model [id number], serial number [id number]. This was placed in the pocket that was subsequently closed in 3 layers. Hemostasis was secured. The right ventricular lead showed impedance of 988 ohms, sensing amplitude of 5 mV and a threshold of 0.75 V. The right atrial lead showed a sensing amplitude of 1.8 mV, impedance of 418 ohms and a threshold of 1.25 V. Patient tolerated the procedure well. There were no immediate complications. CONCLUSION Successful implantation of Medtronic dual-chamber permanent pacemaker for high- grade second-degree AV block and severe symptomatic bradycardia. She is feeling improved. glucose in 130s. No SOB, no CP. She wishes only for home health that speaks syriac or no home health at all. Problem list: Sinus bradycardia - s/p PPM insertion 04/29/2020 without complications HTN - norvasc 10 mg po daily on hold Hypothyroid state on replacement Acute on chronic renal insufficiency - vasomotor nephropathy 2 cm right retrocardiac nodule is likely a normal vessel. Correlation with an upright 2 view radiograph is suggested when feasible. Hyperinflation. Correlate for deep respiratory effort versus air Greater than 30 minutes spent on d/c Discharge Information Condition at Discharge: Improved Follow Up: Weeks (1) Disposition/Orders: D/C to Home Scheduled Alprazolam (Xanax) 0.25 Mg Tablet, 1 TAB PO DAILY for anxiety, #30 (Reported) Entered as Reported by: Latrice Young on 03/09/19937 Last Action: Continued on 04/27/20 1612 by DARRIUS PINEDA MD Amlodipine Besylate (Amlodipine Besylate) 10 Mg Tablet, 5 MG PO DAILY for HTN for 30 Days, #15 Prescribed by: HONEY ASHLEY MD on 04/30/20 1243 Atorvastatin Calcium (Atorvastatin Calcium) 40 Mg Tablet, 1 TAB PO DAILY for high cholesterol, #30 Ref 5 (Reported) Entered as Reported by: Latrice Young on 03/09/19937 Last Action: Continued on 04/27/201611 by DARRIUS PINEDA MD Insulin Degludec (Tresiba) 100 Unit/1 Ml Vial, 10 UNIT SQ DAILY for diabetes for 30 Days, #1 Prescribed by: HONEY ASHLEY MD on 04/30/20 0857 Levothyroxine Sodium (Levothyroxine Sodium) 112 Mcg Tablet, 1 TAB PO DAILY for hypo, #30 Ref 5 (Reported) Entered as Reported by: Latrice Young on 03/09/19937 Last Action: Continued on 04/27/201611 by DARRIUS PINEDA MD Discontinued Medications Insulin Aspart (Novolog) 100 Unit/1 Ml Cartridge, 100 UNIT SQ DAILY for diabetes, (Reported) Entered as Reported by: Latrice Young on 03/09/19937 Last Action: Discontinued on 04/27/20 1410 by SHERI NULL Meclizine Hcl (Meclizine Hcl) 25 Mg Tablet, 1 TAB PO TID for dizziness, #20 Prescribed by: LUIS DAY MD on 08/22/19 0701 Last Action: HELD on 04/27/201611 by DARRIUS PINEDA MD Justicifation of Admission Dx: Justifications for Admission: Justification of Admission Dx: Yes CHF: Hemodynamic Instability HONEY ASHLEY MD Apr 30, 2020 12:58
--- NOTE | 2020-04-30 13:02 | RAD ---
Single view of the chest. 04/30/2020 9:36 AM Indication: Reason: post op PPM / Spl. Instructions: / History: Comparison: Chest radiograph April 27, 2020 Findings: There is a new left-sided dual-lead pacemaking device from a subclavian approach. No pneumothorax or pleural effusion is seen. Heart size is stable. Bony thorax is intact. Surgical clips project over the right chest. IMPRESSION: 1. New dual-lead pacemaking device from left subclavian approach 2. Otherwise grossly stable radiographic appearance of the chest Electronically signed by: Andres Platt MD (04/30/2020 12:59 PM) [id number]
--- NOTE | 2020-04-30 13:35 | NUR ---
DISCHARGED PATIENT HOME. DISCHARGE INSTRUCTIONS GIVEN. PIV AND HEART MONITOR REMOVED. ESCORTED PATIENT PER WHEELCHAIR INTO A PRIVATE VEHICLE.
[2020-04-30] MEDS ORDERED: ENOXAPARIN 40 MG/0.4 ML SYRINGE. SQ SCH (17:00)
== END 2020-04-30 13:35 | disposition home or self-care (01) | DRG 242 ==
LOC: ER 04:25 → 2 SOUTH 05:39
PROVIDERS: ADMIT Internal Medicine; ATTEND Internal Medicine
PROC: 0JH606Z Insertion of Pacemaker, Dual Chamber into Chest Subcutaneous Tissue and Fascia, Open Approach (ICD-10-PCS; principal; 2020-04-29)
PROC: 02HK3JZ Insertion of Pacemaker Lead into Right Ventricle, Percutaneous Approach (ICD-10-PCS; 2020-04-29)
PROC: 02H63JZ Insertion of Pacemaker Lead into Right Atrium, Percutaneous Approach (ICD-10-PCS; 2020-04-29)
PROC: 4B02XSZ Measurement of Cardiac Pacemaker, External Approach (ICD-10-PCS; 2020-04-30)
DX: I44.1 Atrioventricular block, second degree (principal); E43 Unspecified severe protein-calorie malnutrition; N17.0 Acute kidney failure with tubular necrosis; I13.0 Hypertensive heart and chronic kidney disease with heart failure and stage 1 through stage 4 chronic kidney disease, or unspecified chronic kidney disease; R00.1 Bradycardia, unspecified; E78.5 Hyperlipidemia, unspecified; E03.9 Hypothyroidism, unspecified; E11.22 Type 2 diabetes mellitus with diabetic chronic kidney disease; E78.00 Pure hypercholesterolemia, unspecified; I50.9 Heart failure, unspecified; N18.3 Chronic kidney disease, stage 3 (moderate); Z79.899 Other long term (current) drug therapy; Z82.49 Family history of ischemic heart disease and other diseases of the circulatory system; Z83.3 Family history of diabetes mellitus; Z87.442 Personal history of urinary calculi; Z95.0 Presence of cardiac pacemaker; Z20.828 Contact with and (suspected) exposure to other viral communicable diseases
CPT/HCPCS: 33208; 36415; 71045; 80048; 80053; 80061; 80069; 82553; 82962; 83690; 83735; 83880; 84439; 84443; 84481; 84484; 85025; 85610; 93005; 93306; 96361; 96374; 96376; 99152; 99153; 99291; C1785; C1898; J0461; J0690; J1265; J1650; J1815; J2250; J3010; J3490; J7030; J7050; Q9967; G0378; U0003-CS

== ENCOUNTER → 2020-08-05 | Outpatient (CLI) | payer MEDICARE, MEDICAID ==
[2020-05-03 10:44] VITALS: BP 114/61
[~2020-08-05] MED LIST changes: +AMLO10TA8 PO; +REGADENOSON 0.4 MG/5 ML DISP.SYRIN. IV ONE
--- NOTE | 2020-08-05 12:33 | RAD ---
MR#: [id number] Date of Study: 08/05/2020 Ordering Physician: CHRISTIANO DENT Referring Physician: MANDEEP HARMAN Tech: RT Braydon (R) (N) APPROVED REPORT Test Type: Pharmacological Stress Nurse/Tech: Polo Arce RN Test Indications: Heart Block Cardiac History: HTN, PPM, DM Medications: See Electronic Medical Record Medical History: See Electronic Medical Record Resting ECG: V paced Resting Heart Rate: 67 bpm Resting Blood Pressure: 168/65mmHg Pretest Chest Pain: None Nurse/Tech Notes lungs CTA, S1S2 Consent: The procedure was explained to the patient in lay terms. Informed consent was witnessed. Claudio eout was entered into [employer]. History and Stress Test performed by JESUS Morrow Pharm. Details Pharmacologic stress testing was performed using 0.4mg per 5ml of regadenoson given intravenously ove r 7-10 seconds. Stress Symptoms No chest pain or symptoms. POST EXERCISE Reason for Termination: Infusion complete Max HR: 120 bpm Max Blood Pressure: 147/54mmHg Blood Pressure response to exercise: Normal blood pressure response during stress. Heart Rate response to exercise: normal response Chest Pain: No. Arrhythmia: No. ST Change: No. INTERPRETATION Stress EKG Conclusion: Non-diagnostic EKG due to pacing artifact. Imaging Protocol IMAGE PROTOCOL: Rest Tc-99m/stress Tc-99m 1 day Rest: Stress: Viability: Radiopharm.Tc99m [id number] Sestamibi Holz76nWi 30mCi Duration 15min. 15min. Img Date 08/05/2020 08/05/2020 Inj-Img [id number]. 60min. Rest Admin Site:IV - Left AntecubitalAdministrator:RT Braydon (Sergio)(N) Stress Admin Site: IV - Left AntecubitalAdministrator: JESUS Morrow STRESS DATA End Diast. Vol.86.0mlAv. Heart Rate72.0bpm End Syst. Vol.19.0mlCO Index BSA0.0L/min Myocardial Kpuy908.0gEject. Xtmizpvv88.0% Stress Rates Pk. Fill Rate3.75EDV/secLVtime Pk. Fill 208.66msec Pk. Empty Rate3.28ESV/secLVtime Pk. Vzolz987.41msec /3 Pk. Fill1.29EDV/sec Stress Scores Regional WT0.00Summed WT13.00 Regional WM0.00Summed WM0.00 LV Perfusion There is a small fixed APICAL defect suggestive of prior infarct without active ischemia. Wall Motion Abnormal septal motion due to pacing artifact, but otherwise, unremarkable. LV Perf. Quant 17 Seg. SSS9.00 17 Seg. SRS12.00 17 Seg. SDS0.00 Stress Defect Extent (% LAD)10.60Rest Defect Extent (% LAD)13.10Rev. Defect Extent (% LAD)0.00 Stress Defect Extent (% LCX) 20.00Rest Defect Extent (% LCX)32.50Rev. Defect Extent (% LCX)0.00 Stress Defect Extent (% RCA)3.30Rest Defect Extent (% RCA)20.00Rev. Defect Extent (% RCA)0.00 Stress Defect Extent (% FLORENCE)16.10Rest Defect Extent (% FLORENCE)24.80Rev. Defect Extent (% FLORENCE)0.00 Other Information Quality:Average Risk Assessment: Low Risk Conclusion 1. Non-diagnostic EKG due to pacing artifact 2. Fixed apical perfusion defect, no active ischemia. 3. Normal EF at > 65% 4. Low risk study Signed by : Dakota Cotton, Electronically Approved : 08/05/2020 12:32:50
== END | disposition home or self-care (01) ==
LOC: NM 09:05
PROVIDERS: ATTEND Internal Medicine Cardiovascular Disease
DX: I44.2 Atrioventricular block, complete (principal); I10 Essential (primary) hypertension
CPT/HCPCS: 78452; 93017; A9500; J2785

== ENCOUNTER → 2020-09-11 | Outpatient (CLI) | payer MEDICARE, MEDICAID ==
[2020-05-03 10:44] VITALS: BP 114/61
[~2020-09-11] MED LIST changes: +AMLO-187 PO; -AMLO10TA8 PO; -REGADENOSON 0.4 MG/5 ML DISP.SYRIN. IV ONE
--- NOTE | 2020-09-11 15:35 | RAD ---
EXAM: Bilateral screening mammogram. HISTORY: 80-year-old female with a history of right breast cancer, status post right breast conservation therapy, presents for screening mammography. TECHNIQUE: Full-field digital craniocaudal and mediolateral oblique views of both breasts are obtained for evaluation. Computer aided detection was not applied. COMPARISON: 08/23/2019 BREAST PARENCHYMAL DENSITY: Level C - Heterogeneously dense. FINDINGS: There is stable increased density and architectural distortion within the anterior right breast due to breast conservation therapy. There are associated axillary clips due to lymph node dissection. There is no new suspicious mass, calcification or distortion within either breast. IMPRESSION: BI-RADS Category 2: Benign finding(s). RECOMMENDATION: Annual mammography is recommended. If your mammogram demonstrates that you have dense breast tissue, which could hide abnormalities, and if you have other risk factors for breast cancer that have been identified, you might benefit from supplemental screening tests that may be suggested by your ordering physician. Dense breast tissue, in and of itself, is a relatively common condition. This information is not provided to cause undue concern, but rather to raise your awareness and to promote discussion with your physician regarding the presence of other risk factors, in addition to dense breast tissue. A report of your mammography results will be sent to you and your physician. You should contact your physician if you have any questions or concerns regarding this report. Mammography is a sensitive method for finding small breast cancers, but it does not detect them all and is not a substitute for careful clinical examination. A negative mammogram does not negate a clinically suspicious finding and should not result in delay in biopsying a clinically suspicious abnormality. PQRS compliance statement - Patient information was entered into a reminder system with a target due date for the next mammogram. "Our facility is accredited by the [employer] Mammography Program." Electronically signed by: Fay Hi MD (09/11/2020 3:33 PM) [id number]
== END ==
LOC: MAMMO 15:09
PROVIDERS: ATTEND Family Medicine
DX: Z12.31 Encounter for screening mammogram for malignant neoplasm of breast (principal)
CPT/HCPCS: 77067

== ENCOUNTER 2020-09-30 18:59 | Emergency (ER) | payer MEDICARE, MEDICAID ==
[~2020-09-30] VITALS: Ht 160 cm; Wt 90.0 kg
--- NOTE | 2020-09-30 20:49 | PHYS DOC ---
Past Medical History Past Medical History: Cancer, Diabetes-Type II, High Cholesterol, Hypertension, Hypothyroid, Kidney Stone Additional Past Medical Histor: Thyroid Past Surgical History: Pacemaker, Other Additional Past Surgical Histo: throat sx, tumor removed from R breast; kidney stone removal Smoking Status: Never Smoker Alcohol Use: None Drug Use: None General Adult EDM: Chief Complaint: HYPERTENSION HPI: HPI: Patient is a 80 year old Female who presents with vision loss and hypertension. Patient does not speak [place]an so HPI was obtained with translation from her daughter. Patient states she has had two episodes of hypertension followed by vision loss in bilateral eyes. The first episode occurred last Wednesday with her systolic blood pressure reading 168mmHg. She had progressive vision loss over a matter of seconds followed by 5-10 seconds of complete vision loss bilaterally. Her vision was completely restored after 5-10 seconds. She also noted an associated numbness in her head during the episode. Today she presents with a similar episode that occurred at around 1800. Patient reports a systolic blood pressure of around 150mmHg during the event followed by complete vision loss bilaterally. Patient reports her vision returned after 5-10 seconds. Patient reports palpitations associated with both events. Patient does not remember what her blood pressure normally runs. Patient states nothing seems to trigger the events, they come on randomly. Patient denies any pain, headache, vision loss, or palpitations at this time. Review of Systems: Review of Systems: Constitutional: Denies fever or chills. [] Eyes: Positive for vision changes HENT: Denies nasal congestion or sore throat. [] Respiratory: Denies cough or shortness of breath. [] Cardiovascular: Denies chest pain or edema. [Positive for palpitations] GI: Denies abdominal pain, nausea, vomiting, bloody stools or diarrhea. [] : Denies dysuria. [] Musculoskeletal: Denies back pain or joint pain. [] Integument: Denies rash. [] Neurologic: Denies headache, focal weakness or sensory changes. [] Endocrine: Denies polyuria or polydipsia. [] Lymphatic: Denies swollen glands. [] Psychiatric: Denies depression or anxiety. [] Heart Score: Risk Factors: Risk Factors: DM, Current or recent (<one month) smoker, HTN, HLP, family history of CAD, obesity. Risk Scores: Score 0 - 3: 2.5% MACE over next 6 weeks - Discharge Home Score 4 - 6: 20.3% MACE over next 6 weeks - Admit for Clinical Observation Score 7 - 10: 72.7% MACE over next 6 weeks - Early Invasive Strategies Allergies: Allergies: Allergies Coded Allergies Type Severity Reaction Last Updated Verified No Known Drug Allergies 03/09/19 No Physical Exam: PE: Constitutional: Well developed, well nourished, no acute distress, non-toxic appearance. [] HENT: Normocephalic, atraumatic, bilateral external ears normal, oropharynx moist, no oral exudates, nose normal. [] Eyes: PERRLA, EOMI, conjunctiva normal, no discharge. [] Neck: Normal range of motion, no tenderness, supple, no stridor. [] Cardiovascular:Heart rate regular rhythm, no murmur [] Lungs & Thorax: Bilateral breath sounds clear to auscultation [] Abdomen: Bowel sounds normal, soft, no tenderness, no masses, no pulsatile masses. [] Skin: Warm, dry, no erythema, no rash. [] Back: No tenderness, no CVA tenderness. [] Extremities: No tenderness, no cyanosis, no clubbing, ROM intact, no edema. [] Neurologic: Alert and oriented X 3, normal motor function, normal sensory function, no focal deficits noted. [] Psychologic: Affect normal, judgement normal, mood normal. [] EKG: EKG: EKG performed at 2027 sinus rhythm heart rate 69 Paced rhythm [] Radiology/Procedures: Radiology/Procedures: [] Impression: Findings: Subtle hypodensity within the left posterior limb internal capsule (series 2 image 15). No acute intracranial hemorrhage. No mass effect. No hydrocephalus. Brain parenchymal volume loss. Mild foci of decreased attenuation within the hemispheric white matter, most often due to chronic microvascular ischemia. Imaged orbits are unremarkable. Secretions within the right sphenoid sinus. Mastoid air cells are clear. No acute calvarial fracture. Impression: 1. Subtle hypodensity within the left posterior limb internal capsule, may represent age-indeterminate infarct or artifact. Recommend MRI to further evaluate. Course & Med Decision Making: Course & Med Decision Making Pertinent Labs and Imaging studies reviewed. (See chart for details) [] Patient was evaluated for chief complaint. Work-up consisted of laboratory analysis radiologic imaging and EKG. Results reviewed discussed with family. Patient noted to have an elevated blood glucose as well as elevated serum creatinine. Review of previous serum creatinine appears to be around baseline. CT head radiologist incidental finding hypoattenuation left internal capsule age-indeterminate infarct or artifact. Radiologist is recommending MRI for further evaluation. Patient does have an NIH is 0 she has no focal neurological deficits she does not have any visual changes at this time. Dragon Disclaimer: Dragon Disclaimer: This electronic medical record was generated, in whole or in part, using a voice recognition dictation system. Departure Departure Impression: Primary Impression: Hypertension Additional Impressions: Hyperglycemia Abnormal radiologic density Disposition: HOME SELF CARE/HOMELESS Condition: STABLE Referrals: MAXIMILIAN MEDINA MD (PCP) Patient Instructions: Hyperglycemia, Hypertension, Incidental Abnormal Radiological Finding NIHSS Stroke Scale NIH Stroke Scale: NIH Stroke Scale Response (Comments) Value Level of Consciousness: 0 Alert/Responsive 0 LOC Questions: 0 Answers both correctly 0 LOC Commands: 0 Performs both tasks 0 Best Gaze: 0 Normal 0 Visual: 0 No visual loss 0 Facial Palsy: 0 Normal, symmetrical 0 Motor - Left Arm 0 No drift 0 Motor - Right Arm 0 No drift 0 Motor - Left Leg 0 No drift 0 Motor: Right Leg 0 No drift 0 Limb Ataxia: 0 Absent 0 Sensory: 0 No loss 0 Best Language: 0 Normal 0 Dysathria: 0 Normal 0 Extinction and Inattention: 0 Normal 0 Total 0 LAI BUSTAMANTE I DO Sep 30, 2020 20:49
[2020-09-30 21:19] LABS: BASO % 1 % (0-3); EOS # 0.2 x10^3/uL (0.0-0.7); EOS % 3 % (0-3); HEMATOCRIT 30.7 % (36.0-47.0); HEMOGLOBIN 10.2 g/dL (12.0-15.5); LYMPH # 1.2 x10^3/uL (1.0-4.8); LYMPH % 15 % (24-48); MEAN CORPUSCULAR HEMOGLOBIN 29 pg (25-35); MEAN CORPUSCULAR HGB CONC 33 g/dL (31-37); MEAN CORPUSCULAR VOLUME 87 fL (79-100); MONO # 0.6 x10^3/uL (0.0-1.1); MONO % 7 % (0-9); NEUT % 74 % (31-73); PLATELET COUNT 246 x10^3/uL (140-400); RED BLOOD COUNT 3.55 x10^6/uL (3.50-5.40); RED CELL DISTRIBUTION WIDTH 13.5 % (11.5-14.5); WHITE BLOOD COUNT 8.1 x10^3/uL (4.0-11.0)
[2020-09-30 21:27] LABS: CALCIUM 8.3 mg/dL (8.5-10.1); CREATININE 1.6 mg/dL (0.6-1.0); GFR 31.1; POTASSIUM 4.8 mmol/L (3.5-5.1)
[2020-09-30 21:32] LABS: ALBUMIN 2.9 g/dL (3.4-5.0); ALBUMIN/GLOBULIN RATIO 0.9 (1.0-1.7); TOTAL BILIRUBIN 0.1 mg/dL (0.2-1.0); TOTAL PROTEIN 6.3 g/dL (6.4-8.2)
[2020-09-30 22:30] VITALS: BP 190/84
--- NOTE | 2020-09-30 22:46 | RAD ---
CT HEAD WO CONTRAST History: Reason: HEADAHCE HYPERTENSION VISUAL CHANGE / Spl. Instructions: / History: Comparison: August 22, 2019 Technique: Noncontrast CT imaging was performed of the head. Exposure: One or more of the following individualized dose reduction techniques were utilized for this examination: 1. Automated exposure control 2. Adjustment of the mA and/or kV according to patient size 3. Use of iterative reconstruction technique. Findings: Subtle hypodensity within the left posterior limb internal capsule (series 2 image 15). No acute intracranial hemorrhage. No mass effect. No hydrocephalus. Brain parenchymal volume loss. Mild foci of decreased attenuation within the hemispheric white matter, most often due to chronic microvascular ischemia. Imaged orbits are unremarkable. Secretions within the right sphenoid sinus. Mastoid air cells are clear. No acute calvarial fracture. Impression: 1. Subtle hypodensity within the left posterior limb internal capsule, may represent age-indeterminate infarct or artifact. Recommend MRI to further evaluate. Electronically signed by: Raz Dumont DO (09/30/2020 10:42 PM) TY
--- NOTE | 2020-10-01 11:34 | EKG ---
[facility] [address] [place] [address] Test Date: 2020-09-30 Test Time: 20:28:00 Pat Name: NAN BEAULIEUDepartment: Room: Gender: F [employer] Director: : 1940 Requested By: LAI BUSTAMANTE Order Number: [id number] Reading MD: Measurements Intervals [place] Rate: 69 P: 54 MS: 304 QRS: -149 QRSD: 94 T: 90 QT: 456 QTc: 490 Interpretive Statements SINUS RHYTHM PROLONGED MS INTERVAL ABNORMAL RIGHT SUPERIOR AXIS DEVIATION ST & T ABNORMALITY, CONSIDER RECENT HIGH LATERAL MYOCARDIAL OR PERICARDIAL DAMAGE PROLONGED QT ABNORMAL ECG RI6.01 No previous ECG available for comparison
== END 2020-09-30 23:44 | disposition home or self-care (01) ==
LOC: ER 18:59
DX: I10 Essential (primary) hypertension (principal); E11.65 Type 2 diabetes mellitus with hyperglycemia; R00.2 Palpitations; E78.00 Pure hypercholesterolemia, unspecified; E03.9 Hypothyroidism, unspecified; Z87.442 Personal history of urinary calculi; Z95.0 Presence of cardiac pacemaker; Z98.890 Other specified postprocedural states; Z85.9 Personal history of malignant neoplasm, unspecified
CPT/HCPCS: 36415; 70450; 80053; 84484; 85025; 93005; 99285

== ENCOUNTER → 2021-03-24 | Outpatient (CLI) | payer MEDICARE, MEDICAID ==
--- NOTE | 2021-03-24 16:17 | RAD ---
EXAM: Lower extremity arterial Doppler sonogram with ankle-brachial indices (MADELINE). HISTORY: Toe ulceration. Diabetes. Peripheral vascular disease. TECHNIQUE: Doppler sonographic evaluation of the lower extremities was performed and pressure reading s were assessed. FINDINGS: Right brachial pressure: 139 mmHg Left brachial pressure: 129 mmHg Right ankle pressure: 161 mmHg Right MADELINE: 1.2 Left ankle pressure: 142 mmHg Left MADELINE: 1.0 Right lower extremity: There are biphasic waveforms throughout the right lower extremity arteries. Th ere is an elevated peak systolic velocity within the right common femoral artery, measuring 173 cm/s. There are elevated peak systolic velocities within the right superficial femoral artery, measuring 1 79 cm/s proximally, 1 is 65 cm/s within its mid aspect and 284 cm/s within its distal aspect. Left lower extremity: There are abnormal monophasic waveforms within the distal left posterior tibial artery, anterior tibial artery and dorsalis pedis artery, suggesting hemodynamically significant pro ximal stenosis. There are biphasic waveforms elsewhere within the left lower extremity arteries. Ther e are elevated peak systolic velocities within the left superficial femoral artery, measuring 165 cm/ s proximally, 200 cm/s within its mid aspect and 463 cm/s within its distal aspect. IMPRESSION: 1. Normal bilateral ankle-brachial indices. 2. Elevated peak systolic velocities within the left greater than right superficial femoral arteries, suggesting severe stenosis. There are lesser degrees of stenosis involving the bilateral proximal an d mid superficial femoral arteries and right common femoral artery. 3. Monophasic waveforms within the left posterior tibial artery, anterior tibial artery and dorsalis pedis artery, likely due to hemodynamically significant proximal stenosis. 4. No evidence of arterial occlusion. Electronically signed by: Fay Hi MD (03/24/2021 4:14 PM) [id number]
== END ==
LOC: US 14:58
PROVIDERS: ATTEND Family Medicine
DX: L97.529 Non-pressure chronic ulcer of other part of left foot with unspecified severity (principal); L97.519 Non-pressure chronic ulcer of other part of right foot with unspecified severity
CPT/HCPCS: 93922; 93925

== ENCOUNTER → 2021-09-18 | Outpatient (CLI) | payer MEDICARE, MEDICAID ==
[~2021-09-18] MED LIST changes: -BENA40TA3 PO; +BENA40TA74 PO
--- NOTE | 2021-09-18 16:27 | CARD ---
MR#: [id number] Date of Study: 09/18/2021 Ordering Physician: CHRISTIANO DENT, Referring Physician: CHRISTIANO DENT, Tech: Haley Ramos [facility] APPROVED REPORT EXAM: Two-dimensional and M-mode echocardiogram with Doppler and color Doppler. Other Information Quality : GoodHR: 70bpm Rhythm : Pacemaker INDICATION Arrhythmia Complete Heart Block Surgery/Intervention Pacemaker: Date: 04/2020 2D DIMENSIONS RVDd3.1 (2.9-3.5cm)Left Atrium(2D)3.4 (1.6-4.0cm) IVSd1.0 (0.7-1.1cm)Aortic Root(2D)2.8 (2.0-3.7cm) LVDd5.1 (3.9-5.9cm)LVOT Diameter2.1 (1.8-2.4cm) PWd0.9 (0.7-1.1cm)LVDs3.4 (2.5-4.0cm) FS (%) 33.3 %SV75.9 ml Aortic Valve AoV Peak Gurpreet.156.8cm/sAoV VTI34.1cm AO Peak GR.9.8mmHgLVOT Peak Gurpreet.98.7cm/s LVOT VTI 21.27cmAO Mean GR.6mmHg LUIS ARMANDO (VMAX)1.34wl8MVP (VTI)2.08cm2 Mitral Valve MV E Nlnlhkln490.9cm/sMV E Peak Gr.153mmHg MV DECEL [id number] A Tpunovig813.9cm/s MV E Mean Gr.4mmHgMV [id number] E/A Ratio1.0MVA (PHT)4.95cm2 TDI E/Lateral E'16.8E/Medial E'35.3 Pulmonary Valve PV Peak Eavsngqv46.6cm/sPV Peak Grad.4mmHg Tricuspid Valve TR P. Afwtaugt158qn/sRAP AWLWFFHS5kyKm TR Peak Gr.05wtBySVZB22tcWf Pulmonary Vein S1 Lsxjwdqd28.6cm/sD2 Icjlzaec05.7cm/s LEFT VENTRICLE The left ventricle is normal size. There is normal left ventricular wall thickness. The left ventricu lar systolic function is normal and the ejection fraction is within normal range. The Ejection Fracti on is 50-55%. Wall motion consistent with pacemaker activation. Tissue Doppler imaging reveals modera te left ventricular diastolic dysfunction. RIGHT VENTRICLE The right ventricle is normal size. There is normal right ventricular wall thickness. The right ventr icular systolic function is normal. ATRIA The left atrium is borderline dilated. The right atrium size is normal. The interatrial septum is int act with no evidence for an atrial septal defect or patent foramen ovale as noted on 2-D or Doppler i maging. AORTIC VALVE The aortic valve is normal in structure and function. Doppler and Color Flow revealed trace aortic re gurgitation. Calculated aortic valve area is 1.95 cm2 with maximum pressure gradient of 11 mmHg and m ngoc pressure gradient of 7 mmHg. There is no significant aortic valvular stenosis. MITRAL VALVE The mitral valve is normal in structure and function. There is no evidence of mitral valve prolapse. There is mild mitral stenosis with a mean gradient measuring 4.9 mmHg. Doppler and Color-flow reveale d mild to moderate mitral regurgitation. TRICUSPID VALVE The tricuspid valve is normal in structure and function. Doppler and Color Flow revealed mild tricusp id regurgitation with an estimated PAP of 40 mmHg. There is no tricuspid valve stenosis. PULMONIC VALVE The pulmonic valve is not well visualized. Doppler and Color Flow revealed trace pulmonic valvular re gurgitation. GREAT VESSELS The aortic root is normal in size. The ascending aorta is normal in size. The IVC is normal in size a nd collapses >50% with inspiration. PERICARDIAL EFFUSION There is no evidence of significant pericardial effusion. Critical Notification Critical Value: No <Conclusion> The left ventricle is normal size. The left ventricular systolic function is normal and the ejection fraction is within normal range. The Ejection Fraction is 50-55%. Wall motion consistent with pacemaker activation. Doppler and Color Flow revealed trace aortic regurgitation. There is no significant aortic valvular stenosis. Doppler and Color-flow revealed mild to moderate mitral regurgitation. Doppler and Color Flow revealed mild tricuspid regurgitation with an estimated PAP of 40 mmHg. Signed by : Alex Power MD Electronically Approved : 09/18/2021 16:26:33
== END ==
LOC: ECHO 09:03
PROVIDERS: ATTEND Internal Medicine Cardiovascular Disease
DX: I08.1 Rheumatic disorders of both mitral and tricuspid valves (principal); I44.2 Atrioventricular block, complete; I49.9 Cardiac arrhythmia, unspecified
CPT/HCPCS: 93306